=== PATIENT | male | born 1970 | race Caucasian/White ===

== ENCOUNTER → 2016-06-07 | Outpatient (CLI) | payer OTHER ==
[~2016-06-07] MED LIST: LCTX PO; LDXCR60 EXT; LISI-729 PO; METF-384 PO; MULTTAB58 PO; OMEG10007 PO; SITA50TA PO
[2016-06-07 09:28] LABS: BASO % 0.7 %; BASO ABS # 0.04 K/uL (0-0.2); COMPLETE YES; EOS % 11.2 %; IG% 0.5 %; LYMPH % 32.6 %; LYMPH ABS # 1.97 K/uL (1.2-3.4); MEAN CELL VOLUME 87.8 fL (80-100); MEAN CORPUSCULAR HEMOGLOBIN 30.4 pg (25-34); MEAN CORPUSCULAR HGB CONC 34.7 g/dl (32-36); MEAN PLATELET VOLUME 10.2 fL (7.4-10.4); MONO % 11.1 %; NEUT % 43.9 %; PLATELET COUNT 210 K/uL (130-400); WHITE BLOOD COUNT 6.05 K/uL (4.8-10.8)
[2016-06-07 09:37] LABS: ALT/SGPT 53 U/L (12-78); BLOOD UREA NITROGEN 18 mg/dl (7-18); BUN/CREATININE RATIO 18.2 (10-20); CALCIUM 9.2 mg/dl (8.5-10.1); CARBON DIOXIDE 25 mmol/L (21-32); CHLORIDE 102 mmol/L (98-107); CHOLESTEROL 189 mg/dl (0-200); CREATININE 0.96 mg/dl (0.60-1.40); GLUCOSE 117 mg/dl (70-99); POTASSIUM 4.2 mmol/L (3.5-5.1); SODIUM 136 mmol/L (136-145); TRIGLYCERIDES 270 mg/dl (0-150); VERY LOW DENSITY LIPOPROT CALC 54 mg/dl
[2016-06-07 09:40] LABS: ALKALINE PHOSPHATASE 50 U/L (45-117); AST/SGOT 13 U/L (15-37); CHOLESTEROL/HDL RATIO 5.4; HDL CHOLESTEROL 35 mg/dl; LDL CHOLESTEROL CALCULATED 100 mg/dl
[2016-06-07 09:51] LABS: ESTIMATED AVERAGE GLUCOSE 146 mg/dl; HA1C FLAG Normal (Normal)
[2016-06-07 10:09] LABS: RATIO 6.9 mcg/mg (0-30.0)
== END | disposition home or self-care (01) ==
LOC: C.LAB1850 07:07
PROVIDERS: ATTEND Nurse Practitioner Family
DX: E88.81 Metabolic syndrome and other insulin resistance (principal); E78.00 Pure hypercholesterolemia, unspecified; E11.9 Type 2 diabetes mellitus without complications; I10 Essential (primary) hypertension

== ENCOUNTER → 2016-09-25 | Outpatient (CLI) | payer OTHER ==
[2016-09-25 08:06] LABS: THYROID STIMULATING HORMONE 2.39 uIu/ml (0.300-4.500)
== END | disposition home or self-care (01) ==
LOC: C.LAB1850 07:06
PROVIDERS: ATTEND Nurse Practitioner Family
DX: F68.8 Other specified disorders of adult personality and behavior (principal); Z13.29 Encounter for screening for other suspected endocrine disorder

== ENCOUNTER → 2016-12-14 | Outpatient (CLI) | payer OTHER ==
[2016-12-14 10:09] LABS: BLOOD UREA NITROGEN 17 mg/dl (7-18); BUN/CREATININE RATIO 18.9 (10-20); CALCIUM 9.3 mg/dl (8.5-10.1); CARBON DIOXIDE 27 mmol/L (21-32); CHLORIDE 108 mmol/L (98-107); CHOLESTEROL 191 mg/dl (0-200); CREATININE 0.89 mg/dl (0.60-1.40); GLUCOSE 107 mg/dl (70-99); POTASSIUM 4.4 mmol/L (3.5-5.1); SODIUM 142 mmol/L (136-145); TRIGLYCERIDES 161 mg/dl (0-150); VERY LOW DENSITY LIPOPROT CALC 32 mg/dl
[2016-12-14 10:12] LABS: CHOLESTEROL/HDL RATIO 5.2; HDL CHOLESTEROL 37 mg/dl; LDL CHOLESTEROL CALCULATED 122 mg/dl
[2016-12-14 10:13] LABS: ESTIMATED AVERAGE GLUCOSE 154 mg/dl; HA1C FLAG Normal (Normal)
== END | disposition home or self-care (01) ==
LOC: C.LAB1850 06:54
PROVIDERS: ATTEND Nurse Practitioner Family
DX: E88.81 Metabolic syndrome and other insulin resistance (principal); E78.00 Pure hypercholesterolemia, unspecified; E11.9 Type 2 diabetes mellitus without complications; I10 Essential (primary) hypertension

== ENCOUNTER → 2017-04-10 | Outpatient (CLI) | payer OTHER ==
[2017-04-10 09:51] LABS: HEMOGLOBIN A1C 6.7 % (4.5-5.6)
[2017-04-10 09:55] LABS: BLOOD UREA NITROGEN 21 mg/dl (7-18); CALCIUM 9.6 mg/dl (8.5-10.1); CARBON DIOXIDE 29 mmol/L (21-32); CREATININE 1.02 mg/dl (0.60-1.40); GLUCOSE 122 mg/dl (70-99); POTASSIUM 4.5 mmol/L (3.5-5.1); SODIUM 135 mmol/L (136-145)
== END | disposition home or self-care (01) ==
LOC: C.LAB1850 07:06
PROVIDERS: ATTEND Nurse Practitioner Family
DX: E11.9 Type 2 diabetes mellitus without complications (principal)

== ENCOUNTER → 2017-07-24 | Outpatient (CLI) | payer OTHER ==
[2017-07-24 09:52] LABS: HEMOGLOBIN A1C 7.5 % (4.5-5.6)
[2017-07-24 09:58] LABS: ALBUMIN 4.3 gm/dl (3.4-5.0); ALT/SGPT 56 U/L (12-78); AST/SGOT 20 U/L (15-37); BLOOD UREA NITROGEN 21 mg/dl (7-18); CALCIUM 9.7 mg/dl (8.5-10.1); CARBON DIOXIDE 29 mmol/L (21-32); CREATININE 1.11 mg/dl (0.60-1.40); GLUCOSE 148 mg/dl (70-99); POTASSIUM 4.6 mmol/L (3.5-5.1); SODIUM 135 mmol/L (136-145)
[2017-07-24 10:01] LABS: ALKALINE PHOSPHATASE 54 U/L (45-117); CHOLESTEROL 209 mg/dl (0-200); LDL CHOLESTEROL CALCULATED 124 mg/dl; TOTAL PROTEIN 8.6 gm/dl (6.4-8.2)
== END | disposition home or self-care (01) ==
LOC: C.LAB1850 08:10
PROVIDERS: ATTEND Nurse Practitioner Family
DX: E88.81 Metabolic syndrome and other insulin resistance (principal); E78.00 Pure hypercholesterolemia, unspecified; E11.9 Type 2 diabetes mellitus without complications; I10 Essential (primary) hypertension

== ENCOUNTER → 2017-11-13 | Outpatient (CLI) | payer OTHER ==
[2017-11-13 09:48] LABS: HEMOGLOBIN A1C 8.3 % (4.5-5.6)
[2017-11-13 09:53] LABS: ALBUMIN 4.3 gm/dl (3.4-5.0); ALKALINE PHOSPHATASE 41 U/L (45-117); ALT/SGPT 54 U/L (12-78); AST/SGOT 19 U/L (15-37); BLOOD UREA NITROGEN 22 mg/dl (7-18); CARBON DIOXIDE 25 mmol/L (21-32); CREATININE 0.95 mg/dl (0.60-1.40); GLUCOSE 149 mg/dl (70-99); POTASSIUM 4.3 mmol/L (3.5-5.1); SODIUM 135 mmol/L (136-145); TOTAL PROTEIN 7.6 gm/dl (6.4-8.2)
== END | disposition home or self-care (01) ==
LOC: C.LAB1850 07:21
PROVIDERS: ATTEND Nurse Practitioner Family
DX: E11.9 Type 2 diabetes mellitus without complications (principal)

== ENCOUNTER 2019-05-02 04:14 | Inpatient (IN) ==
[2019-05-02] MEDS ORDERED: ONDANSETRON INJ 2 MG/ML 2 ML VIAL IV STA (04:46)
[2019-05-02] MEDS ORDERED: SODIUM CHLORIDE 0.9% 1000ML 1,000 ML IV ONE ×2 (04:46→05:31)
[2019-05-02] MEDS ORDERED: fentaNYL citrate 100 MCG/2 ML VIAL IV STA (04:46)
--- NOTE | 2019-05-02 04:51 | Emergency Department Note ---
ED Provider Note Name: MIRIAM PARKINSON Age: 48 Arrives Via: Family Vehicle Informant: Patient, CC: Abdominal pain HPI: 48M arrives for evaluation of abdominal pain. Patient with 12 hours severe abdominal pain. Associated with mild diarrhea initially which has stopped. Associated with vomiting throughout night. No cp, sob, headache, fevers, leg swelling, rashes nor other symptoms. No medications taken for this. Laying still makes better. Movement makes worse. No trauma/injury. history of umbilical hernia repair 20 yrs ago. ROS: See above HPI for pertinent positives & negatives. A total of 10 systems reviewed and were otherwise negative. Past Medical History:DMII, HTN, DLP Past Surgical History:Umbilical Hernia Repair, [place] Teeth, Hand surgery Family History:See Below Social History:See Below Home Medications:ATorvastatin, lisinopril, metformin, trulicity Allergies:none Vitals:Blood Pressure 152/82, Pulse 74, Resp 16, T 36.4C, O2 99% on RA Physical Exam: GENERAL: Patient is very uncomfortable appearing and in moderate distress. EYES: No scleral icterus, unremarkable pupils. ENT: Mucous membranes moist, no nasal congestion. NECK: No masses appreciated, nomeningismus, trachea is midline. RESPIRATORY: No dyspnea. Clear to auscultation and equal bilaterally. No wheeze, no rhonchi. CARDIOVASCULAR: Regular rate and rhythm.No murmurs, rubs, gallops appreciated. GASTROINTESTINAL: Mildly distended, hyperactive bowel sounds, diffuse nonspecific right abdominal TTP, umbilical hernia small non-tender. BACK: No midline tenderness, no CVA tenderness EXTREMITIES: Normal motion all extremities, no cyanosis, no edema. NEUROLOGIC: Alert and oriented, no acute motor or sensory deficits, no focal weakness, cranial nerves grossly intact. SKIN: No rash, no jaundice, no diaphoresis. ED Course: Prior Medical Record, Triage/Nursing Notes, Medications, Allergies reviewed by Me Vital Signs: reviewed and remarkable for HTN Labs:Reviewed and remarkable for mild bump in cr Interventions: Saline lock, fentanyl 100mcg IV, zofran 4mg IV, dilaudid 1mg IV x 3, nss bolus 1 L IV x 2, NSS infusion 125ml/hr IV Imaging:[facility] Radiologist interpretation reviewed by me: Proximal 6 mm right ureteral stone with moderate hydro Consults:Dr Antonette OLIVARES Hospitalist Reassessments/Times: Gradually improving pain though still requiring IV narcotics Blood pressure:Normal.No Referral necessary Disposition:Hospitalization Differentials: Bowel obstruction, Gastroenteritis, GB disase, Renal Colic, Pyelonephritis, AAA, Appendicitis, amongst others Medical Decision Makin yr old male with DMII, HTN, DLP with previous umbilical hernia repair arrives for evaluation severe worsening abdominal pain after day of nausea, vomiting diarrhea. Dehydrated on exam and very uncomfortable. Took multiple rounds IV narcotics to get comfortable. Labs looking ok. Given pain and findings felt CT indicated. CT with right prox ureteral stone with hydro. Given persistent pain, proximal stone and bump from baseline cr will need to come in. Hydrated here and will bring in to hospitalist. Impression: Calculus of proximal right ureter Hydronephrosis of right kidney Intractable Abdominal pain Kavon Jeronimo MD Impression & Plan Calculus of proximal right ureter, Hydronephrosis of right kidney, Intractable abdominal pain Past Med/Surg History Social History marital status: Current Living Situation: Spouse and Family current occupational status: employed Feels Safe at Home: Yes Smoking Status: Never smoker Second Hand Exposure: No ; Hx Alcohol Use: Yes Alcohol type: beer Alcohol Intake Frequency: Holi days/Special Occasions Hx Substance Use: No Dental Care, Regularly: Yes Physical Activity Frequency: 1-2 Times per Week Seatbelt Use: always Results & Data Vital Signs Vital Signs - 24 hr 05/02/19 04:22 05/02/19 04:56 05/02/19 06:02 Temperature 36.4 C L Temperature Source Oral Pulse Rate 74 Pulse Rate [Apical] 69 95 H Respiratory Rate 16 18 18 Respiratory Effort / Characteristics Non-Labored Spontaneous Respiratory Depth Normal Blood Pressure 152/82 H Blood Pressure [Left Arm] 141/77 H 142/87 H Blood Pressure Mean 105 Blood Pressure Mean [Left Arm] 98 105 Pulse Oximetry 99 99 95 Oxygen Delivery Method Room Air Room Air Nasal Cannula Oxygen Flow Rate 2 Sepsis Recent Fever Within 48 Hours No Sepsis New/Unexplained Change in Mental Status No Sepsis Action Taken by Nursing No Action Required 05/02/19 06:41 Temperature Temperature Source Pulse Rate Pulse Rate [Apical] 102 H Respiratory Rate 18 Respiratory Effort / Characteristics Respiratory Depth Blood Pressure Blood Pressure [Left Arm] 136/77 Blood Pressure Mean Blood Pressure Mean [Left Arm] 96 Pulse Oximetry 98 Oxygen Delivery Method Nasal Cannula Oxygen Flow Rate 2 Sepsis Recent Fever Within 48 Hours Sepsis New/Unexplained Change in Mental Status Sepsis Action Taken by Nursing Laboratory Data Result diagrams: 05/02/19 03:36 05/02/19 05:46 Lab Results 05/02/19 05/02/19 05/02/19 Range/Units 03:36 03:36 05:46 WBC 12.10 H (4.8-10.8) K/uL RBC 5.00 (4.7-6.1) M/uL Hgb 15.2 (14.0-18.0) g/dL Hct 43.6 (42-52) % MCV 87.2 (80-100) fL MCH 30.4 (25-34) pg MCHC 34.9 (32-36) g/dL RDW Std Deviation 38.6 (36.4-46.3) fL RDW Coeff of Sheldon 12.1 (11.5-14.5) % Plt Count 218 (130-400) K/uL MPV 10.0 (7.4-10.4) fL Immature Gran % (Auto) 0.6 % Neut % (Auto) 81.3 % Lymph % (Auto) 9.2 % [place] % (Auto) 7.7 % Eos % (Auto) 1.0 % Baso % (Auto) 0.2 % Immature Gran # (Auto) 0.07 H (0.00-0.02) K/uL Neut # (Auto) 9.85 H (1.4-6.5) K/uL Lymph # (Auto) 1.11 L (1.2-3.4) K/uL [place] # (Auto) 0.93 H (0.11-0.59) K/uL Eos # (Auto) 0.12 (0-0.5) K/uL Baso # (Auto) 0.02 (0-0.2) K/uL Sodium 133 L (136-145) mmol/L Potassium 4.6 (3.5-5.1) mmol/L Chloride 102 (98-107) mmol/L Carbon Dioxide 24 (21-32) mmol/L Anion Gap 7.0 (3-11) BUN 27 H (7-18) mg/dl Creatinine 1.50 H (0.6-1.4) mg/dl Est Cr Clr Drug Dosing 75.0 ml/min Est GFR ( Amer) 62.9 Est GFR (Non-Af Amer) 54.3 BUN/Creatinine Ratio 18.2 (10-20) Glucose 213 H (70-99) mg/dl Calcium 9.8 (8.5-10.1) mg/dl Total Bilirubin 0.7 (0.2-1) mg/dl Direct Bilirubin 0.1 (0-0.2) mg/dl AST 10 L (15-37) U/L ALT 36 (12-78) U/L Alkaline Phosphatase 59 (45-117) U/L Total Protein 8.3 H (6.4-8.2) gm/dl Albumin 4.2 (3.4-5.0) gm/dl Lipase 113 (73-393) U/L Administered Medications Sodium Chloride (Nss 1000ml) 1,000 mls @ 125 mls/hr IV .Q8H YAN Stop: 06/01/19 06:29 Last Admin: 05/02/19 06:28 Dose: 125 mls/hr Documented by: [id number] Ioversol (Optiray 320 100ml) 94 ml IV ONCE PRN PRN Reason: Interaction Checking Stop: 05/06/19 05:38 Last Admin: 05/02/19 05:39 Dose: 94 ml Documented by: [id number] Discontinued Medications Fentanyl Citrate (Fentanyl Citrate) 100 mcg IV NOW STA Stop: 05/02/19 04:47 Last Admin: 05/02/19 04:54 Dose: 100 mcg Documented by: [id number] Hydromorphone HCl (Dilaudid) 1 mg IV NOW STA Stop: 05/02/19 05:20 Last Admin: 05/02/19 05:22 Dose: 1 mg Documented by: [id number] Hydromorphone HCl (Dilaudid) 1 mg IV NOW STA Stop: 05/02/19 05:50 Last Admin: 05/02/19 05:53 Dose: 1 mg Documented by: [id number] Hydromorphone HCl (Dilaudid) 1 mg IV NOW STA Stop: 05/02/19 06:19 Last Admin: 05/02/19 06:29 Dose: 1 mg Documented by: [id number] Sodium Chloride (Nss 1000ml) 1,000 mls @ 999 mls/hr IV .Q1H1M ONE Stop: 05/02/19 05:46 Last Infusion: 05/02/19 05:56 Dose: 0 mls/hr Documented by: [id number] Admin: 05/02/19 04:52 Dose: 999 mls/hr Documented by: [id number] Sodium Chloride (Nss 1000ml) 1,000 mls @ 999 mls/hr IV .Q1H1M ONE Stop: 05/02/19 06:31 Last Infusion: 05/02/19 06:50 Dose: 0 mls/hr Documented by: [id number] Admin: 05/02/19 05:53 Dose: 999 mls/hr Documented by: [id number] Ondansetron HCl (Zofran) 4 mg IV NOW STA Stop: 05/02/19 04:47 Last Admin: 05/02/19 04:53 Dose: 4 mg Documented by: [id number] Discharge Plan Visit Data Chief Complaint: Vomiting Stated Complaint: ABD PAIN, VOMITING, DIZZY ED Provider: Kavon Jeronimo Discharge Problem: Calculus of proximal right ureter, Hydronephrosis of right kidney, Intractable abdominal pain Forms Stand Alone Forms: My [facility] Prescriptions Prescriptions: No Action metformin 1,000 mg tablet 1,000 mg PO BID Qty: 60 RF: 0 Trulicity 1.5 mg/0.5 mL pen injector See Rx Instructions SQ WEEKLY Qty: 2 RF: 5 amoxicillin 500 mg capsule 500 mg PO BID Qty: 60 RF: 3 atorvastatin 10 mg tablet 10 mg PO DAILY Qty: 90 RF: 0 lisinopril 10 mg tablet 10 mg PO DAILY Qty: 90 RF: 0 econazole 1 % cream 1 appln topical BID 28 Days Qty: 30 RF: 1
[2019-05-02 05:00] LABS: Basophils # (auto) 0.02 K/uL (0-0.2); Basophils % (auto) 0.2 %; Eosinophils # (auto) 0.12 K/uL (0-0.5); Hematocrit (blood only) 43.6 % (42-52); Hemoglobin 15.2 g/dL (14.0-18.0); Immature Granulocytes # (auto) 0.07 K/uL (0.00-0.02); Immature Granulocytes % (auto) 0.6 %; Lymphocytes # (auto) 1.11 K/uL (1.2-3.4); Lymphocytes % (auto) 9.2 %; Mean Corpuscular Hemoglobin 30.4 pg (25-34); Mean Corpuscular Hgb Conc 34.9 g/dL (32-36); Mean Corpuscular Volume 87.2 fL (80-100); Monocytes # (auto) 0.93 K/uL (0.11-0.59); Monocytes % (auto) 7.7 %; Neutrophils # (auto) 9.85 K/uL (1.4-6.5); Neutrophils % (auto) 81.3 %; Platelet Count 218 K/uL (130-400); RDW Coefficient of Variation 12.1 % (11.5-14.5); RDW Standard Deviation 38.6 fL (36.4-46.3)
[2019-05-02] MEDS ORDERED: HYDROmorphone INJ 1 MG/ML SYRINGE IV STA ×3 (05:19→06:18)
[2019-05-02 05:25] LABS: Albumin Level 4.2 gm/dl (3.4-5.0); BUN Creatinine Ratio 18.2 (10-20); Bilirubin,Total 0.7 mg/dl (0.2-1); Calcium 9.8 mg/dl (8.5-10.1); Est GFR (African American) 62.9; Est GFR (Non-African American) 54.3; Total Protein 8.3 gm/dl (6.4-8.2)
[2019-05-02] MEDS ORDERED: IOVERSOL 100ml IV PRN (05:39)
[2019-05-02 06:13] LABS: Potassium 4.6 mmol/L (3.5-5.1)
[2019-05-02 06:20] LABS: Bilirubin Direct 0.1 mg/dl (0-0.2)
[2019-05-02] MEDS ORDERED: SODIUM CHLORIDE 0.9% 1000ML 1,000 ML IV SCH (06:30)
[2019-05-02 07:48] LABS: Appearance Urine Clear (Clear); Bacteria Urine Automated Negative (Negative); Bilirubin Urine Negative (Negative); Blood Urine Trace (Negative); Cast Urine Automated 0 /lpf (0-5); Color Urine Yellow; Epithelial Cell Urine Auto 0-5 /lpf (0-5); Glucose Urine UA 2+ (Negative); Ketones Urine Trace (Negative); Leukocyte Esterase Urine Negative (Negative); Nitrite Urine Negative (Negative); Protein Urine Negative (Negative); RBC Urine Automated 0-4 /hpf (0-4); Specific Gravity Urine 1.033 (1.000-1.030); Urobilinogen Urine Negative (Negative); WBC Urine Automated 0 /hpf (0-5); pH Urine 5.5 (4.5-7.5)
--- NOTE | 2019-05-02 07:57 | History & Physical Report ---
Date of Service May 02, 2019 Assessment & Plan (1) Calculus of proximal right ureter: 6 mm obstructing stone at the UPJResulting in moderate hydronephrosis, ADRI. No evidence of urinary tract infection or sepsis at this time -Admit to medical floor -We will give aggressive IV fluids with normal saline at 125 mL's per hour Start Flomax 0.4 mg once daily Pain control with IV morphine as needed -Will keep n.p.o. for now -Consult urology for further stone management-May need stent placement for acute kidney injury if stone does not pass -Repeat basic metabolic panel in the morning Will not start antibiotics at this time unless develops Systemic signs of infection (2) Hydronephrosis of right kidney: Secondary to ureterolithiasis as above (3) ADRI (acute kidney injury): Creatinine up to 1.5 on admission which is elevated from baseline of 0.99 -Secondary to obstructing ureterolithiasis -Hydrating -Follow BMP in the morning -Stone management as per urology (4) Type 2 diabetes mellitus: Uncontrolled,, with hyperglycemia here in the 200s on admission -Hold home metformin and Trulicity -Check hemoglobin A1c in the morning -Sliding scale insulin and Accu-Cheks every 6 hours while n.p.o. and AC at bedtime after that once eating (5) Tinea pedis: Continue antifungal cream to feet -Recommend he see a full roll inspector as an outpatient for deep crevices in the foot in the setting of having diabetes as well as onychomycosis (6) Vitiligo: Chronic and stable He has been checked for thyroid disease and this is been normal so far (7) Recurrent cellulitis: Has a history of multiple episodes of left leg cellulitis requiring hosp italization in the past Follows with infectious disease and is on chronic amoxicillin for suppression -Holding amoxicillin while n.p.o. (8) Obese: BMI 33 -Needs weight loss counseling (9) Hypertension: Blood pressures here are stable -Holding home lisinopril for acute kidney injury (10) Hypercholesterolemia: Stable -Holding home atorvastatin while n.p.o. (11) Nausea & vomiting: Secondary to severe pain and ureterolithiasis -Now controlled with IV Zofran -Continue Zofran as needed -Continue pain control (12) DVT prophylaxis: SCDs Disposition-admit to medical floor Full code History of Present Illness Chief Complaint: Right-sided abdominal pain Primary Care Provider: Charlie Camarillo, III, [employer] This patient is a 48-year-old male with a history of DM 2, HTN, HL, recurrent left leg cellulitis, vitiligo, and childhood asthma, who presents to the ER with severe constant right lower quadrant and right flank pain since 930 last evening. The pain was 10/10 in severity, nonradiating, and associated with sweats and nausea and vomiting x2 of nonbloody emesis. He denies hematuria or urgency. He tried taking Imodium at home as he thought maybe he was getting diarrhea. His last bowel movement was yesterday. He denies fevers at home. No chest pain or shortness of breath, no lightheadedness. He has never had a kidney stone before. He was found to have a 6 mm right proximal ureteral kidney stone with moderate hydronephrosis. His urinalysis was without evidence of infection. He was mildly tachycardic likely secondary to dehydration, but afebrile in the ER. He was given IV Dilaudid and then did have some respiratory depression that was mild requiring 2 L nasal cannula for oxygenation. He will be admitted for ureterolithiasis with urinary obstruction with moderate hydronephrosis and acute kidney injury. Allergies Allergy/AdvReac Type Severity Reaction Status Date / Time No Known Allergies Allergy Unverified 05/02/19 04:39 Home Medications Home Medications Medication Instructions Recorded Confirmed Type metformin 1,000 mg tablet 1,000 mg PO BID #60 tab 09/15/18 05/02/19 Rx atorvastatin 10 mg tablet 10 mg PO DAILY #90 tab 11/17/18 05/02/19 History lisinopril 10 mg tablet 10 mg PO DAILY #90 tab 11/17/18 05/02/19 History Trulicity 1.5 mg/0.5 mL See Rx Instructions SQ WEEKLY #2 01/02/19 05/02/19 Rx subcutaneous pen injector ml NS amoxicillin 500 mg capsule 500 mg PO BID #60 cap 02/24/19 05/02/19 Rx econazole 1 % topical cream 1 appln TOPICAL BID 28 Days #30 gm 04/01/19 05/02/19 Rx fish oil-dha-epa 3 cap PO 05/02/19 History lactobacillus combination no.4 3,000 mmu cells PO DAILY 05/02/19 05/02/19 History [Probiotic] Past Med/Surg History Medical History Dysmetabolic syndrome X (Acute) Hypercholesterolemia (Acute) Hypertension (Acute) Obese (Acute) Recurrent cellulitis (Acute) Tinea pedis Type 2 diabetes mellitus Uncontrolled type 2 diabetes mellitus (Acute) Vitiligo (Acute) Surgical History History of hand surgery History of hernia repair (Resolved) History of hernia repair History of tonsillectomy and adenoidectomy History of wisdom tooth extraction Family History Mother Diabetes Valvular heart disease Grandfather Prostate cancer Father Thyroid disease Metabolic syndrome Heart disease Sister Thyroid disease Social History Preferred Language: Greenlandic marital status: Current Living Situation: Spouse and Family current occupational status: employed 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 [employer] Feels Safe at Home: Yes Smoking Status: Never smoker Second Hand Exposure: No ; Hx Alcohol Use: Yes Alcohol type: beer Alcohol Intake Frequency: Holidays/Special Occasions Hx Substance Use: No Dental Care, Regularly: Yes Physical Activity Frequency: 1-2 Times per Week Seatbelt Use: always Review of Systems Review of Systems: All systems reviewed & are unremarkable except as noted in HPI & below Physical Exam Constitutional: WD/WN, vitals as above + obese Eyes: PERRL, conjunctivae normal, anicteric sclerae ENMT: external ear and nose normal, oropharynx normal (With high palate) Neck: trachea midline, no thyromegaly Respiratory: normal respiratory effort, lungs clear to auscultation Cardiovascular: RRR, no murmur, no edema Chest (Breasts): Chest: normal inspection of chest Gastrointestinal (Abdomen): Inspection/Auscultation: normal bowel sounds; + abdomen abnormal to inspection (Scar in the periumbilical region from previous hernia repair) and abdomen not distended Percussion/Palpation: + abdomen tender (In right lower quadrant into right flank) and abdomen soft; no guarding, abdomen not rigid, no hepatosplenomegaly and no hernia No CVA tenderness Musculoskeletal: Extremities: extremities normal to inspection; no cyanosis and no clubbing Skin: + rash (Left foot especially plantar surface with large crevices with some scabs ) Neurologic: moves all extremities and awake; no focal motor deficits Psychiatric: A+Ox3, euthymic affect Lymphatic: no lymphedema Results & Data Vital Signs (Past 12 Hours) Vital Signs Temp Pulse Pulse Resp BP BP Pulse Ox 05/02/19 07:20 101 H 18 132/78 98 05/02/19 06:41 102 H 18 136/77 98 05/02/19 06:02 95 H 18 142/87 H 95 05/02/19 04:56 69 18 141/77 H 99 05/02/19 04:22 36.4 C L 74 16 152/82 H 99 Laboratory Results 05/02/19 05/02/19 05/02/19 Range/Units 07:20 05:46 03:36 WBC (4.8-10.8) K/uL RBC (4.7-6.1) M/uL Hgb (14.0-18.0) g/dL Hct (42-52) % MCV (80-100) fL MCH (25-34) pg MCHC (32-36) g/dL RDW Std Deviation (36.4-46.3) fL RDW Coeff of Sheldon (11.5-14.5) % Plt Count (130-400) K/uL MPV (7.4-10.4) fL Immature Gran % (Auto) % Neut % (Auto) % Lymph % (Auto) % [place] % (Auto) % Eos % (Auto) % Baso % (Auto) % Immature Gran # (Auto) (0.00-0.02) K/uL Neut # (Auto) (1.4-6.5) K/uL Lymph # (Auto) (1.2-3.4) K/uL [place] # (Auto) (0.11-0.59) K/uL Eos # (Auto) (0-0.5) K/uL Baso # (Auto) (0-0.2) K/uL Sodium 133 L (136-145) mmol/L Potassium 4.6 (3.5-5.1) mmol/L Chloride 102 (98-107) mmol/L Carbon Dioxide 24 (21-32) mmol/L Anion Gap 7.0 (3-11) BUN 27 H (7-18) mg/dl Creatinine 1.50 H (0.6-1.4) mg/dl Est Cr Clr Drug Dosing 75.0 ml/min Est GFR ( Amer) 62.9 Est GFR (Non-Af Amer) 54.3 BUN/Creatinine Ratio 18.2 (10-20) Glucose 213 H (70-99) mg/dl Calcium 9.8 (8.5-10.1) mg/dl Total Bilirubin 0.7 (0.2-1) mg/dl Direct Bilirubin 0.1 (0-0.2) mg/dl AST 10 L (15-37) U/L ALT 36 (12-78) U/L Alkaline Phosphatase 59 (45-117) U/L Total Protein 8.3 H (6.4-8.2) gm/dl Albumin 4.2 (3.4-5.0) gm/dl Lipase 113 (73-393) U/L Urine Color Yellow Urine Appearance Clear (Clear) Urine pH 5.5 (4.5-7.5) Ur Specific [place] 1.033 H (1.000-1.030) Urine Protein Negative (Negative) Urine Glucose (UA) 2+ H (Negative) Urine Ketones Trace H (Negative) Urine Blood Trace H (Negative) Urine Nitrite Negative (Negative) Urine Bilirubin Negative (Negative) Urine Urobilinogen Negative (Negative) Ur Leukocyte Esterase Negative (Negative) Urine WBC (Auto) 0 (0-5) /hpf Urine RBC (Auto) 0-4 (0-4) /hpf U Hyaline Cast (Auto) 0 (0-5) /lpf U Epithel Cells (Auto) 0-5 (0-5) /lpf Urine Bacteria (Auto) Negative (Negative) 05/02/19 Range/Units 03:36 WBC 12.10 H (4.8-10.8) K/uL RBC 5.00 (4.7-6.1) M/uL Hgb 15.2 (14.0-18.0) g/dL Hct 43.6 (42-52) % MCV 87.2 (80-100) fL MCH 30.4 (25-34) pg MCHC 34.9 (32-36) g/dL RDW Std Deviation 38.6 (36.4-46.3) fL RDW Coeff of Sheldon 12.1 (11.5-14.5) % Plt Count 218 (130-400) K/uL MPV 10.0 (7.4-10.4) fL Immature Gran % (Auto) 0.6 % Neut % (Auto) 81.3 % Lymph % (Auto) 9.2 % [place] % (Auto) 7.7 % Eos % (Auto) 1.0 % Baso % (Auto) 0.2 % Immature Gran # (Auto) 0.07 H (0.00-0.02) K/uL Neut # (Auto) 9.85 H (1.4-6.5) K/uL Lymph # (Auto) 1.11 L (1.2-3.4) K/uL [place] # (Auto) 0.93 H (0.11-0.59) K/uL Eos # (Auto) 0.12 (0-0.5) K/uL Baso # (Auto) 0.02 (0-0.2) K/uL Sodium (136-145) mmol/L Potassium (3.5-5.1) mmol/L Chloride (98-107) mmol/L Carbon Dioxide (21-32) mmol/L Anion Gap (3-11) BUN (7-18) mg/dl Creatinine (0.6-1.4) mg/dl Est Cr Clr Drug Dosing ml/min Est GFR ( Amer) Est GFR (Non-Af Amer) BUN/Creatinine Ratio (10-20) Glucose (70-99) mg/dl Calcium (8.5-10.1) mg/dl Total Bilirubin (0.2-1) mg/dl Direct Bilirubin (0-0.2) mg/dl AST (15-37) U/L ALT (12-78) U/L Alkaline Phosphatase (45-117) U/L Total Protein (6.4-8.2) gm/dl Albumin (3.4-5.0) gm/dl Lipase (73-393) U/L Urine Color Urine Appearance (Clear) Urine pH (4.5-7.5) Ur Specific [place] (1.000-1.030) Urine Protein (Negative) Urine Glucose (UA) (Negative) Urine Ketones (Negative) Urine Blood (Negative) Urine Nitrite (Negative) Urine Bilirubin (Negative) Urine Urobilinogen (Negative) Ur Leukocyte Esterase (Negative) Urine WBC (Auto) (0-5) /hpf Urine RBC (Auto) (0-4) /hpf U Hyaline Cast (Auto) (0-5) /lpf U Epithel Cells (Auto) (0-5) /lpf Urine Bacteria (Auto) (Negative) Diagnostic Findings CT of the abdomen/pelvis images personally reviewed by me, formal report not available yet. Stat read shows 6 mm proximal right ureteral stone at the UPJ with moderate hydronephrosis. No appendicitis or colitis or diverticulitis. With right renal cyst and left renal cysts. Also with hepatic steatosis and splenomegaly. Code Status & VTE Plan Code Status Full code VTE Prophylaxis Plan VTE Prophylaxis will be ordered: Yes PG Care Time/CCT Total # of Minutes Spent Total Time Spent with Patient: Total time spent is greater than 50% in coordination of care (as documented) at patient's floor/unit and/or counseling patient:
[2019-05-02] MEDS ORDERED: GLUCAGON FOR INJ 1 MG VIAL SQ PRN (08:40)
[2019-05-02] MEDS ORDERED: ONDANSETRON INJ 2 MG/ML 2 ML VIAL IV PRN (08:40)
[2019-05-02] MEDS ORDERED: CARBOHYDRATES FOR HYPOGLYCEMIA PO PRN (08:40)
[2019-05-02] MEDS ORDERED: DEXTROSE 50% 50 ML SYRINGE IV PRN (08:40)
[2019-05-02] MEDS ORDERED: GLUCOSE 40% GEL 15 GM TUBE PO PRN (08:40)
[2019-05-02] MEDS ORDERED: GLUCOSE 10 TABS/TUBE PO PRN (08:40)
--- NOTE | 2019-05-02 08:42 | CT Scan Report ---
ABDOMEN AND PELVIS CT WITH IV CONTRAST CT DOSE: 872.10 mGy.cm HISTORY: Acute generalized abdominal pain with vomiting diffuse abdo pain, vomiting. ? SBO TECHNIQUE: Multiaxial CT images of the abdomen and pelvis were performed following the IV administrat ion of 94 cc of Optiray 320, A dose lowering technique was utilized adhering to the principles of AL GÓMEZ. COMPARISON STUDY: CT abdomen and pelvis 06/01/2012 FINDINGS: Lung bases are generally clear with only minimal bibasilar atelectasis. 4 mm subpleural nodule of the lateral segment right middle lobe is unchanged from 2013 suggestive of benign etiology. There is no pneumatosis or pneumoperitoneum. Inferior cardiac chambers are mildly enlarged. Aortic annular calcif ications are noted. Splenomegaly, 14.7 cm. Adrenal glands, gallbladder and pancreas are unremarkable. There is suggestion of hepatic steatosis. The posterior right hepatic lobe is heterogeneous without mass or cirrhosis identified. Patency of the hepatic and portal veins. Diminutive IVC with multiple v enous collaterals and prominent azygos and hemiazygos veins redemonstrated. The aorta is unremarkable . No adenopathy. Multiple renal sinus cysts are present bilaterally. There are 2 nonobstructing calculi noted about th e left kidney measuring up to 3 mm. 9 mm hypodensity of the interpolar left kidney suggest probable c yst. 4.0 cm cyst of the interpolar right kidney. There is mild right-sided hydroureteronephrosis with urothelial thickening, moderate perirenal and periureteral stranding with delayed right-sided nephro gram secondary to an obstructing 4 x 4 x 6 mm calculus of the proximal right ureter just distal to th e ureteropelvic junction at the level of L2-L3. Partial distention of the bladder. Unremarkable prost ate. 1.5 cm fatty attenuating focus of the distal gastric body is suggestive of a submucosal lipoma has mi ldly increased in size from comparison. No bowel obstruction or bowel wall thickening. The majority o f the large bowel is decompressed. Normal appendix. Small fat filled periumbilical hernia, diastases 2.0 cm. Additionally, there is a small supraumbilical fat filled hernia as well with diastases recti. Bones appear intact. Degenerative changes of the lumbar spine, SI joints and hips. Posterior disc os teophyte complex at L5-S1 and L3-L4. There is at least mild central canal stenosis at L3-L4 with a le ast mild foraminal narrowing. Foraminal stenosis is also present at L5-S1. There is mild avascular ne crosis without articular collapse of the right femoral head. IMPRESSION: 1. Mild right-sided hydroureteronephrosis secondary to an obstructing calculus at the level of L2-L3. This results in a delayed nephrogram and there is also mild urothelial thickening and enhancement of the right renal pelvis and proximal right ureter which may be reactive. Correlate with urinalysis to exclude superimposed infectious etiology. 2. Nonobstructing left nephrolithiasis. 3. Bilateral renal sinus cysts. 4. No bowel obstruction or bowel wall thickening. Normal appendix. 5. Hepatic steatosis. 6. Avascular necrosis without articular collapse of the right femoral head. 7. Diastases recti with small fat filled ventral abdominal wall hernias. ACT 112: Negative or not required by law. The above report was generated using voice recognition software. It may contain grammatical, syntax o r spelling errors. Electronically signed by: Guilherme Clancy M.D. 05/02/2019 8:41 AM
[2019-05-02] MEDS ORDERED: INFLUENZA ADMINISTRATION CHARGE ONE (09:00)
[2019-05-02] MEDS ORDERED: INFLUENZA VIRUS QUAD VACCINE 0.5 ML SYR IM ONE (09:00)
[2019-05-02] MEDS: ECONAZOLE NITRATE 1% CRM 15 GM TUBE TOP SCH ×2 (10:15→21:28)
[2019-05-02] MEDS: TAMSULOSIN HCL 0.4 MG CAP PO SCH (10:16)
[2019-05-02] MEDS: SODIUM CHLORIDE 0.9% 1000ML 1,000 ML IV SCH ×2 (10:16→18:12)
[2019-05-02] MEDS: INSULIN ASPART 100 UNITS/ML 3 ML PEN SC SCH ×4 (10:17→21:22)
[2019-05-02] MEDS: MoRPHine SULFATE 4 MG/ML 1 ML CARP\\VIAL IV PRN ×2 (10:25→13:43)
--- NOTE | 2019-05-02 14:23 | Urology Consultation ---
Date of Consultation May 02, 2019 Assessment & Plan (1) Calculus of proximal right ureter: Patient admitted and not being hydrated. Is currently n.p.o. but will give a diet here shortly. Patient has significant pain that is controlled with medication but does have waves of severe episodes. Patient's nausea is now better controlled. Is tolerating hydration considerably better. Discussed different options. Patient's partner does have a history of stones as well. Patient herself has never had stones. No other family history. Discussed different options. Discussed conservative measures. Discussed option such as intervention with stent. Discussed treatments. Discussed ureteroscopy and lithotripsy. Discussed different options including hydration, maximum expulsion therapy, and supportive care. We will continue with hydration. Will allow patient have a diet for now. Plan to make n.p.o. at midnight in case patient has yet to pass stone or if pain becomes severe or uncontrollable. We will continue to follow closely. Otherwise we will plan for follow-up. History of Present Illness Attending Physician: Payton Tanner MD History of Present Illness Patient with sudden onset of severe flank pain rating to groin on right side and mid abdomen. Patient has a history of hernias and thought might be having a severe bowel issue. Patient had severe pain which was radiating down the side into the back and flank. Patient has never had such severe pain. He was unable to find position of comfort. Had some severe nausea with occasional vomiting. Was seen in the ER and was found to have an obstructing 4 to 6 mm stone in the ureter on the right side. Patient has also stones on the left side but does not appear obstructing. Patient had some significant ADRI. Has been being hydrated. His pain is better controlled with medication. Allergies Allergy/AdvReac Type Severity Reaction Status Date / Time No Known Allergies Allergy Unverified 05/02/19 04:39 Home Medications Home Medications Medication Instructions Recorded Confirmed Type metformin 1,000 mg tablet 1,000 mg PO BID #60 tab 09/15/18 05/02/19 Rx atorvastatin 10 mg tablet 10 mg PO DAILY #90 tab 11/17/18 05/02/19 History lisinopril 10 mg tablet 10 mg PO DAILY #90 tab 11/17/18 05/02/19 History Trulicity 1.5 mg/0.5 mL See Rx Instructions SQ WEEKLY #2 01/02/19 05/02/19 Rx subcutaneous pen injector ml NS amoxicillin 500 mg capsule 500 mg PO BID #60 cap 02/24/19 05/02/19 Rx econazole 1 % topical cream 1 appln TOPICAL BID 28 Days #30 gm 04/01/19 05/02/19 Rx fish oil-dha-epa 3 cap PO 05/02/19 History lactobacillus combination no.4 3,000 mmu cells PO DAILY 05/02/19 05/02/19 History [Probiotic] Patient History Medical History Dysmetabolic syndrome X (Acute) Hypercholesterolemia (Acute) Hypertension (Acute) Obese (Acute) Recurrent cellulitis (Acute) Tinea pedis Type 2 diabetes mellitus Uncontrolled type 2 diabetes mellitus (Acute) Vitiligo (Acute) Surgical History History of hand surgery History of hernia repair (Resolved) History of hernia repair History of tonsillectomy and adenoidectomy History of wisdom tooth extraction Family History Mother Diabetes Valvular heart disease Grandfather Prostate cancer Father Thyroid disease Metabolic syndrome Heart disease Sister Thyroid disease Social History Preferred Language: [place] 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 Ability: Effective 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 Dancing Required: No Beliefs That Will Affect Care: None marital status: Current Living Situation: Spouse current occupational status: employed 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 HEENT: Normocephalic Atraumatic. Inspection normal. Cranial Nerves 2-12 Grossly intact. Normal inspection of face. Normal inspection of neck. Psychologic: Normal affect. Respiratory: Nonlabored. No use of accessory muscles. No tachypnea or dyspnea. Cardiovascular: No tachycardia Skin: [place] and Dry. No rashes or visible lesions. Extremities/Lymphatics: No edema Abdomen: Soft Non-distended. No rebound or guarding. Obese Results & Data Vital Signs (Past 12 Hours) Vital Signs Temp Pulse Pulse Pulse Resp BP BP 05/02/19 08:41 36.6 C 74 16 147/76 H 05/02/19 08:35 36.6 C 74 16 147/76 H 05/02/19 08:21 97 H 18 127/75 05/02/19 07:20 101 H 18 132/78 05/02/19 06:41 102 H 18 136/77 05/02/19 06:02 95 H 18 142/87 H 05/02/19 04:56 69 18 141/77 H 05/02/19 04:22 36.4 C L 74 16 152/82 H Pulse Ox 05/02/19 08:41 97 05/02/19 08:35 97 05/02/19 08:21 98 05/02/19 07:20 98 05/02/19 06:41 98 05/02/19 06:02 95 05/02/19 04:56 99 05/02/19 04:22 99 PG Care Time/CCT Total # of Minutes Spent Total Time Spent with Patient: Total time spent is greater than 50% in coordination of care (as documented) at patient's floor/unit and/or counseling patient:
[2019-05-02] MEDS: KETOROLAC 30 MG/ML VIAL IV PRN (15:43)
[2019-05-02] MEDS ORDERED: Nursing to Pharmacy Communication ONE (17:26)
[2019-05-03] MEDS: SODIUM CHLORIDE 0.9% 1000ML 1,000 ML IV SCH ×3 (00:23→21:58)
[2019-05-03] MEDS: INSULIN ASPART 100 UNITS/ML 3 ML PEN SC SCH ×5 (00:30→21:37)
[2019-05-03 06:24] LABS: Basophils # (auto) 0.02 K/uL (0-0.2); Basophils % (auto) 0.3 %; Eosinophils # (auto) 0.29 K/uL (0-0.5); Eosinophils % (auto) 3.7 %; Hemoglobin 12.2 g/dL (14.0-18.0); Immature Granulocytes # (auto) 0.02 K/uL (0.00-0.02); Immature Granulocytes % (auto) 0.3 %; Lymphocytes # (auto) 1.69 K/uL (1.2-3.4); Lymphocytes % (auto) 21.4 %; Mean Corpuscular Hemoglobin 29.3 pg (25-34); Mean Corpuscular Volume 88.7 fL (80-100); Mean Platelet Volume 9.7 fL (7.4-10.4); Monocytes % (auto) 11.4 %; Neutrophils # (auto) 4.97 K/uL (1.4-6.5); Neutrophils % (auto) 62.9 %; Platelet Count 162 K/uL (130-400); RDW Coefficient of Variation 12.4 % (11.5-14.5); RDW Standard Deviation 39.7 fL (36.4-46.3); Red Blood Count 4.17 M/uL (4.7-6.1); White Blood Count 7.89 K/uL (4.8-10.8)
[2019-05-03 06:49] LABS: BUN Creatinine Ratio 14.9 (10-20); Calcium 8.6 mg/dl (8.5-10.1); Est GFR (African American) 74.1; Est GFR (Non-African American) 63.9; Potassium 4.5 mmol/L (3.5-5.1)
[2019-05-03] MEDS: MoRPHine SULFATE 4 MG/ML 1 ML CARP\\VIAL IV PRN (07:42)
[2019-05-03] MEDS: ECONAZOLE NITRATE 1% CRM 15 GM TUBE TOP SCH ×2 (09:13→21:58)
[2019-05-03] MEDS: KETOROLAC 30 MG/ML VIAL IV PRN ×2 (10:13→17:40)
--- NOTE | 2019-05-03 13:13 | Urology Progress Note ---
Date of Service May 03, 2019 Assessment & Plan (1) Calculus of proximal right ureter: Patient n.p.o. Discussed options. Discussed risks and benefits. Discussed intervention. We will plan for cystoscopy with right laser lithotripsy and ureteroscopy. Risks and benefits discussed at length for procedure. These include bleeding, infection, injury to surrounding tissues or organs, and risks associated with anesthesia. Patient states understanding and agrees to proceed. Will sign consent and schedule. Subjective Patient continues to have pain radiating to flank and back. Coming in waves. Has been improved with medication but still having episodes. Is requiring as needed medication almost [id number]. No further nausea. No vomiting. Has been hydrating. No other major changes or issues. Review of Systems Review of Systems: All systems reviewed & are unremarkable except as noted in HPI & below Physical Exam Physical Exam: General: Alert in no acute distress. HEENT: Normocephalic Atraumatic. Inspection normal. Cranial Nerves 2-12 Grossly intact. Normal inspection of face. Normal inspection of neck. Psychologic: Normal affect. Respiratory: Nonlabored. No use of accessory muscles. No tachypnea or dyspnea. Cardiovascular: No tachycardia Skin: [place] and Dry. No rashes or visible lesions. Extremities/Lymphatics: No edema Abdomen: Soft Non-distended. No rebound or guarding. Obese Results & Data Vital Signs (Past 12 Hours) Vital Signs Temp Pulse Resp BP Pulse Ox 05/03/19 07:30 36.6 C 85 17 108/64 94 PG Care Time/CCT Total # of Minutes Spent Total Time Spent with Patient: Total time spent is greater than 50% in coordination of care (as documented) at patient's floor/unit and/or counseling patient:
[2019-05-03] MEDS ORDERED: LIDOCAINE HCL 2% 2 ML VIAL/AMP(20MG/ML) INFIL ONE (13:17)
[2019-05-03] MEDS ORDERED: ONDANSETRON INJ 2 MG/ML 2 ML VIAL ONE (13:17)
[2019-05-03] MEDS ORDERED: PROPOFOL IV EMULSION 10 MG/ML 20 ML VIAL IV ONE (13:17)
[2019-05-03] MEDS ORDERED: MIDAZOLAM HCL 1 MG/ML 2ML VIAL ONE (13:18)
[2019-05-03] MEDS ORDERED: fentaNYL citrate 100 MCG/2 ML VIAL ONE (13:18)
[2019-05-03] MEDS ORDERED: IOTHALAMATE MEGLUMINE II 17.2% 250 ML VIAL ONE (13:24)
--- NOTE | 2019-05-03 13:55 | Anesthesiology Consultation ---
Date of Service May 03, 2019 Assessment & Plan (1) Encounter for pre-operative examination: Chart Review Chart Review: Acceptable Risk for Surgery and Patient NOT seen in Pre Admission Testing Consults Requested none ASA ASA2 Proposed Anesthesia Anesthesia Type: General Risk / Benefits Reviewed With: PT / POA / Parent / Guardian, Accepts Plan and Informed Consent Obtained History Surgery Operation Date: 05/03/19 14:00 Proposed Procedures p Cystoscopy, Ureteroscopy, Stent Insertion - Alejandro Rodriguez DO s Laser Lithotripsy Holmium - Alejandro Rodriguez DO Height/Weight Height: 5 ft 11 in Weight: 102.3 kg Allergies Allergy/AdvReac Type Severity Reaction Status Date / Time No Known Allergies Allergy Unverified 05/02/19 04:39 Medications Home Medications Medication Instructions Recorded Confirmed Last Taken metformin 1,000 mg tablet 1,000 mg PO BID #60 tab 09/15/18 05/02/19 Unknown atorvastatin 10 mg tablet 10 mg PO DAILY #90 tab 11/17/18 05/02/19 Unknown lisinopril 10 mg tablet 10 mg PO DAILY #90 tab 11/17/18 05/02/19 Unknown Trulicity 1.5 mg/0.5 mL See Rx Instructions SQ WEEKLY #2 01/02/19 05/02/19 Unknown subcutaneous pen injector ml NS amoxicillin 500 mg capsule 500 mg PO BID #60 cap 02/24/19 05/02/19 Unknown econazole 1 % topical cream 1 appln TOPICAL BID 28 Days #30 gm 04/01/19 05/02/19 Unknown fish oil-dha-epa 3 cap PO 05/02/19 Unknown lactobacillus combination no.4 3,000 mmu cells PO DAILY 05/02/19 05/02/19 Unknown [Probiotic] Active Medications Generic Name Dose Route Start Last Admin Trade Name Freq PRN Reason Stop Dose Admin Econazole Nitrate 1 appln 05/02/19 09:00 05/03/19 09:13 Spectazole 1% TOP 06/01/19 08:59 1 appln BID YAN Administration Sodium Chloride 1,000 mls @ 125 mls/hr 05/02/19 08:40 05/03/19 13:31 Nss 1000ml IV 06/01/19 08:39 0 mls/hr .Q8H YAN Infusion Insulin Aspart 0 units 05/02/19 09:00 05/03/19 12:29 Novolog Flexpen SC 02/17/20 08:59 Not Given Q6 YAN Ioversol 94 ml 05/02/19 05:39 05/02/19 05:39 Optiray 320 100ml IV 05/06/19 05:38 94 ml ONCE PRN Administration Interaction Checking Ketorolac Tromethamine 30 mg 05/02/19 14:24 05/03/19 10:13 Toradol IV 05/07/19 14:23 30 mg Q6H PRN Administration Pain Morphine Sulfate 4 mg 05/02/19 08:40 05/03/19 07:42 Morphine Sulfate IV 05/16/19 08:39 4 mg Q3H PRN Administration Pain Tamsulosin HCl 0.4 mg 05/02/19 09:00 05/02/19 10:16 Flomax PO 06/01/19 08:59 0.4 mg QAM YAN Administration NPO Date Last Intake of Fluids: 05/02/19 Time Last Intake of Fluids: 18:00 Date Last Intake of Solids: 05/02/19 Time Last Intake of Solids: 22:00 Past Medical History Medical History Dysmetabolic syndrome X (Acute) Hypercholesterolemia (Acute) Hypertension (Acute) Obese (Acute) Recurrent cellulitis (Acute) Tinea pedis Type 2 diabetes mellitus Uncontrolled type 2 diabetes mellitus (Acute) Vitiligo (Acute) Exercise / Class Metabolic Activity II 4-5 Yardwork/Stairs/Walk up hill Past Family History Family History Mother Diabetes Valvular heart disease Grandfather Prostate cancer Father Thyroid disease Metabolic syndrome Heart disease Sister Thyroid disease Past Surgical History Surgical History History of hand surgery History of hernia repair (Resolved) History of hernia repair History of tonsillectomy and adenoidectomy History of wisdom tooth extraction Past Anesthesia History No Hx of Anesthesia Complications and No Family Hx of Anesthesia Complications History of PONV No Hx of PONV and No Hx of Motion Sickness Social History Smoking Status: Never smoker Do You Dip or Chew Tobacco: No Hx Alcohol Use: No Alcohol type: beer alcohol intake frequency: holidays/special occasions only Hx Substance Use: No substance use type: does not use Physical Exam Vital Signs Last Vital Signs Temp 36.6 C 05/03/19 07:30 Pulse 85 05/03/19 07:30 Resp 17 05/03/19 07:30 BP 108/64 05/03/19 07:30 Pulse Ox 94 05/03/19 07:30 ENMT Mouth: no dentition abnormality Thyromental Distance: > or= 3.5 Finger Breadths Mallampati Class: II Neck normal visual inspection Respiratory normal respiratory effort Auscultation: lungs clear to auscultation bilaterally Cardiovascular Rate/Rhythm: regular rate and regular rhythm Psychiatric Orientation: alert Testing Laboratory Results 05/03/19 05:42 05/03/19 05:42 Urine Color Yellow 05/02/19 07:20 Urine Appearance Clear (Clear) 05/02/19 07:20 Urine pH 5.5 (4.5-7.5) 05/02/19 07:20 Ur Specific [place] 1.033 (1.000-1.030) H 05/02/19 07:20 Urine Protein Negative (Negative) 05/02/19 07:20 Urine Glucose (UA) 2+ (Negative) H 05/02/19 07:20 Urine Ketones Trace (Negative) H 05/02/19 07:20 Urine Nitrite Negative (Negative) 05/02/19 07:20 Ur Leukocyte Esterase Negative (Negative) 05/02/19 07:20 Urine WBC (Auto) 0 /hpf (0-5) 05/02/19 07:20 Urine RBC (Auto) 0-4 /hpf (0-4) 05/02/19 07:20 U Hyaline Cast (Auto) 0 /lpf (0-5) 05/02/19 07:20 U Epithel Cells (Auto) 0-5 /lpf (0-5) 05/02/19 07:20 Urine Bacteria (Auto) Negative (Negative) 05/02/19 07:20 05/03/19 05/03/19 12:06 06:08 POC Glucose 102 H 102 H
[2019-05-03] MEDS ORDERED: CEFAZOLIN 250 MG/ML 1 GM VIAL ONE (14:11)
[2019-05-03] MEDS ORDERED: ACETAMINOPHEN 1000 MG/100 ML IV IV ONE (14:22)
[2019-05-03] MEDS ORDERED: CEFAZOLIN 2000MG 2,000 MG/15 ML SYR IV ONE (14:24)
[2019-05-03] MEDS ORDERED: GLYCOPYRROLATE 0.2 MG/ML VIAL ONE (14:31)
--- NOTE | 2019-05-03 14:42 | Operative Report ---
[facility] Post Operative Report Pre & Post Diagnosis Operation Date: 05/03/19 14:00 Pre-Op Diagnosis: URETEROLITHIASIS, HYDRONEPHROSIS Post-Op Diagnosis: URETEROLITHIASIS, HYDRONEPHROSIS I identified the patient and participated in the time-out.: Yes Procedure Operation Date: 05/03/19 14:00 Actual Procedures p Cystoscopy, Right Ureteroscopy, Ureteral Dilation Laser Lithotripsy, Retrograde Pyelogram, Stent Insertion(Right) - Alejandro Rodriguez DO Surgeon Alejandro Rodriguez, II, DO Motor Coach Driver None Estimated Blood Loss 1 Findings Consistent with Post-Op Diagnosis Stone destroyed to dust and small fragments. Specimens None Drains 6 Fr Multilength Anesthesia Type General Complications none Disposition Disposition: Recovery Room Indications Patient with bothersome stones. Risks and benefits discussed at length. Description of Procedure Patient was consented and brought back to the operating room. Patient was placed under anesthesia in the supine position and moved to the dorsal lithotomy position. Patient was prepped and draped in the regular sterile fashion. A time out was completed. A 30degree Cystoscope was placed into the bladder and the entire bladder was examined. The UO's were identified. The UO was cannulized with a catheter and a retrograde pyelogram was completed. A wire was then placed. The ureter had to be dilated to allow passage of the scope. This was completed. The Rigid ureteroscope was taken into the ureter. The scope was taken to the proximal ureter but was not able to get to the stone. The rigid scope was removed while a second wire was placed. A ureteral access sheath was placed. The rigid scope was taken into the right ureter. The stone was identified. A laser fiber was selected and the stones were pulverized to dust and small fragments. The scope advanced to the renal pelvis. The entire area was inspected. No stones were discovered in the pelvis. The entire area was once again examined. No residual large fragments or areas of concern were noted. The scope was slowly removed with the wire left in place. Contrast was placed through the scope for a pyelogram to assist in stent placement. The entire ureter was examined as the scope was slowly removed. No obstructions or other areas of concern were noted. With the wire in place, a 6 Fr Double J stent was placed. It was confirmed with fluoroscopy. With the stent in place, the bladder was emptied. The scope was removed. The patient was cleaned, aroused from anesthesia, and transferred to the pacu in stable condition having tolerated the procedure well with no complications. I was present and participated in all aspects of the procedure. The patient will be monitored in the PACU until transferred. I attest to the content of the Intraoperative Record and any orders documented therein. Any exceptions are noted below.
--- NOTE | 2019-05-03 14:54 | Fluoroscopy Report ---
FL retrograde includes kub CLINICAL HISTORY: 48 years-old Male presenting with STENT PLACEMENT, LASER LITHOTRIPSY. TECHNIQUE: 2 fluoroscopic image(s) recorded as part of an intraoperative procedure. COMPARISON: CT from 05/02/2019. FINDINGS/IMPRESSION: Right ureteral stent now in place. Please see surgical report for further details. Fluoroscopy dosage (mGy): 56.58. Fluoroscopy time: 157.5 seconds. Number or time of high level fluoroscopy (HLF), digital spot, or digital subtraction images: 0. ACT 112: Negative or not required by law. Electronically signed by: Lars Dewey M.D. 05/03/2019 2:53 PM
[2019-05-03] MEDS ORDERED: ePHEDrine sulfate 50 MG/ML AMP IV PRN (14:58)
[2019-05-03] MEDS ORDERED: ONDANSETRON INJ 2 MG/ML 2 ML VIAL IV PRN (14:58)
[2019-05-03] MEDS ORDERED: fentaNYL citrate 100 MCG/2 ML VIAL IV PRN (14:58)
[2019-05-03] MEDS ORDERED: ATROPINE SULFATE 0.1 MG/ML 10ML SYR IV PRN (14:58)
--- NOTE | 2019-05-03 15:34 | Anesthesiology Progress Note ---
Date of Service May 03, 2019 Anesthesia Post Procedure Vital Signs Vital Signs: Temp Pulse Pulse Resp BP Pulse Ox 05/03/19 15:30 36.6 C 79 15 137/87 97 05/03/19 15:20 36.6 C 87 15 132/88 96 05/03/19 15:10 69 19 141/93 H 100 05/03/19 15:00 86 14 144/53 H 100 05/03/19 14:51 36.8 C 99 H 14 154/90 H 95 05/03/19 07:30 36.6 C 85 17 108/64 94 05/03/19 00:01 36.7 C 90 14 116/71 94 05/02/19 16:03 36.6 C 87 16 122/70 94 Pain Intensity Right Abdomen: Pain Intensity: 3 Transfer of Care Handoff Completed per policy Notes Mental Status: alert / awake / arousable Patient Amnestic to Procedure: Yes Nausea / Vomiting: adequately controlled Pain: adequately controlled Airway Patency, RR, SpO2: stable & adequate BP & HR: stable & adequate Hydration State: stable & adequate Anesthetic Complications: no major complications apparent
[2019-05-03] MEDS: TAMSULOSIN HCL 0.4 MG CAP PO SCH (16:13)
--- NOTE | 2019-05-03 21:10 | Hospitalist Progress Note ---
Date of Service May 03, 2019 Assessment & Plan (1) Calculus of proximal right ureter: 6 mm obstructing stone at the UPJ Resulting in moderate hydronephrosis, ADRI. No evidence of urinary tract infection or sepsis. Had leukocytosis of 12 K on admission likely due to stress and vomiting and is now improved to 7 without any antibiotics Acute kidney injury is now resolving with creatinine down to 1.31 on the morning after admission -Now status post laser lithotripsy to blast the stone and stent placed in the right ureter on the afternoon of 05/03 -Continue hydration with IV fluids with normal saline at 125 mL's per hour -Continue Flomax 0.4 mg once daily -Continue pain control with IV morphine and IV Toradol as needed-still requiring IV pain medicine status post procedure-we will keep overnight for pain control -Appreciate urology management -Repeat basic metabolic panel in the morning (2) Hydronephrosis of right kidney: Secondary to ureterolithiasis as above-should resolve now with stent placement (3) ADRI (acute kidney injury): Creatinine up to 1.5 on admission which is elevated from baseline of 0.99 Creatinine down to 1.31 today as above with IV fluid hydration -Secondary to obstructing ureterolithiasis -Continue hydrating -Follow BMP in the morning -Continue to hold home lisinopril and metformin -Stone management as per urology as above (4) Type 2 diabetes mellitus: Uncontrolled,, with hyperglycemia here in the 200s on admission, now improved down to the low 100s while n.p.o. -Continue to hold home metformin and Trulicity -Check hemoglobin [id number] pending -Continue sliding scale insulin and Accu-Cheks (5) Tinea pedis: Continue antifungal cream to feet -Recommend he see a manager outreach as an outpatient for deep crevices in the foot in the setting of having diabetes as well as onychomycosis (6) Vitiligo: Chronic and stable He has been checked for thyroid disease and this is been normal so far (7) Recurrent cellulitis: Has a history of multiple episodes of left leg cellulitis requiring hospi talization in the past Follows with infectious disease and is on chronic amoxicillin for suppression -Holding amoxicillin while n.p.o.-can restart tomorrow morning (8) Obese: BMI 33 -Needs weight loss counseling (9) Hypertension: Blood pressures here are stable -Holding home lisinopril for acute kidney injury as above (10) Hypercholesterolemia: Stable -Holding home atorvastatin while n.p.o.-can restart in the morning if tolerating diet (11) Nausea & vomiting: Secondary to severe pain and ureterolithiasis -Now controlled with IV Zofran and relief of pain and obstruction with stone -Continue Zofran as needed -Continue pain control (12) Lipoma of stomach: Incidentally noted on CT scan of the abdomen/pelvis-noted to be slightly larger than previous -Follow-up with PCP (13) Renal cyst: Noted bilateral cysts on kidneys on CT abdomen/pelvis -Urology evaluation appreciated -Follow with urology as an outpatient (14) Splenomegaly: Spleen noted to be mildly enlarged at 14.[address] abdomen/pelvis Unclear how long this has been going on, perhaps is related to fatty liver? -Follow-up with PCP as an outpatient (15) Fatty liver: Noted incidentally on CT of the abdomen/pelvis -Advised weight loss and low carbohydrate diet -Should follow-up with PCP and/or gastroenterology as an outpatient Discussed with patient and his risk of progression to cirrhosis and liver failure if left untreated or worsens (16) DVT prophylaxis: SCDs Disposition-continued stay on medical floor, likely discharge to home on Saturday if has adequate pain control, will need follow-up with urology Full code Subjective Patient was seen in the early afternoon prior to any urological intervention yet. He continued to be having severe right lower quadrant pain and was requiring multiple doses of both Toradol and morphine. He had not passed a stone yet. He is urinating. He has been n.p.o. all morning. I discussed the case with urology who plans to take him to the OR later this afternoon. Denies chest pain or shortness of breath, no lightheadedness, no nausea or vomiting. Review of Systems Review of Systems: All systems reviewed & are unremarkable except as noted in HPI & below Physical Exam Constitutional: WD/WN, vitals as above + obese Eyes: + anicteric sclerae Neck: trachea midline, no thyromegaly Respiratory: normal respiratory effort, lungs clear to auscultation Cardiovascular: RRR, no murmur, no edema Chest (Breasts): Chest: normal inspection of chest Gastrointestinal (Abdomen): Inspection/Auscultation: normal bowel sounds; + abdomen abnormal to inspection (Scar in the periumbilical region from previous hernia repair) and abdomen not distended Percussion/Palpation: + abdomen tender (In right lower quadrant into right flank), abdomen soft and + hernia (Supraumbilical small hernia reducible); no guarding, abdomen not rigid and no hepatosplenomegaly Musculoskeletal: Extremities: extremities normal to inspection; no cyanosis and no clubbing Skin: + rash (Left foot especially plantar surface with large crevices with some scabs ) Neurologic: moves all extremities and awake; no focal motor deficits Psychiatric: A+Ox3, euthymic affect Lymphatic: no lymphedema Results & Data Vital Signs (Past 12 Hours) Vital Signs Temp Pulse Pulse Resp BP Pulse Ox 05/03/19 17:40 36.4 C L 82 16 136/78 95 05/03/19 16:40 36.3 C L 81 16 132/77 96 05/03/19 16:10 36.4 C L 83 20 146/80 H 95 05/03/19 15:40 36.5 C 16 147/85 H 97 05/03/19 15:30 36.6 C 79 15 137/87 97 05/03/19 15:20 36.6 C 87 15 132/88 96 05/03/19 15:10 69 19 141/93 H 100 05/03/19 15:00 86 14 144/53 H 100 05/03/19 14:51 36.8 C 99 H 14 154/90 H 95 Laboratory Results 05/03/19 05/03/19 05/03/19 Range/Units 18:08 15:15 12:06 WBC (4.8-10.8) K/uL RBC (4.7-6.1) M/uL Hgb (14.0-18.0) g/dL Hct (42-52) % MCV (80-100) fL MCH (25-34) pg MCHC (32-36) g/dL RDW Std Deviation (36.4-46.3) fL RDW Coeff of Sheldon (11.5-14.5) % Plt Count (130-400) K/uL MPV (7.4-10.4) fL Immature Gran % (Auto) % Neut % (Auto) % Lymph % (Auto) % [place] % (Auto) % Eos % (Auto) % Baso % (Auto) % Immature Gran # (Auto) (0.00-0.02) K/uL Neut # (Auto) (1.4-6.5) K/uL Lymph # (Auto) (1.2-3.4) K/uL [place] # (Auto) (0.11-0.59) K/uL Eos # (Auto) (0-0.5) K/uL Baso # (Auto) (0-0.2) K/uL Sodium (136-145) mmol/L Potassium (3.5-5.1) mmol/L Chloride (98-107) mmol/L Carbon Dioxide (21-32) mmol/L Anion Gap (3-11) BUN (7-18) mg/dl Creatinine (0.6-1.4) mg/dl Est Cr Clr Drug Dosing ml/min Est GFR ( Amer) Est GFR (Non-Af Amer) BUN/Creatinine Ratio (10-20) Glucose (70-99) mg/dl POC Glucose 112 H 114 H 102 H (70-99) mg/dl Estimat Average Glucose Hemoglobin A1c Calcium (8.5-10.1) mg/dl 05/03/19 05/03/19 05/03/19 Range/Units 06:08 05:42 05:42 WBC (4.8-10.8) K/uL RBC (4.7-6.1) M/uL Hgb (14.0-18.0) g/dL Hct (42-52) % MCV (80-100) fL MCH (25-34) pg MCHC (32-36) g/dL RDW Std Deviation (36.4-46.3) fL RDW Coeff of Sheldon (11.5-14.5) % Plt Count (130-400) K/uL MPV (7.4-10.4) fL Immature Gran % (Auto) % Neut % (Auto) % Lymph % (Auto) % [place] % (Auto) % Eos % (Auto) % Baso % (Auto) % Immature Gran # (Auto) (0.00-0.02) K/uL Neut # (Auto) (1.4-6.5) K/uL Lymph # (Auto) (1.2-3.4) K/uL [place] # (Auto) (0.11-0.59) K/uL Eos # (Auto) (0-0.5) K/uL Baso # (Auto) (0-0.2) K/uL Sodium 140 D (136-145) mmol/L Potassium 4.5 (3.5-5.1) mmol/L Chloride 108 H (98-107) mmol/L Carbon Dioxide 28 (21-32) mmol/L Anion Gap 3.0 (3-11) BUN 20 H (7-18) mg/dl Creatinine 1.31 (0.6-1.4) mg/dl Est Cr Clr Drug Dosing 84.0 ml/min Est GFR ( Amer) 74.1 Est GFR (Non-Af Amer) 63.9 BUN/Creatinine Ratio 14.9 (10-20) Glucose 117 H (70-99) mg/dl POC Glucose 102 H (70-99) mg/dl Estimat Average Glucose Pending Hemoglobin A1c Pending Calcium 8.6 (8.5-10.1) mg/dl 05/03/19 05/03/19 Range/Units 05:42 00:00 WBC 7.89 (4.8-10.8) K/uL RBC 4.17 L (4.7-6.1) M/uL Hgb 12.2 L D (14.0-18.0) g/dL Hct 37.0 L (42-52) % MCV 88.7 (80-100) fL MCH 29.3 (25-34) pg MCHC 33.0 (32-36) g/dL RDW Std Deviation 39.7 (36.4-46.3) fL RDW Coeff of Sheldon 12.4 (11.5-14.5) % Plt Count 162 (130-400) K/uL MPV 9.7 (7.4-10.4) fL Immature Gran % (Auto) 0.3 % Neut % (Auto) 62.9 % Lymph % (Auto) 21.4 % [place] % (Auto) 11.4 % Eos % (Auto) 3.7 % Baso % (Auto) 0.3 % Immature Gran # (Auto) 0.02 (0.00-0.02) K/uL Neut # (Auto) 4.97 (1.4-6.5) K/uL Lymph # (Auto) 1.69 (1.2-3.4) K/uL [place] # (Auto) 0.90 H (0.11-0.59) K/uL Eos # (Auto) 0.29 (0-0.5) K/uL Baso # (Auto) 0.02 (0-0.2) K/uL Sodium (136-145) mmol/L Potassium (3.5-5.1) mmol/L Chloride (98-107) mmol/L Carbon Dioxide (21-32) mmol/L Anion Gap (3-11) BUN (7-18) mg/dl Creatinine (0.6-1.4) mg/dl Est Cr Clr Drug Dosing ml/min Est GFR ( Amer) Est GFR (Non-Af Amer) BUN/Creatinine Ratio (10-20) Glucose (70-99) mg/dl POC Glucose 114 H (70-99) mg/dl Estimat Average Glucose Hemoglobin A1c Calcium (8.5-10.1) mg/dl PG Care Time/CCT Total # of Minutes Spent Total Time Spent with Patient: Total time spent is greater than 50% in coordination of care (as documented) at patient's floor/unit and/or counseling patient:
[2019-05-04] MEDS: KETOROLAC 30 MG/ML VIAL IV PRN (00:49)
[2019-05-04 05:38] LABS: Basophils # (auto) 0.02 K/uL (0-0.2); Basophils % (auto) 0.2 %; Eosinophils % (auto) 2.3 %; Hematocrit (blood only) 36.2 % (42-52); Hemoglobin 12.3 g/dL (14.0-18.0); Immature Granulocytes # (auto) 0.02 K/uL (0.00-0.02); Immature Granulocytes % (auto) 0.2 %; Lymphocytes # (auto) 0.91 K/uL (1.2-3.4); Lymphocytes % (auto) 10.4 %; Mean Corpuscular Volume 88.3 fL (80-100); Mean Platelet Volume 9.9 fL (7.4-10.4); Monocytes # (auto) 1.02 K/uL (0.11-0.59); Monocytes % (auto) 11.6 %; Neutrophils # (auto) 6.62 K/uL (1.4-6.5); Neutrophils % (auto) 75.3 %; Platelet Count 160 K/uL (130-400); RDW Coefficient of Variation 12.1 % (11.5-14.5); RDW Standard Deviation 38.7 fL (36.4-46.3); White Blood Count 8.79 K/uL (4.8-10.8)
[2019-05-04] MEDS: SODIUM CHLORIDE 0.9% 1000ML 1,000 ML IV SCH ×4 (05:54→22:59)
[2019-05-04 06:09] LABS: BUN Creatinine Ratio 13.6 (10-20); Calcium 8.6 mg/dl (8.5-10.1); Creatinine Clr Calc Pharmacy 82.1 ml/min; Est GFR (African American) 72.1; Est GFR (Non-African American) 62.2; Potassium 4.2 mmol/L (3.5-5.1)
[2019-05-04 07:02] LABS: Estimated Average Glucose 163 mg/dl; Hemoglobin A1C 7.3 % (4.5-5.6)
[2019-05-04] MEDS ORDERED: ACETAMINOPHEN 325 MG TAB PO PRN (07:55)
--- NOTE | 2019-05-04 08:01 | Anesthesiology Progress Note ---
Date of Service May 04, 2019 Anesthesia Post Procedure Vital Signs Vital Signs: Temp Pulse Pulse Resp BP BP Pulse Ox 05/04/19 07:37 38.2 C H 104 H 16 129/80 94 05/04/19 02:47 37.2 C 101 H 16 135/69 95 05/04/19 00:52 36.7 C 05/03/19 23:15 37.2 C 83 16 136/84 96 05/03/19 17:40 36.4 C L 82 16 136/78 95 05/03/19 16:40 36.3 C L 81 16 132/77 96 05/03/19 16:10 36.4 C L 83 20 146/80 H 95 05/03/19 15:40 36.5 C 16 147/85 H 97 05/03/19 15:30 36.6 C 79 15 137/87 97 05/03/19 15:20 36.6 C 87 15 132/88 96 05/03/19 15:10 69 19 141/93 H 100 05/03/19 15:00 86 14 144/53 H 100 05/03/19 14:51 36.8 C 99 H 14 154/90 H 95 Pain Intensity Right Abdomen: Pain Intensity: 3 Notes Mental Status: alert / awake / arousable and participated in evaluation Nausea / Vomiting: adequately controlled Pain: adequately controlled Airway Patency, RR, SpO2: stable & adequate BP & HR: stable & adequate Hydration State: stable & adequate
[2019-05-04] MEDS: ATORVASTATIN 10 MG TAB PO SCH (08:22)
[2019-05-04] MEDS: TAMSULOSIN HCL 0.4 MG CAP PO SCH (08:22)
[2019-05-04] MEDS: ECONAZOLE NITRATE 1% CRM 15 GM TUBE TOP SCH ×2 (08:22→20:45)
[2019-05-04 08:51] LABS: Appearance Urine Cloudy (Clear); Bilirubin Urine Negative (Negative); Blood Urine 3+ (Negative); Color Urine Yellow; Glucose Urine UA Trace (Negative); Ketones Urine 1+ (Negative); Leukocyte Esterase Urine 2+ (Negative); Nitrite Urine Negative (Negative); Protein Urine 1+ (Negative); RBC Urine Automated >30 /hpf (0-4); Specific Gravity Urine 1.015 (1.000-1.030); Urobilinogen Urine Negative (Negative)
[2019-05-04] MEDS ORDERED: AMOXICILLIN 500 MG CAP PO SCH (09:00)
[2019-05-04 09:26] LABS: Bacteria Urine Automated 1+ (Negative)
[2019-05-04] MEDS: INSULIN ASPART 100 UNITS/ML 3 ML PEN SC SCH ×4 (09:29→20:49)
--- NOTE | 2019-05-04 09:46 | Urology Progress Note ---
Date of Service May 04, 2019 Assessment & Plan (1) Calculus of proximal right ureter: 48yo M PPOD #1 s/p cysto, Right URS, LL, stent placement. Stent irritation as anticipated. Continue IVFs. Fevers overnight, trending down. Slightly tachycardic. UC&S pending. Discussed with Dr. Ernandez, plan to repeat UC&S and BCx. Plan to observe today and await cultures. Plan to treat based upon culture results for 10-14 days for complicated UTI. RTO in 2 weeks for cysto, stent removal. Thank you for allowing us to participate in the acute care of Mr. Hall. Please reconsult us with additional questions, concerns or changes in patient status. Subjective 48yo M POD #1 s/p cysto, URS, Right laser litho, ureteral stent placement. Pt is doing well. Acknowledges hematuria, urgency/frequency as anticipated. Stent pain is tolerable, noted mostly in right groin. Denies n/v. Reported episode of rigors, and fever last evening which broke spontaneously. Tmax 38.2C this AM, trending down to 37.7F. UA with some epis, +1 bacteria, +WBC. UC&S pending. Tolerating PO well. Review of Systems Review of Systems: All systems reviewed & are unremarkable except as noted in HPI & below Physical Exam Physical Exam: A&Ox3 Resp rate reg abd soft, nontender Mild blood spots on gown no LE edema Results & Data Vital Signs (Past 12 Hours) Vital Signs Temp Pulse Resp BP Pulse Ox 05/04/19 09:04 37.7 C H 05/04/19 07:37 38.2 C H 104 H 16 129/80 94 05/04/19 02:47 37.2 C 101 H 16 135/69 95 05/04/19 00:52 36.7 C 05/03/19 23:15 37.2 C 83 16 136/84 96 PG Care Time/CCT Total # of Minutes Spent Total Time Spent with Patient: Total time spent is greater than 50% in coordination of care (as documented) at patient's floor/unit and/or counseling patient:
[2019-05-04] MEDS: cefTRIAXone SODIUM 2,000 MG in DEXTROSE 5% 50 ML IV SCH (16:42)
--- NOTE | 2019-05-04 22:57 | Hospitalist Progress Note ---
Date of Service May 04, 2019 Assessment & Plan (1) Fever: Given ongoing chills. Suspect this represents complicated UTI in setting of recent lithotripsy. Blood and urine cultures taken. Patient will be started on ceftriaxone as discussed with urology. (2) Calculus of proximal right ureter: 6 mm obstructing stone at the UPJ Resulting in moderate hydronephrosis, ADRI. POD #1 s/p lithotripsy and stent placement Continue tamsulosin Appreciate urology ongoing management. (3) Hydronephrosis of right kidney: Secondary to ureterolithiasis as above-should resolve now with stent placement (4) ADRI (acute kidney injury): Post obstructive ADRI. Will continue on IVF as Cr not yet back to baseline. Continue to hold home lisinopril and metformin Strain urine (5) Type 2 diabetes mellitus: Continue to hold home metformin and Trulicity HBA1C 7.3 -BSG well controlled on correction and carb coverage insulin. However better to have basal dosing, therefore will d/c carb coverage and give lantus 10 units daily. (6) Tinea pedis: Continue antifungal cream to feet -Recommend he see a night monitor as an outpatient for deep crevices in the foot in the setting of having diabetes as well as onychomycosis (7) Vitiligo: Chronic and stable He has been checked for thyroid disease and this is been normal so far (8) Recurrent cellulitis: Has a history of multiple episodes of left leg cellulitis requiring hospitalization in the past Follows with infectious disease and is on chronic amoxicillin for suppression -Holding amoxicillin while on UTI antibiotics. (9) Obese: BMI 33 -Needs weight loss counseling (10) Hypertension: Blood pressures here are stable -Holding home lisinopril for acute kidney injury as above (11) Hypercholesterolemia: Stable -Holding home atorvastatin while n.p.o.-can restart in the morning if tolerating diet (12) Nausea & vomiting: Secondary to severe pain and ureterolithiasis -Now controlled with IV Zofran and relief of pain and obstruction with stone -Continue Zofran as needed -Continue pain control (13) Lipoma of stomach: Incidentally noted on CT scan of the abdomen/pelvis-noted to be slightly larger than previous -Follow-up with PCP (14) Renal cyst: Noted bilateral cysts on kidneys on CT abdomen/pelvis -Urology evaluation appreciated -Follow with urology as an outpatient (15) Splenomegaly: Spleen noted to be mildly enlarged at 14.[address] abdomen/pelvis Unclear how long this has been going on, perhaps is related to fatty liver? -Follow-up with PCP as an outpatient (16) Fatty liver: Noted incidentally on CT of the abdomen/pelvis -Advised weight loss and low carbohydrate diet -Should follow-up with PCP and/or gastroenterology as an outpatient Discussed with patient and his risk of progression to cirrhosis and liver failure if left untreated or worsens (17) DVT prophylaxis: SCDs Disposition-continued stay on medical floor, likely discharge to home on Saturday if has adequate pain control, will need follow-up with urology Full code Subjective Chills overnight and measured fever this morning. Patient continues to have chills throughout the day. Otherwise pain much improved but having some hematuria and dusuria as expected. No real issues keeping up with oral intake at this time. Discussed chronic use of amoxicillin for x2 episodes of cellulitis. Review of Systems Review of Systems: All systems reviewed & are unremarkable except as noted in HPI & below Physical Exam Constitutional: WD/WN, vitals as above + obese Eyes: + anicteric sclerae; normal pupil size ENMT: external ear and nose normal, oropharynx normal Neck: trachea midline, no thyromegaly Respiratory: normal respiratory effort, lungs clear to auscultation Cardiovascular: RRR, no murmur, no edema Gastrointestinal (Abdomen): normal bowel sounds, soft, nontender, no hepatosplenomegaly Musculoskeletal: no cyanosis or clubbing, extremities motor strength 5/5 Skin: no rashes, warm and dry Neurologic: moves all extremities and awake; no focal motor deficits and not confused Speech / Cognition: normal speech Motor/Sensory: no tremor Psychiatric: A+Ox3, euthymic affect Genitourinary: + CVA tenderness (right) Results & Data Vital Signs (Past 12 Hours) Vital Signs Temp Pulse Resp BP Pulse Ox 05/04/19 15:42 36.6 C 88 16 149/80 H 98 05/04/19 11:37 37.1 C 94 H 16 126/81 96 PG Care Time/CCT Total # of Minutes Spent Total Time Spent with Patient: Total time spent is greater than 50% in coordination of care (as documented) at patient's floor/unit and/or counseling patient: (1) Type 2 diabetes mellitus Diabetes mellitus nursing home insulin use: without intermission coordinator use Diabetes mellitus complication status: with hyperglycemia Qualified Code(s): E11.65 - Type 2 diabetes mellitus with hyperglycemia (2) Fever Fever type: unspecified Qualified Code(s): R50.9 - Fever, unspecified
[2019-05-05 05:15] LABS: Hematocrit (blood only) 35.7 % (42-52); Hemoglobin 12.4 g/dL (14.0-18.0); Mean Corpuscular Hemoglobin 30.9 pg (25-34); Mean Corpuscular Hgb Conc 34.7 g/dL (32-36); Mean Platelet Volume 9.9 fL (7.4-10.4); Platelet Count 157 K/uL (130-400); RDW Coefficient of Variation 12.2 % (11.5-14.5); RDW Standard Deviation 39.4 fL (36.4-46.3); Red Blood Count 4.01 M/uL (4.7-6.1); White Blood Count 8.17 K/uL (4.8-10.8)
[2019-05-05 05:34] LABS: BUN Creatinine Ratio 11.3 (10-20); Calcium 8.7 mg/dl (8.5-10.1); Creatinine Clr Calc Pharmacy 97.4 ml/min; Est GFR (African American) 88.6; Est GFR (Non-African American) 76.4; Potassium 4.2 mmol/L (3.5-5.1)
[2019-05-05] MEDS: SODIUM CHLORIDE 0.9% 1000ML 1,000 ML IV SCH (07:05)
[2019-05-05] MEDS: INSULIN ASPART 100 UNITS/ML 3 ML PEN SC SCH ×4 (08:13→20:49)
[2019-05-05] MEDS: TAMSULOSIN HCL 0.4 MG CAP PO SCH (08:18)
[2019-05-05] MEDS: ATORVASTATIN 10 MG TAB PO SCH (08:18)
[2019-05-05] MEDS: INSULIN GLARGINE SOLOSTAR 100 UNITS/ML 3 ML PEN SC SCH (08:57)
[2019-05-05] MEDS: ECONAZOLE NITRATE 1% CRM 15 GM TUBE TOP SCH ×2 (14:52→21:09)
[2019-05-05] MEDS: cefTRIAXone SODIUM 2,000 MG in DEXTROSE 5% 50 ML IV SCH (15:48)
--- NOTE | 2019-05-05 22:01 | Hospitalist Progress Note ---
Date of Service May 05, 2019 Assessment & Plan (1) Fever: Suspected complicated UTI however urine culture currently negative to date. Possible explanation for negative culture would be partically treated with antibiotics given during lithotripsy. Given ongoing chills will keep overnight to await 48 hour culture results. Given chronic amoxicillin use he may have a resistant organism. Continue on ceftriaxone awaiting culture results. (2) Calculus of proximal right ureter: 6 mm obstructing stone at the UPJ Resulting in moderate hydronephrosis, ADRI. POD #1 s/p lithotripsy and stent placement Continue tamsulosin Appreciate urology ongoing management. (3) Hydronephrosis of right kidney: Secondary to ureterolithiasis as above-should resolve now with stent placement (4) ADRI (acute kidney injury): Post obstructive ADRI. Will continue on IVF as Cr not yet back to baseline. Continue to hold home lisinopril and metformin Strain urine (5) Type 2 diabetes mellitus: Continue to hold home metformin and Trulicity HBA1C 7.3 -BSG well controlled on correction and carb coverage insulin. However better to have basal dosing, therefore will d/c carb coverage and give lantus 10 units daily. (6) Tinea pedis: Continue antifungal cream to feet -Recommend he see a tool crib clerk as an outpatient for deep crevices in the foot in the setting of having diabetes as well as onychomycosis (7) Vitiligo: Chronic and stable He has been checked for thyroid disease and this is been normal so far (8) Recurrent cellulitis: Has a history of multiple episodes of left leg cellulitis requiring hospi talization in the past Follows with infectious disease and is on chronic amoxicillin for suppression -Holding amoxicillin while on UTI antibiotics. (9) Obese: BMI 33 -Needs weight loss counseling (10) Hypertension: Blood pressures here are stable -Holding home lisinopril for acute kidney injury as above (11) Hypercholesterolemia: Stable -Holding home atorvastatin while n.p.o.-can restart in the morning if tolerating diet (12) Nausea & vomiting: Secondary to severe pain and ureterolithiasis -Now controlled with IV Zofran and relief of pain and obstruction with stone -Continue Zofran as needed -Continue pain control (13) Lipoma of stomach: Incidentally noted on CT scan of the abdomen/pelvis-noted to be slightly larger than previous -Follow-up with PCP (14) Renal cyst: Noted bilateral cysts on kidneys on CT abdomen/pelvis -Urology evaluation appreciated -Follow with urology as an outpatient (15) Splenomegaly: Spleen noted to be mildly enlarged at 14.[address] abdomen/pelvis Unclear how long this has been going on, perhaps is related to fatty liver? -Follow-up with PCP as an outpatient (16) Fatty liver: Noted incidentally on CT of the abdomen/pelvis -Advised weight loss and low carbohydrate diet -Should follow-up with PCP and/or gastroenterology as an outpatient Discussed with patient and his risk of progression to cirrhosis and liver failure if left untreated or worsens (17) DVT prophylaxis: SCDs Disposition-continued stay on medical floor, likely discharge to home on Saturday if has adequate pain control, will need follow-up with urology Full code Subjective No objective fevers but ongoing chills overnight. Dysuria improving. Results & Data Vital Signs (Past 12 Hours) Vital Signs Temp Pulse Resp BP Pulse Ox 05/05/19 15:05 36.9 C 76 18 133/80 97 PG Care Time/CCT Total # of Minutes Spent Total Time Spent with Patient: Total time spent is greater than 50% in coordination of care (as documented) at patient's floor/unit and/or counseling patient: (1) Fever Fever type: unspecified Qualified Code(s): R50.9 - Fever, unspecified (2) Type 2 diabetes mellitus Diabetes mellitus meterman insulin use: without meterman use Diabetes mellitus complication status: with hyperglycemia Qualified Code(s): E11.65 - T ype 2 diabetes mellitus with hyperglycemia
[2019-05-06] MEDS: INSULIN GLARGINE SOLOSTAR 100 UNITS/ML 3 ML PEN SC SCH (09:02)
[2019-05-06] MEDS: TAMSULOSIN HCL 0.4 MG CAP PO SCH (09:02)
[2019-05-06] MEDS: ATORVASTATIN 10 MG TAB PO SCH (09:02)
[2019-05-06] MEDS: INSULIN ASPART 100 UNITS/ML 3 ML PEN SC SCH ×2 (09:04→13:25)
[2019-05-06] MEDS: ECONAZOLE NITRATE 1% CRM 15 GM TUBE TOP SCH (09:04)
--- NOTE | 2019-05-06 13:29 | Discharge Summary ---
Date of Service May 06, 2019 Admission HPI Per Admitting Provider This patient is a 48-year-old male with a history of DM 2, HTN, HL, recurrent left leg cellulitis, vitiligo, and childhood asthma, who presents to the ER with severe constant right lower quadrant and right flank pain since 930 last evening. The pain was 10/10 in severity, nonradiating, and associated with sweats and nausea and vomiting x2 of nonbloody emesis. He denies hematuria or urgency. He tried taking Imodium at home as he thought maybe he was getting diarrhea. His last bowel movement was yesterday. He denies fevers at home. No chest pain or shortness of breath, no lightheadedness. He has never had a kidney stone before. He was found to have a 6 mm right proximal ureteral kidney stone with moderate hydronephrosis. His urinalysis was without evidence of infection. He was mildly tachycardic likely secondary to dehydration, but afebrile in the ER. He was given IV Dilaudid and then did have some respiratory depression that was mild requiring 2 L nasal cannula for oxygenation. He will be admitted for ureterolithiasis with urinary obstruction with moderate hydronephrosis and acute kidney injury. Admission Exam Per Admitting Provider Constitutional: WD/WN, vitals as above + obese Eyes: PERRL, conjunctivae normal, anicteric sclerae ENMT: external ear and nose normal, oropharynx normal (With high palate) Neck: trachea midline, no thyromegaly Respiratory: normal respiratory effort, lungs clear to auscultation Cardiovascular: RRR, no murmur, no edema Chest (Breasts): Chest: normal inspection of chest Gastrointestinal (Abdomen): Inspection/Auscultation: normal bowel sounds; + abdomen abnormal to inspection (Scar in the periumbilical region from previous hernia repair) and abdomen not distended Percussion/Palpation: + abdomen tender (In right lower quadrant into right flank) and abdomen soft; no guarding, abdomen not rigid, no hepatosplenomegaly and no hernia No CVA tenderness Musculoskeletal: Extremities: extremities normal to inspection; no cyanosis and no clubbing Skin: + rash (Left foot especially plantar surface with large crevices with some scabs ) Neurologic: moves all extremities and awake; no focal motor deficits Psychiatric: A+Ox3, euthymic affect Lymphatic: no lymphedema Principal Diagnosis Right Obstructing Ureterolithiasis (kidney stone obstructing right proximal ureter) Right Hydronephrosis (urine back up to your right kidney due to obstructing stone) Acute kidney injury Tinea pedis Discharge Exam Constitutional WD/WN, vitals as above Eyes + anicteric sclerae; normal pupil size ENMT external ear and nose normal, oropharynx normal Respiratory normal respiratory effort, lungs clear to auscultation Cardiovascular RRR, no murmur, no edema Gastrointestinal (Abdomen) normal bowel sounds, soft, nontender, no hepatosplenomegaly Musculoskeletal no cyanosis or clubbing, extremities motor strength 5/5 Skin no rashes, warm and dry Neurologic moves all extremities and awake; no focal motor deficits and not confused Psychiatric A+Ox3, euthymic affect Genitourinary + CVA tenderness (right, improving) Discharge Data Allergies Allergy/AdvReac Type Severity Reaction Status Date / Time No Known Allergies Allergy Unverified 05/02/19 04:39 Consultations 05/02/19 06:24 ED Decision to Admit Stat 05/02/19 08:40 Consult Urology Routine Procedures Performed Operation Date: 05/03/19 14:00 Actual Procedures s Stent Insertion(Right) - Alejandro Rodriguez DO p Cystoscopy, Right Ureteroscopy, Ureteral Dilation, Laser Lithotripsy, Retrograde Pyelogram,(Right) - Alejandro Rodriguez DO Ordered Studies 05/02/19 04:46 CT abd pelvis IV con only Urgent 05/03/19 [place] retrograde includes kub Routine Hospital Course (1) Fever: You were admitted to [facility] from May 02 to 2019 due to right flank pain, associated nausea, vomiting and sweating. You were diagnosed with an obstructing right kidney stone stuck in the proximal ureter. For this you were treated with intravenous fluids, pain medication and underwent surgery by Dr Rodriguez on May 03. This surgery was a cystoscopy, Right Ureteroscopy, Ureteral Dilation Laser Lithotripsy and ureteral stent inse rtion. You discharge was delayed due to post operative fever and chills. However subsequent urine and blood cultures were negative therefore antibiotics have been discontinued. If you have a fever > 100.4 degrees Fahrenheit please call your urologist on the number above. In an emergency return to the ER. Stone analysis is pending at this time and you will follow up with urology for the results of this (please call number above if you do not get a call about an appointment after 2 working days). You have been started on tamsulosin to aid continued passage of stones. Please continue this until advised to stop by your urologist. (2) Calculus of proximal right ureter: (3) Hydronephrosis of right kidney: (4) ADRI (acute kidney injury): (5) Tinea pedis: (6) Type 2 diabetes mellitus: (7) Vitiligo: (8) Recurrent cellulitis: (9) Obese: (10) Hypertension: (11) Hypercholesterolemia: (12) Lipoma of stomach: (13) Renal cyst: (14) Splenomegaly: (15) Fatty liver: Discharge Plan Discharge Items Patient Disposition: Home - Self-Care Reason For Visit: URETEROLITHIASIS,HYDRONEPHROSIS Discharge Diagnosis: Right Obstructing Ureterolithiasis (kidney stone obstructing right proximal ureter) Right Hydronephrosis (urine back up to your right kidney due to obstructing stone) Acute kidney injury Tinea pedis Incidental findings of splenomegaly, fatty liver disease, stomach lipoma and renal cysts Condition on Discharge: Good Activity: Resume your previous activity Non-emergency contact: Urologist Call non-emergency contact if: you have a fever and your temperature is above 101.5 Follow-up/Referrals: Charlie Camarillo III, CRNP [Primary Care Provider] - 05/11/19 9:15 am (Please, follow up with Charlie CYR on SaturdayMay 11 at 9:15 am. *If you need to change this appointment, call the office at [phone].) Alejandro Rodriguez, [Physician] - (Please, follow up at [facility] Urology Office with Dr. Rodriguez. *A nurse from this office will contact you with the appointment information. The office is located at [address] [place] [address] in [place]. If you have any questions, call the office at [phone].) Diet: Carb Consistent or DM2 Addtl Attending Provider Instructions: You were admitted to [facility] from May 02 to 2019 due to right flank pain, associated nausea, vomiting and sweating. You were donya gnosed with an obstructing right kidney stone stuck in the proximal ureter. For this you were treated with intravenous fluids, pain medication and underwent surgery by Dr Rodriguez on May 03. This surgery was a cystoscopy, Right Ureteroscopy, Ureteral Dilation Laser Lithotripsy and ureteral stent insertion. You discharge was delayed due to post operative fever and chills. However subsequent urine and blood cultures were negative therefore antibiotics have been discontinued. If you have a fever > 100.4 degrees Fahrenheit please call your urologist on the number above. In an emergency return to the ER. Stone analysis is pending at this time and you will follow up with urology for the results of this (please call number above if you do not get a call about an appointment after 2 working days). You have been started on tamsulosin to aid continued passage of stones. Please continue this until advised to stop by your urologist. Please follow up with you PCP regarding tinea pedis (foot fungal infection; consider podiatry referral) and incidental findings on CT including splenomegaly, fatty liver disease, stomach lipoma and renal cysts. Pending Studies at Discharge: Yes (stone analysis) Stand-Alone Forms: My [facility] surespot, Smoking Cessation Medications and DC Order Prescriptions: New tamsulosin 0.4 mg Capsule 0.4 mg PO QAM 30 Days Qty: 30 RF: 0 Continued metformin 1,000 mg tablet 1,000 mg PO BID Qty: 60 RF: 0 Trulicity 1.5 mg/0.5 mL pen injector See Rx Instructions SQ WEEKLY Qty: 2 RF: 5 amoxicillin 500 mg capsule 500 mg PO BID Qty: 60 RF: 3 atorvastatin 10 mg tablet 10 mg PO DAILY Qty: 90 RF: 0 lisinopril 10 mg tablet 10 mg PO DAILY Qty: 90 RF: 0 econazole 1 % cream 1 appln topical BID 28 Days Qty: 30 RF: 1 fish oil-dha-epa 1,200-144-216 mg Capsule 3 cap PO RF: 0 Probiotic 3 billion cell Capsule 3,000 mmu cells PO DAILY RF: 0 Admission Data Admit Date/Time: 05/02/19 07:55 Attending Provider: Taqueria Ernandez Admit Provider: Payton Tanner Primary Care Provider: Charlie Camarillo III Other Providers: Konrad Whitman ; Alejandro Rodriguez
== END 2019-05-06 14:38 | disposition home or self-care (01) | DRG 660 ==
LOC: ED 04:14 → 3W 07:55 → SUATTDRO 07:55 → 3W 08:21

== ENCOUNTER 2022-01-25 08:18 | Observation (INO) ==
--- NOTE | 2022-01-25 08:54 | Emergency Department Note ---
History of Present Illness General Chief complaint: Flank Pain Stated complaint: POSSSIBLE KIDNEY STONE, FLANK PAIN Time Seen by Provider: 01/25/22 08:48 History of Present Illness Maximum Pain Intensity: 8 This is a 51-year-old male that presents to the emergency department via private vehicle with complaints of "possible kidney stone, left flank pain". The patient notes that he is abruptly awoken this morning around 3 AM with left- sided flank pain. No known trauma or injury. He notes a history of kidney stones but on the right. This feels more intense than previous. No fevers but he does feel warm. No chills. No chest pain. No shortness of breath. He notes a history of type 2 diabetes, no insulin. No known drug allergies. No dysuria. Pain is constant without any alleviating or aggravating factors. Current pain 11/22. Home Medications Medication Instructions Recorded Confirmed Type econazole 1 % topical cream 1 applic topical BID PRN ATHLETES 11/10/20 01/25/22 History FOOT amoxicillin 500 mg capsule 500 mg PO BID #180 caps 11/15/20 01/25/22 Rx lisinopril 10 mg tablet 10 mg PO QAM #90 tabs 08/09/21 01/25/22 Rx atorvastatin 10 mg tablet 10 mg PO DAILY #90 tabs 11/16/21 01/25/22 Rx metformin 1,000 mg tablet 1,000 mg PO BID #180 tabs 01/24/22 01/25/22 Rx dulaglutide 3 mg/0.5 mL 3 mg subcut WK 01/25/22 01/25/22 History subcutaneous pen injector Allergies Allergy/AdvReac Type Severity Reaction Status Date / Time No Known Allergies Allergy Verified 01/25/22 10:54 Past Med/Surg History Medical History Dysmetabolic syndrome X Fatty liver History of anesthesia reaction "ANESTHESIA NOT WORKING FOR HAND SURGERY, COULD FEEL EVERYTHING" History of COVID-19 11/2020>STILL HAS SOME LOSS OF SMELL. 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) History of tonsillectomy and adenoidectomy History of wisdom tooth extraction Family History Mother Diabetes Valvular heart disease Family history of diabetes mellitus Grandfather Prostate cancer Father Heart disease Metabolic syndrome Thyroid disease Family history of diabetes mellitus Sister Thyroid disease Denies family history of Ovarian cancer Myocardial infarction Breast cancer Colorectal cancer Social History Smoking Status: Never smoker Second Hand Exposure: No; Do You Dip or Chew Tobacco: No; Hx Alcohol Use: Yes Alcohol type: beer Hx Substance Use: No Preferred Language: Bengali 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 Ability: Effective Visual Impairment: No Limitations Hearing Ability: Normal Field Service Analyst Required: No Beliefs That Will Affect Care: None marital status: Current Living Situation: Family Current Living Situation Comment: Home with spouse, 10 yr old son, cat, and dog current occupational status: employed 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 [employer] Other Information That Helps Us Care for You: No Feels Safe at Home: Yes Safety Concerns: Feels Safe At This Time Dental Care, Regularly: Yes Physical Activity Frequency: 1-2 Times per Week Seatbelt Use: always Assistive Devices: None Review of Systems A total of 10 systems reviewed and were otherwise negative Physical Exam Vital Signs Vital Signs - 24 hr 01/25/22 10:55 01/25/22 10:30 01/25/22 11:00 Pulse Rate 92 H 92 H Pulse Rate from SpO2 Sensor 92 H 90 Respiratory Rate 16 17 Pulse Oximetry 90 94 Oxygen Delivery Method Room Air 01/25/22 11:30 Pulse Rate 88 Pulse Rate from SpO2 Sensor 86 Respiratory Rate 15 Pulse Oximetry 96 Oxygen Delivery Method VITAL SIGNS - Vital signs and nursing notes were reviewed. Stable and afebrile. GENERAL -51-year-old male appearing his stated age who is in no acute distress. Communicates well with provider and answers questions appropriately. SKIN - Without rashes. No meningeal or petechial rash. HEAD - NC/AT. EYES - PERRL with EOMI bilaterally. Sclera anicteric. EARS - No deformities of external structures noted on gross examination bilaterally. NOSE - Midline and without cyanosis. No epistaxis or purulent drainage noted. S MOUTH/OROPHARYNX - Without perioral cyanosis. NECK - Neck with FROM. No nuchal rigidity. LUNGS - Chest wall symmetric without accessory muscle use, intercostals retractions, or central cyanosis. Normal vesicular breath sounds CTA B/L. No wheezes, rales, or rhonchi appreciated. CARDIAC - RRR with S1/S2. No murmur, rubs, or gallops appreciated. ABDOMEN - Abdominal contour normal without pulsations or visible masses. BS normoactive all four quadrants. Left-sided abdominal tenderness palpation. No guarding or rigidity. No palpable masses, hepatosplenomegaly, or ascites noted. EXTREMITIES - No clubbing or peripheral cyanosis. +5/5 strength noted in UE/LE bilaterally. NEUROLOGIC - Cranial nerves II through XII grossly intact. PSYCH - A&O, and cooperates fully with examiner. Pt is very pleasant and interacts well with examiner. Course Administered Medications Acetaminophen (Acetaminophen 325 Mg Tab) 650 mg PO Q4H PRN PRN Reason: pain/fever Stop: 02/24/22 13:29 Last Admin: 01/26/22 06:12 Dose: 650 mg Documented By: Admin: 01/25/22 21:27 Dose: 650 mg Documented By: ORVILLE Atorvastatin Calcium (Atorvastatin 10 Mg Tab) 10 mg PO DAILY [facility] Stop: 02/25/22 08:59 Last Admin: 01/26/22 08:50 Dose: 10 mg Documented By: ASIF Heparin Sodium (Porcine) (Heparin Sod 5,000 Unit/0.5 Ml Vial) 5,000 units SQ Q8H YAN Stop: 02/25/22 08:59 Last Admin: 01/26/22 08:45 Dose: 5,000 units Documented By: ASIF Insulin Aspart (Insulin Aspart Per Unit) 0 units SC ACHS YNA Stop: 02/24/22 13:29 Last Admin: 01/26/22 08:49 Dose: 5 units Documented By: ASIF Co-signed By: SREEDHAR Admin: 01/25/22 21:06 Dose: Not Given Documented By: Admin: 01/25/22 18:18 Dose: 1 units Documented By: ASIF Co-signed By: BETHANIE Admin: 01/25/22 15:40 Dose: Not Given Documented By: ASIF Insulin Glargine (Lantus Per Unit Charge) 9 units SQ BID YAN Stop: 02/24/22 20:59 Last Admin: 01/26/22 08:51 Dose: 9 units Documented By: ASIF Co-signed By: SREEDHAR Admin: 01/25/22 21:22 Dose: 9 units Documented By: ORVILLE Co-signed By: CML Discontinued Medications Diatrizoate Meglumine (Diatrizoate Meglumine 30% 100ml Vial) 100 ml INSTIL UD ONE Stop: 01/25/22 15:08 Last Admin: 01/25/22 15:41 Dose: 15 ml Documented By: [id number] Hydromorphone HCl (Hydromorphone Inj 1 Mg/Ml Syringe) 1 mg IV NOW STA Stop: 01/25/22 08:56 Last Admin: 01/25/22 09:35 Dose: 1 mg Documented By: ERNESTO Hydromorphone HCl (Hydromorphone Inj 0.5 Mg/0.5 Ml Syr) 0.5 mg IV NOW STA Stop: 01/25/22 10:55 Last Admin: 01/25/22 12:34 Dose: Not Given Documented By: ERNESTO Hydromorphone HCl (Hydromorphone Inj 0.5 Mg/0.5 Ml Syr) 0.5 mg IV ONE ONE Stop: 01/25/22 11:37 Last Admin: 01/25/22 12:19 Dose: 0.5 mg Documented By: LIMA Sodium Chloride (Nss 1000ml) 1,000 mls @ 999 mls/hr IV .Q1H1M YAN Stop: 01/25/22 10:00 Last Infusion: 01/25/22 10:35 Dose: 0 mls/hr Documented By: Admin: 01/25/22 09:30 Dose: 999 mls/hr Documented By: ERNESTO Acetaminophen (Ofirmev) 1,000 mg in 100 mls @ 400 mls/hr IV NOW STA Stop: 01/25/22 13:44 Last Infusion: 01/25/22 14:30 Dose: 0 mls/hr Documented By: Admin: 01/25/22 14:16 Dose: 400 mls/hr Documented By: ASIF Cefazolin Sodium (Ancef 2000mg) 2,000 mg in 15 mls @ 3.75 mls/min IV PREOP ONE Stop: 01/25/22 14:30 Last Admin: 01/25/22 15:18 Dose: 3.75 mls/min Documented By: [id number] Ondansetron HCl (Ondansetron Inj 2 Mg/Ml 2 Ml Vial) 4 mg IV NOW STA Stop: 01/25/22 08:56 Last Admin: 01/25/22 09:36 Dose: 4 mg Documented By: ERNESTO Medical Decision Making Laboratory Data Result diagrams: 01/26/22 05:42 01/26/22 05:46 Lab Results 01/25/22 01/25/22 01/25/22 Range/Units 09:24 09:24 10:37 WBC Cancelled 9.59 RBC Cancelled 4.69 Hgb Cancelled 14.1 POC Hgb (14.0-18.0) g/dl Hct Cancelled 40.9 POC Hct (42-52) % MCV Cancelled 87.2 MCH Cancelled 30.1 MCHC Cancelled 34.5 RDW Std Deviation Cancelled 38.3 RDW Coeff of Sheldon Cancelled 12.1 Plt Count Cancelled 158 MPV Cancelled 9.9 Immature Gran % (Auto) Cancelled 0.5 Neut % (Auto) Cancelled 78.9 Lymph % (Auto) Cancelled 10.5 Reeves % (Auto) Cancelled 8.3 Eos % (Auto) Cancelled 1.4 Baso % (Auto) Cancelled 0.4 Neut # (Auto) Cancelled 7.56 H Lymph # (Auto) Cancelled 1.01 L Reeves # (Auto) Cancelled 0.80 Eos # (Auto) Cancelled 0.13 Baso # (Auto) Cancelled 0.04 Immature Gran # (Auto) Cancelled 0.05 H Absolute Nucleated RBC Cancelled Nucleated RBC % (auto) Cancelled Neutrophils % (Manual) Cancelled Band Neutrophils % Cancelled Lymphocytes % (Manual) Cancelled Prolymphocyte % Cancelled Reactive Lymphs % (Man) Cancelled Monocytes % (Manual) Cancelled Eosinophils % (Manual) Cancelled Basophils % (Manual) Cancelled Metamyelocytes % (Man) Cancelled Myelocytes % (Man) Cancelled Promyelocytes % (Man) Cancelled Blast Cells % (Manual) Cancelled Plasma Cell % (Manual) Cancelled Other Cells % Cancelled Nucleated RBC % Cancelled Neutrophils # (Manual) Cancelled Band Neutrophils # Cancelled Total Absolute Neuts Cancelled Lymphocytes # (Manual) Cancelled Prolymphocyte # Cancelled Reactive Lymphs # Cancelled Total Abs Lymphocytes Cancelled Monocytes # (Manual) Cancelled Eosinophils # (Manual) Cancelled Basophils # (Manual) Cancelled Metamyelocytes # (Man) Cancelled Myelocytes # (Manual) Cancelled Promyelocytes # (Man) Cancelled Blast Cells # (Man) Cancelled Plasma Cell # (Manual) Cancelled Other Cells # Cancelled Nucleated RBCs # (Man) Cancelled Hypersegmented Neuts Cancelled Hyposegmented Neuts Cancelled Hypogranular Neuts Cancelled Large Granular Lymphs Cancelled # Lrg Granular Lymphs Cancelled Hairy Cells Cancelled Smudge Cells Cancelled Toxic Granulation Cancelled Toxic Vacuolation Cancelled Dohle Bodies Cancelled Qing Rods Cancelled Platelet Estimate Cancelled Hypogranular Platelets Cancelled Clumped Platelets Cancelled Giant Platelets Cancelled Platelet Satelliting Cancelled RBC Morphology Cancelled Polychromasia Cancelled Hypochromasia Cancelled Poikilocytosis Cancelled Basophilic Stippling Cancelled Anisocytosis Cancelled Microcytosis Cancelled Macrocytosis Cancelled Spherocytes Cancelled Pappenheimer Bodies Cancelled Sickle Cells Cancelled Target Cells Cancelled Tear Drop Cells Cancelled Ovalocytes Cancelled Stomatocytes Cancelled [place] Bodies Cancelled Echinocytes Cancelled Acanthocytes (Spur) Cancelled Rouleaux Cancelled RBC Agglutinates Cancelled Schistocytes Cancelled Sezary Cell Cancelled POC Sodium (135-144) mmol/L Sodium 136 (136-145) mmol/L POC Potassium (3.3-5.0) mmol/L Potassium 6.1 H* (3.5-5.1) mmol/L POC Chloride (101-112) mmol/L Chloride 103 (98-107) mmol/L Carbon Dioxide 24 (21-32) mmol/L POC Total CO2 (24-31) mmol/L Anion Gap 9 (3-11) POC Anion Gap (16-25) mmol/L POC BUN (7-18) mg/dl BUN 32 H (6-23) mg/dl Creatinine 1.81 H (0.6-1.4) mg/dl POC Creatinine (0.6-1.3) mg/dl Est Cr Clr Drug Dosing 59.9 ml/min Est GFR ( Amer) 49.1 ml/min Est GFR (Non-Af Amer) 42.3 ml/min BUN/Creatinine Ratio 17.7 (10-20) Glucose 140 H (70-99(Fasting)) mg/dl POC Glucose (other) (70-99) mg/dl Calcium 10.0 (8.5-10.1) mg/dl POC Ioniz Calcium Kaylyn (1.12-1.32) mmol/l Total Bilirubin 0.9 (0.2-1.0) mg/dl AST 15 (13-39) U/L ALT 24 (7-52) U/L Alkaline Phosphatase 50 (34-104) U/L Total Protein 7.7 (6.0-8.3) gm/dl Albumin 4.5 (3.4-5.0) gm/dl Globulin 3.2 (2.5-4.0) gm/dl Albumin/Globulin Ratio 1.4 (0.9-2) SARS-CoV-2, RNA, NAAT (NEGATIVE) Blood Parasites ID Cancelled 01/25/22 01/25/22 Range/Units 11:09 11:16 WBC RBC Hgb POC Hgb 14.3 (14.0-18.0) g/dl Hct POC Hct 42 (42-52) % MCV MCH MCHC RDW Std Deviation RDW Coeff of Sheldon Plt Count MPV Immature Gran % (Auto) Neut % (Auto) Lymph % (Auto) Reeves % (Auto) Eos % (Auto) Baso % (Auto) Neut # (Auto) Lymph # (Auto) Reeves # (Auto) Eos # (Auto) Baso # (Auto) Immature Gran # (Auto) Absolute Nucleated RBC Nucleated RBC % (auto) Neutrophils % (Manual) Band Neutrophils % Lymphocytes % (Manual) Prolymphocyte % Reactive Lymphs % (Man) Monocytes % (Manual) Eosinophils % (Manual) Basophils % (Manual) Metamyelocytes % (Man) Myelocytes % (Man) Promyelocytes % (Man) Blast Cells % (Manual) Plasma Cell % (Manual) Other Cells % Nucleated RBC % Neutrophils # (Manual) Band Neutrophils # Total Absolute Neuts Lymphocytes # (Manual) Prolymphocyte # Reactive Lymphs # Total Abs Lymphocytes Monocytes # (Manual) Eosinophils # (Manual) Basophils # (Manual) Metamyelocytes # (Man) Myelocytes # (Manual) Promyelocytes # (Man) Blast Cells # (Man) Plasma Cell # (Manual) Other Cells # Nucleated RBCs # (Man) Hypersegmented Neuts Hyposegmented Neuts Hypogranular Neuts Large Granular Lymphs # Lrg Granular Lymphs Hairy Cells Smudge Cells Toxic Granulation Toxic Vacuolation Dohle Bodies Qing Rods Platelet Estimate Hypogranular Platelets Clumped Platelets Giant Platelets Platelet Satelliting RBC Morphology Polychromasia Hypochromasia Poikilocytosis Basophilic Stippling Anisocytosis Microcytosis Macrocytosis Spherocytes Pappenheimer Bodies Sickle Cells Target Cells Tear Drop Cells Ovalocytes Stomatocytes [place] Bodies Echinocytes Acanthocytes (Spur) Rouleaux RBC Agglutinates Schistocytes Sezary Cell POC Sodium 138 (135-144) mmol/L Sodium (136-145) mmol/L POC Potassium 5.1 H (3.3-5.0) mmol/L Potassium (3.5-5.1) mmol/L POC Chloride 105 (101-112) mmol/L Chloride (98-107) mmol/L Carbon Dioxide (21-32) mmol/L POC Total CO2 22 L (24-31) mmol/L Anion Gap (3-11) POC Anion Gap 17.0 (16-25) mmol/L POC BUN 30 H (7-18) mg/dl BUN (6-23) mg/dl Creatinine (0.6-1.4) mg/dl POC Creatinine 1.8 H (0.6-1.3) mg/dl Est Cr Clr Drug Dosing ml/min Est GFR ( Amer) ml/min Est GFR (Non-Af Amer) ml/min BUN/Creatinine Ratio (10-20) Glucose (70-99(Fasting)) mg/dl POC Glucose (other) 137 H (70-99) mg/dl Calcium (8.5-10.1) mg/dl POC Ioniz Calcium Kaylyn 1.22 (1.12-1.32) mmol/l Total Bilirubin (0.2-1.0) mg/dl AST (13-39) U/L ALT (7-52) U/L Alkaline Phosphatase (34-104) U/L Total Protein (6.0-8.3) gm/dl Albumin (3.4-5.0) gm/dl Globulin (2.5-4.0) gm/dl Albumin/Globulin Ratio (0.9-2) SARS-CoV-2, RNA, NAAT NEGATIVE (NEGATIVE) Blood Parasites ID MDM Narrative Patient was seen and evaluated as above in room B10. Review was performed of nursing notes and vital signs. I did review pertinent previous visits and patient history. After obtaining a thorough history and physical examination the above work up was performed. Patient presents to us today with left flank pain. He has a history of kidney stones and this feels similar. Clinically he is well-appearing. Vital signs stable. Options of care were discussed with the patient. IV access was established. Labs were drawn. There is no leukocytosis or concerning anemia. Patient does have ADRI with elevated creatinine and BUN. Patient's potassium is slightly elevated however recheck POC does reveal high normal value. EKG was obtained and reveals normal sinus rhythm at a rate of [address] elevation. QTc 406. QRS 90. Patient was unable to provide a urinalysis initially however after IV hydration was able to provide. Urinalysis results do not reveal infection at this time. COVID testing negative. With the patient having an obstructing stone requiring IV analgesics and narcotics in the setting of ADRI I do believe that it would be reasonable to consider inpatient management. I discussed this with the urology service and at this time patient will be n.p.o. Patient will admitted to the medicine service for further evaluation and management. I discussed the case with the [facility] hospitalist. Please refer to further documentation regarding his stay. Patient amenable to plan of care. GCS: 15 In the evaluation and treatment of this patient the following differential diagnoses were entertained: Dissection, obstruction, UTI, pyelonephritis, kidney stone, among others. Impression & Plan Acute left flank pain, Hydronephrosis with ureteral calculus, ADRI (acute kidney injury) Discharge Plan Visit Data Chief Complaint: Flank Pain Stated Complaint: POSSSIBLE KIDNEY STONE, FLANK PAIN ED Provider: Dyan Christopher ED Midlevel Provider: Sid Robles Discharge Problem: Acute left flank pain, Hydronephrosis with ureteral calculus, ADRI (acute kidney injury) Patient Disposition: Admitted As Inpatient Condition: Good Discharge Instructions Interventions: ED Discharge Assessment Last Done: 01/25/22 13:13
[2022-01-25] MEDS ORDERED: ONDANSETRON INJ 2 MG/ML 2 ML VIAL IV STA (08:55)
[2022-01-25] MEDS ORDERED: HYDROmorphone INJ 1 MG/ML SYRINGE IV STA (08:55)
[2022-01-25] MEDS ORDERED: SODIUM CHLORIDE 0.9% 1000ML 1,000 ML IV SCH (09:00)
--- NOTE | 2022-01-25 10:21 | CT Scan Report ---
ABDOMEN AND PELVIS CT WITHOUT CONTRAST CT DOSE: 889.43 mGy.cm HISTORY: Acute left-sided flank pain in a patient with history of kidney stones L flank pain. hx of stones TECHNIQUE: Multiaxial CT images of the abdomen and pelvis were performed without contrast. A dose lo wering technique was utilized adhering to the principles of ALARA. COMPARISON STUDY: CT abdomen and pelvis 05/02/2019 FINDINGS: Coronary artery calcifications. 4 mm fissural nodule within the right middle lobe on image 10 and 4 mm subpleural nodule of the right middle lobe on image 21 unchanged and favored to be benign . No pneumatosis or pneumoperitoneum. The unenhanced spleen is enlarged measuring 15.3 cm. Unremarkab le pancreas, gallbladder, adrenal glands and liver with mild hepatic steatosis. 4.4 cm parenchymal cyst of the lateral interpolar right kidney. Bilateral renal sinus cysts are again noted. There is mild left-sided hydroureteronephrosis secondary to an obstructing 5 x 4 x 5 mm calcu rishi of the proximal left ureter at the level of L2-L3. Mild left greater than right bilateral perinep hric stranding. 1.2 cm nonobstructing calculus within the interpolar aspect of the right kidney. Part ial distention of the urinary bladder. The prostate measures within the upper limits of normal in siz e. Unremarkable abdominal aorta. Diminutive IVC with multiple venous collaterals and prominent azygos and hemiazygos veins redemonstrated. There is no bowel obstruction or bowel wall thickening. No ascites or mesenteric inflammation. Stool- filled terminal ileum. Normal appendix. There are a few small fat filled ventral abdominal wall herni as present. Degenerative changes of the spine, pelvis and hips. Mild avascular necrosis of the right femoral head again noted without articular collapse. IMPRESSION: 1. Mild left-sided hydroureteronephrosis secondary to an obstructing 5 mm calculus of the proximal le ft ureter. 2. Nonobstructing right nephrolithiasis. 3. No bowel obstruction or bowel wall thickening. 4. Avascular necrosis of the right femoral head. 5. Additional findings as above. ACT 112: Negative or not required by law. The above report was generated using voice recognition software. It may contain grammatical, syntax o r spelling errors. Electronically signed by: Kevin Clancy M.D. 01/25/2022 10:19 AM
[2022-01-25 10:33] LABS: Albumin Globulin Ratio 1.4 (0.9-2); Albumin Level 4.5 gm/dl (3.4-5.0); BUN Creatinine Ratio 17.7 (10-20); Bilirubin,Total 0.9 mg/dl (0.2-1.0); Creatinine Clr Calc Pharmacy 59.9 ml/min; Est GFR (African American) 49.1 ml/min; Est GFR (Non-African American) 42.3 ml/min; Globulin 3.2 gm/dl (2.5-4.0); Potassium 6.1 mmol/L (3.5-5.1); Total Protein 7.7 gm/dl (6.0-8.3)
[2022-01-25 10:54] LABS: Basophils # (auto) 0.04 K/uL (0-0.2); Basophils % (auto) 0.4 %; Eosinophils # (auto) 0.13 K/uL (0-0.50); Eosinophils % (auto) 1.4 %; Hematocrit (blood only) 40.9 % (40.1-51.0); Hemoglobin 14.1 g/dl (14.0-18.0); Immature Granulocytes # (auto) 0.05 K/uL (0.00-0.02); Immature Granulocytes % (auto) 0.5 %; Lymphocytes # (auto) 1.01 K/uL (1.2-3.4); Lymphocytes % (auto) 10.5 %; Mean Corpuscular Hemoglobin 30.1 pg (25.0-34.0); Mean Corpuscular Hgb Conc 34.5 g/dL (32.0-36.0); Mean Corpuscular Volume 87.2 fL (80.0-100.0); Mean Platelet Volume 9.9 fL (9.4-12.4); Monocytes % (auto) 8.3 %; Neutrophils # (auto) 7.56 K/uL (1.4-6.5); Neutrophils % (auto) 78.9 %; Platelet Count 158 K/uL (130-400); RDW Coefficient of Variation 12.1 % (11.5-14.5); RDW Standard Deviation 38.3 fL (36.4-46.3); Red Blood Count 4.69 M/uL (4.63-6.08); White Blood Count 9.59 K/ul (4.8-10.8)
[2022-01-25] MEDS ORDERED: HYDROmorphone INJ 0.5 MG/0.5 ML SYR IV STA (10:54)
--- NOTE | 2022-01-25 11:01 | History & Physical Report ---
Date of Service January 25, 2022 Assessment & Plan (1) Nephrolithiasis: Plan: Left-sided obstructing nephrolithiasis with hydronephrosis Urology consulted, pending recommendations - CTA/P: 1. Mild left-sided hydroureteronephrosis secondary to an obstructing 5 mm calculus of the proximal left ureter.2. Nonobstructing right nephrolithiasis.3. No bowel obstruction or bowel wall thickening.4. Avascular necrosis of the right femoral head.5. Additional findings as above. With associated ADRI CBC pending, UA pending. no dysuria sx, if UA infected appearing +rocephin. Otherwise periprocedure abx per Uro. Continue fluids, scaled hydromorphone for pain control, Zofran as needed Hyerkalemia, -Initial potassium 6.1, Normalized after 1 L fluid No chest pain, chest pressure, palpitations Concerns for hemolyzed sample/difficult stick at initial collection [id number] repeat after 1 L NSS with potassium 5.1, sodium 138, T CO2 22, glucose 137, creatinine 1.8. ? Due to mild hemolysis versus ADRI EKG normal sinus rhythm, without peaked T waves, QTC 406, rate 83 -Lisinopril held. No metabolic acidosis is present. Calcium/SZC deferred given normalization after fluids Type II DM Hold home metformin, dulaglutide Convert to basal/bolus SSI weight-based. Lantus 9 twice daily, CF 45, carb ratio 14 Glucose checks AC/at bedtime Goal BSG [id number] Hypertension Hold home lisinopril in the setting of ADRI Hyperlipidemia Continue atorvastatin R Atraumatic avascular necrosis Mild avascular necrosis without collapse, similar to noted on prior imaging Recommend routine outpatient follow-up with orthopedics - Asymptomatic, denies R hip pain DVT prophylaxis: Heparin in the setting of ADRI, SCDs Disposition: CODE STATUS: Full code Diet: N.p.o. pending surgical evaluation for stent (2) ADRI (acute kidney injury): (3) Hypercholesterolemia: (4) Hypertension: (5) Type 2 diabetes mellitus: History of Present Illness Primary Care Provider: Charlie Camarillo, III, KLARISSA Chris Hall is a 51-year-old male with a past medical history of fatty liver disease, disc metabolic syndrome X, hypercholesterolemia, hypertension, obesity, type 2 diabetes mellitus who presents with left flank pain which began around 3 AM this morning. Has history of right-sided kidney stones. 8/10 pain on initial ER provider evaluation. He is with acute hyperkalemia to 6.1 on admission, ADRI with an elevation of creatinine from 1.14 in July 15 and admitting creatinine of 1.81 [place] warm, no sweats. Not sure if fever at home. Has a hx of R sided kidney stones which were flushed and had a cystoscopy & stent 2019 for similar. Last time he peed was this morning. Last few days been going about a normal amount. No burning, no blood with urination. No lightheadedness/dizziness. No vomiting, +nausea today No chest pain, no chest pressure, no palpitations BM daily, no blood/melena Has not taken medications today Has been on lisinopril for a few years, no issues previously No history of kidney problems/CKD. Is on lisinopril to help protect his kidney 2/2 history of DM, sees Charlie Camarillo/Alejandro Reveles. Colonoscopy screening this year, 3 noncancerous polyps otherwise normal. Medical History: Reviewed Medications: Reviewed Surgical History: Reviewed Allergies: Reviewed. NKDA. Social History: No tobacco product use, rare social alcohol use, no MM or rec drug use. Code Status: Connie Hall [phone] would be surrogate DM. Full Code. Allergies Allergy/AdvReac Type Severity Reaction Status Date / Time No Known Allergies Allergy Verified 01/25/22 10:54 Home Medications Medication Instructions Recorded Confirmed Type econazole 1 % topical cream 1 applic topical BID PRN . 11/10/20 08/14/21 History amoxicillin 500 mg capsule 500 mg PO BID #180 caps 11/15/20 08/14/21 Rx lisinopril 10 mg tablet 10 mg PO QAM #90 tabs 08/09/21 08/14/21 Rx atorvastatin 10 mg tablet 10 mg PO DAILY #90 tabs 11/16/21 Rx metformin 1,000 mg tablet 1,000 mg PO BID #180 tabs 01/24/22 Rx dulaglutide 3 mg/0.5 mL 3 mg subcut WK 01/25/22 01/25/22 History subcutaneous pen injector Past Med/Surg History Medical History Dysmetabolic syndrome X Fatty liver History of anesthesia reaction "ANESTHESIA NOT WORKING FOR HAND SURGERY, COULD FEEL EVERYTHING" History of COVID-19 11/2020>STILL HAS SOME LOSS OF SMELL. 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) History of tonsillectomy and adenoidectomy History of wisdom tooth extraction Family History Mother Diabetes Valvular heart disease Family history of diabetes mellitus Grandfather Prostate cancer Father Heart disease Metabolic syndrome Thyroid disease Family history of diabetes mellitus Sister Thyroid disease Denies family history of Ovarian cancer Myocardial infarction Breast cancer Colorectal cancer Social History Smoking Status: Never smoker Second Hand Exposure: No; Hx Alcohol Use: Yes Alcohol type: beer Hx Substance Use: No Preferred Language: Danish 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 Ability: Effective Visual Impairment: No Limitations Hearing Ability: Normal Probation Agent Required: No Beliefs That Will Affect Care: None marital status: Current Living Situation: Spouse current occupational status: employed 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 NAD. Cooperative. HEENT: Atraumatic, normocephalic. PERLAA. Vision/hearing intact. Pulm: CTAB A&P. -wheezes, -rales, -rhonchi. Symmetrical chest rise. No increased work of breathing. No respiratory distress. Cardiac: RRR, +sys murmur. Radial pulses intact and symmetrical. Abdominal: Nontender, nondistended, soft. BS present. No CVA tenderness on exam./ Ext: warm, dry, no edema. 5/5 service cleaner strenght, ankle dorsi/plantarflexion. Sensation to soft touch intact in hands and feet bilat Results & Data Results & Data ([place]) Vital Signs (Past 12 Hours) Vital Signs Temp Pulse Resp BP Pulse Ox O2 Del Method 01/25/22 08:34 36.2 C L 82 20 156/87 H 98 Room Air PG Care Time/CCT Total # of Minutes Spent Total Time Spent with Patient: Total time spent is greater than 50% in coordination of care (as documented) at patient's floor/unit and/or counseling patient: Coding Level of Care Code 51591 Initial Inpt Care Lvl 2 Diagnoses Nephrolithiasis N20.0 ADRI (acute kidney injury) N17.9 Hypercholesterolemia E78.00 Hypertension I10 Type 2 diabetes mellitus E11.65 Diabetes mellitus intermediate school teacher insulin use: without intermediate school teacher use Diabetes mellitus complication status: with hyperglycemia (1) Type 2 diabetes mellitus Diabetes mellitus intermediate insulin use: without intermediate school teacher use Diabetes mellitus complication status: with hyperglycemia Qualified Code(s): E11.65 - Type 2 diabetes mellitus with hyperglycemia
[2022-01-25 11:28] LABS: iSTAT Creatinine 1.8 mg/dl (0.6-1.3); iSTAT Hemoglobin 14.3 g/dl (14.0-18.0); iSTAT Ionized Calcium 1.22 mmol/l (1.12-1.32); iSTAT Potassium 5.1 mmol/L (3.3-5.0)
[2022-01-25] MEDS ORDERED: HYDROmorphone INJ 0.5 MG/0.5 ML SYR IV ONE (11:36)
[2022-01-25 12:11] LABS: Appearance Urine Clear (Clear); Bacteria Urine Automated Negative (Negative); Bilirubin Urine Negative (Negative); Blood Urine 2+ (Negative); Cast Urine Automated 0 /lpf (0-5); Color Urine Yellow; Epithelial Cell Urine Auto 0-5 /lpf (0-5); Glucose Urine UA Trace (Negative); Ketones Urine Trace (Negative); Leukocyte Esterase Urine Negative (Negative); Nitrite Urine Negative (Negative); Protein Urine Negative (Negative); Specific Gravity Urine 1.015 (1.000-1.030); Urobilinogen Urine Negative (Negative); pH Urine 5.5 (4.5-7.5)
[2022-01-25] MEDS ORDERED: GLUCOSE 10 TAB/TUBE PO PRN (13:30)
[2022-01-25] MEDS ORDERED: CARBOHYDRATES FOR HYPOGLYCEMIA PO PRN (13:30)
[2022-01-25] MEDS ORDERED: ACETAMINOPHEN 1,000 MG/100 ML VIAL IV STA (13:30)
[2022-01-25] MEDS ORDERED: ONDANSETRON INJ 2 MG/ML 2 ML VIAL IV PRN ×2 (13:30→15:20)
[2022-01-25] MEDS ORDERED: DEXTROSE 50% 50 ML SYRINGE IV PRN (13:30)
[2022-01-25] MEDS ORDERED: GLUCOSE 40% GEL 15 GM TUBE PO PRN (13:30)
[2022-01-25] MEDS ORDERED: GLUCAGON FOR INJ 1 MG VIAL SQ PRN (13:30)
[2022-01-25] MEDS ORDERED: HYDROmorphone INJ 1 MG/ML SYRINGE IV PRN (13:30)
[2022-01-25] MEDS ORDERED: HYDROmorphone INJ 0.5 MG/0.5 ML SYR IV PRN (13:30)
--- NOTE | 2022-01-25 13:36 | Urology Consultation ---
Date of Consultation January 25, 2022 Assessment & Plan (1) ADRI (acute kidney injury): (2) Calculus of proximal left ureter: 51 year old male admitted for acute left flank pain secondary to left proximal ureteral stone, ADRI, and hyperkalemia. - Patient afebrile, nontoxic, and hemodynamically stable. - Lab work reviewed - creatinine 1.81, WBC 9.59, repeat point of care potassium 5.1. - Urinalysis noted 5-10 RBCs but otherwise was not suggestive of infection. - He continues to have moderate/severe pain. - Discussed options for stone management including trial of passage vs surgical intervention. - Discussed left ureteral stent placement inpatient vs outpatient surgical options. - Ureteral stents were discussed as well as post-operative pain management. - Patient would like to proceed with surgery today. - Findings reviewed with Dr. Ann. Given his ADRI and flank pain in the context of an obstructing 5 mm left ureteral stone, will proceed to OR for cystoscopy, left retrograde pyelogram and left ureteral stent placement. - Keep NPO for procedure. - Risks and benefits to be reviewed with patient by Dr. Ann. OR notified. - Will cover with IV Ancef preoperatively. Supervising Physician Co-Signing Physician Notes I have discussed Mr. Hall's case with KLARISSA Stout and agree with the above documentation. He has an obstructing left ureteral stone with intractable pain. We will plan for stent placement. If the stone is resolutely visible, we may remove the stent as well. Reviewed risks and benefits of cystoscopy, retrograde pyelogram and left ureteral stent placement, specifically risks of bleeding, infection, injury to urinary tract, inability to place a stent, need for additional procedures. He expressed understanding and willingness to proceed with surgery. History of Present Illness Reason for Consultation: Left ureteral stone Requesting Physician: Dr. Betts Attending Physician: Dr. Betts History of Present Illness This is a 51 year old male with a past medical history of fatty liver disease, dysmetabolic syndrome X, hypercholesterolemia, hypertension, obesity, type 2 diabetes mellitus who presented to the emergency department with acute onset of left flank pain. On arrival, he was afebrile and hemodynamically stable. His chemistry was notable for a creatinine of 1.81 and potassium of 6.1. CBC showed no leukocytosis. Urinalysis notable for 2+blood, 5-10 RBCs, and was negative for bacteria and nitrates. CT A/P without contrast showed a 5 mm proximal left ureteral stone with mild left hydroureteronephrosis. He was treated with IV fluids, Hydromorphone, and Ondansetron. He was admitted to the hospital medicine for left ureteral stone, ADRI, and hyperkalemia. [id number] repeat lab work after 1 L NSS showed a potassium of 5.1. EKG normal sinus rhythm. Urology consulted for evaluation of left ureteral stone. Patient seen and examined at bedside this afternoon. present. He is awake, alert and resting in bed currently getting an echo. Reports 8/10 pain located in left lower abdomen. Voiding spontaneously. No dysuria or hematuria. No vomiting. Nausea improved after Zofran. No fever or chills. Last ate/drank yesterday evening at 8 pm. No chest pain or shortness of breath. He follows with our service for history of right-sided kidney stones. Last surgical intervention was right ureteroscopy and laser lithotripsy in Apr 2019. Has never spontaneously passed a stone. Allergies Allergy/AdvReac Type Severity Reaction Status Date / Time No Known Allergies Allergy Verified 01/25/22 10:54 Home Medications Medication Instructions Recorded Confirmed Type econazole 1 % topical cream 1 applic topical BID PRN ATHLETES 11/10/20 01/25/22 History FOOT amoxicillin 500 mg capsule 500 mg PO BID #180 caps 11/15/20 01/25/22 Rx lisinopril 10 mg tablet 10 mg PO QAM #90 tabs 08/09/21 01/25/22 Rx atorvastatin 10 mg tablet 10 mg PO DAILY #90 tabs 11/16/21 01/25/22 Rx metformin 1,000 mg tablet 1,000 mg PO BID #180 tabs 01/24/22 01/25/22 Rx dulaglutide 3 mg/0.5 mL 3 mg subcut WK 01/25/22 01/25/22 History subcutaneous pen injector Patient History Medical History Dysmetabolic syndrome X Fatty liver History of anesthesia reaction "ANESTHESIA NOT WORKING FOR HAND SURGERY, COULD FEEL EVERYTHING" History of COVID-19 11/2020>STILL HAS SOME LOSS OF SMELL. 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) History of tonsillectomy and adenoidectomy History of wisdom tooth extraction Family History Mother Diabetes Valvular heart disease Family history of diabetes mellitus Grandfather Prostate cancer Father Heart disease Metabolic syndrome Thyroid disease Family history of diabetes mellitus Sister Thyroid disease Denies family history of Ovarian cancer Myocardial infarction Breast cancer Colorectal cancer Social History Smoking Status: Never smoker Second Hand Exposure: No; Hx Alcohol Use: Yes Alcohol type: beer Hx Substance Use: No Preferred Language: Czech 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 Ability: Effective Visual Impairment: No Limitations Hearing Ability: Normal Roller Shop Supervisor Required: No Beliefs That Will Affect Care: None marital status: Current Living Situation: Spouse current occupational status: employed 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 [employer] Feels Safe at Home: Yes Dental Care, Regularly: Yes Physical Activity Frequency: 1-2 Times per Week Seatbelt Use: always Assistive Devices: Glasses Review of Systems Review of Systems: All systems reviewed & are unremarkable except as noted in HPI & below Physical Exam Constitutional: well developed and well nourished; no acute distress and not ill appearing Eyes: no scleral abnormality Neck: trachea midline Respiratory: normal respiratory effort and able to speak in complete sentences; no respiratory distress and no labored breathing Cardiovascular: Extremities: no pedal edema Gastrointestinal (Abdomen): Inspection/Auscultation: abdomen normal to inspection; abdomen not distended Percussion/Palpation: + abdomen tender (tender at left lower quadrant) and abdomen soft; no guarding Musculoskeletal: Head/Neck/Chest: normocephalic and head atraumatic Skin: no visible skin rashes Neurologic: moves all extremities and awake Psychiatric: Orientation: alert and oriented x 3 Genitourinary: no CVA tenderness Results & Data ([facility]) Vital Signs (Past 12 Hours) Vital Signs Temp Pulse Resp BP BP Pulse Ox O2 Del Method 01/25/22 12:00 87 16 01/25/22 11:30 88 15 96 01/25/22 11:00 92 H 17 94 01/25/22 10:30 92 H 16 90 01/25/22 10:06 88 14 96 01/25/22 10:55 Room Air 01/25/22 12:19 149/86 H 01/25/22 08:34 36.2 C L 82 20 156/87 H 98 Room Air PG Care Time/CCT Total # of Minutes Spent Total Time Spent with Patient: Total time spent is greater than 50% in coordination of care (as documented) at patient's floor/unit and/or counseling patient: Coding Level of Care Code 29869 Inpt Consult Level 3 Diagnoses ADRI (acute kidney injury) N17.9 Calculus of proximal left ureter N20.1
[2022-01-25] MEDS ORDERED: FLUARIX QUADRIVALENT 0.5 ML SYR IM ONE (14:00)
[2022-01-25] MEDS ORDERED: ceFAZolin 2000MG 2,000 MG/15 ML SYR IV ONE (14:27)
[2022-01-25] MEDS ORDERED: PROPOFOL IV EMULSION 10 MG/ML 20 ML VIAL IV ONE ×3 (14:38→14:46)
[2022-01-25] MEDS ORDERED: MIDAZOLAM HCL 1 MG/ML 2ML VIAL ONE (14:38)
[2022-01-25] MEDS ORDERED: LIDOCAINE 2% MPF LOCAL 5 ML VIAL INFIL ONE (14:38)
[2022-01-25] MEDS ORDERED: fentaNYL citrate 100 MCG/2 ML VIAL ONE (14:38)
[2022-01-25] MEDS ORDERED: DIATRIZOATE MEGLUMINE 30% 100ML VIAL INSTIL ONE (15:07)
--- NOTE | 2022-01-25 15:18 | Anesthesiology Consultation ---
Date of Service January 25, 2022 Assessment & Plan Chart Review Chart Review: Acceptable Risk for Surgery Consults Requested none History Surgery Operation Date: 01/25/22 10:20 Proposed Procedures p Cystoscopy, Left Retrograde Pyelogram, Left Ureteral Stent Insertion - Kavon Ann MD Height/Weight Height: 6 ft Weight: 102.8 kg Allergies Allergy/AdvReac Type Severity Reaction Status Date / Time No Known Allergies Allergy Verified 01/25/22 10:54 Medications Home Medications Medication Instructions Recorded Confirmed Last Taken econazole 1 % topical cream 1 applic topical BID PRN ATHLETES 11/10/20 01/25/22 Unknown FOOT amoxicillin 500 mg capsule 500 mg PO BID #180 caps 11/15/20 01/25/22 01/24/22 lisinopril 10 mg tablet 10 mg PO QAM #90 tabs 08/09/21 01/25/22 01/24/22 atorvastatin 10 mg tablet 10 mg PO DAILY #90 tabs 11/16/21 01/25/22 01/24/22 metformin 1,000 mg tablet 1,000 mg PO BID #180 tabs 01/24/22 01/25/22 01/24/22 dulaglutide 3 mg/0.5 mL 3 mg subcut WK 01/25/22 01/25/22 01/20/22 subcutaneous pen injector NPO Date Last Intake of Fluids: 01/24/22 Time Last Intake of Fluids: 20:00 Date Last Intake of Solids: 01/24/22 Time Last Intake of Solids: 20:00 Past Medical History Medical History Dysmetabolic syndrome X Fatty liver History of anesthesia reaction "ANESTHESIA NOT WORKING FOR HAND SURGERY, COULD FEEL EVERYTHING" History of COVID-19 11/2020>STILL HAS SOME LOSS OF SMELL. History of kidney stones Hypercholesterolemia Hypertension Lipoma of stomach Obese Recurrent cellulitis REASON FOR DAILY AMOXICILLIN Renal cyst Splenomegaly Tinea pedis Type 2 diabetes mellitus Uncontrolled type 2 diabetes mellitus Vitiligo Past Family History Family History Mother Diabetes Valvular heart disease Family history of diabetes mellitus Grandfather Prostate cancer Father Heart disease Metabolic syndrome Thyroid disease Family history of diabetes mellitus Sister Thyroid disease Denies family history of Ovarian cancer Myocardial infarction Breast cancer Colorectal cancer Past Surgical History Surgical History H/O umbilical hernia repair History of cystoscopy WITH STONE REMOVAL 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) History of tonsillectomy and adenoidectomy History of wisdom tooth extraction Social History Smoking Status: Never smoker Hx Alcohol Use: Yes Alcohol type: beer alcohol intake frequency: a few times a month Hx Substance Use: No substance use type: does not use Physical Exam Vital Signs Last Vital Signs Temp 36.8 C 01/25/22 15:00 Pulse 93 H 01/25/22 15:00 Resp 18 01/25/22 15:00 BP 126/84 01/25/22 15:00 Pulse Ox 94 01/25/22 15:00 O2 Del Method 01/25/22 15:00 Testing Laboratory Results 01/25/22 10:37 01/25/22 09:24 Urine Color Yellow 01/25/22 11:44 Urine Appearance Clear (Clear) 01/25/22 11:44 Urine pH 5.5 (4.5-7.5) 01/25/22 11:44 Ur Specific [place] 1.015 (1.000-1.030) 01/25/22 11:44 Urine Protein Negative (Negative) 01/25/22 11:44 Urine Glucose (UA) Trace (Negative) H 01/25/22 11:44 Urine Ketones Trace (Negative) H 01/25/22 11:44 Urine Nitrite Negative (Negative) 01/25/22 11:44 Ur Leukocyte Esterase Negative (Negative) 01/25/22 11:44 Urine WBC (Auto) 1-5 /hpf (0-5) 01/25/22 11:44 Urine RBC (Auto) 5-10 /hpf (0-4) H 01/25/22 11:44 U Hyaline Cast (Auto) 0 /lpf (0-5) 01/25/22 11:44 U Epithel Cells (Auto) 0-5 /lpf (0-5) 01/25/22 11:44 Urine Bacteria (Auto) Negative (Negative) 01/25/22 11:44 01/25/22 11:16 POC Glucose (other) 137 H
[2022-01-25] MEDS ORDERED: fentaNYL citrate 100 MCG/2 ML VIAL IV PRN (15:20)
[2022-01-25] MEDS ORDERED: HYDROmorphone INJ 2 MG/ML SYR/VIAL IV PRN (15:20)
[2022-01-25] MEDS ORDERED: ATROPINE SULFATE 0.1 MG/ML 10ML SYR IV PRN (15:20)
[2022-01-25] MEDS ORDERED: PROMETHAZINE HCL 12.5 MG in SODIUM CHLORIDE 0.9% 50 ML IV PRN (15:20)
[2022-01-25] MEDS ORDERED: ePHEDrine sulfate 50 MG/ML AMP IV PRN (15:20)
[2022-01-25] MEDS: INSULIN ASPART PER UNIT SC SCH ×3 (15:40→21:06)
--- NOTE | 2022-01-25 15:44 | Operative Report ---
PG Post Operative Report Pre & Post Diagnosis Operation Date: 01/25/22 10:20 Pre-Op Diagnosis: NEPHROLITHIASIS WITH ADRI, HYPERKALEMIA, left side Post-Op Diagnosis: NEPHROLITHIASIS WITH ADRI, HYPERKALEMIA, left side I identified the patient and participated in the time-out.: Yes Procedure Operation Date: 01/25/22 10:20 Actual Procedures p Cystoscopy, Left Retrograde Pyelogram, Left Ureteral Stent Insertion(Left) - Kavon Ann MD Surgeon Kavon Ann MD Clerk Cashier None Estimated Blood Loss 0 Findings Consistent with Post-Op Diagnosis Specimens none Drains 6 [place] by 26 cm double-J ureteral stent in the left ureter Anesthesia Type MAC Complications none Disposition Disposition: Recovery Room Indications This is a 51-year-old male who presented to the emergency department on 01/25/2022 with hyperkalemia and flank pain. On CT scan he was found to have an obstructing ureteral stone. Due to uncontrollable pain he is being brought to the OR for decompression of the left kidney and possible stone removal. Description of Procedure The patient was identified in the holding area and informed consent was confirm ed. He was marked on the left side, then was taken to the operating room where anesthesia was initiated. He was placed in the dorsal lithotomy position with all pressure points appropriately padded. He was prepped and draped in the usual sterile fashion and a preoperative timeout was performed. A well-lubricated cystoscope was inserted per urethra and panendoscopy was performed. The pendulous and bulbar urethra were both erythematous with some early formation of circumferential rings suggesting possible scar tissue. The cystoscope bypassed these without any trouble. The prostate was of normal size but had a somewhat high bladder neck. His bladder appeared grossly normal with no tumors or stones appreciated. Ureteral orifices were in orthotopic position bilaterally. A 5 [place] open-ended catheter was inserted and used to intubate the left ureteral orifice. A retrograde pyelogram was performed using Cystografin. The left ureter was somewhat narrow in caliber distally but was normal in course. No obvious filling defect was seen to indicate the stone. A 0.038 inch zip wire was advanced up to the kidney under fluoroscopic guidance. Over the wire, a 6 [place] x 26 cm double-J ureteral stent was advanced. When the wire was removed, there was a good curl in the kidney under fluoroscopic guidance. A curl was visualized in the bladder with the cystoscope. At this point the bladder was drained and all instrumentation was removed. The patient was then awakened from anesthesia and was brought to the PACU in stable condition. I attest to the content of the Intraoperative Record and any orders documented therein. Any exceptions are noted below.
--- NOTE | 2022-01-25 16:05 | Fluoroscopy Report ---
FL retrograde includes kub CLINICAL HISTORY: LT CYSTO/STENT COMPARISON STUDY: None. FLUOROSCOPY TIME: 8 seconds. FINDINGS: 5 fluoroscopic spot images of the abdomen demonstrate placement of a left ureteral stent. O nly the proximal portion of the stent is identified and appears in good position. IMPRESSION: Fluoroscopic assistance provided for left ureteral stent placement. ACT 112: Negative or not required by law. Electronically signed by: Angelito Barnett M.D. 01/25/2022 4:04 PM
--- NOTE | 2022-01-25 16:16 | Anesthesiology Progress Note ---
Date of Service January 25, 2022 Anesthesia Post Procedure Vital Signs Vital Signs: Temp Pulse Pulse Resp BP BP Pulse Ox 01/25/22 16:10 36.4 C L 92 H 15 115/67 96 01/25/22 16:00 90 12 119/72 99 01/25/22 15:51 36.4 C L 98 H 19 115/74 99 01/25/22 15:00 36.8 C 93 H 18 126/84 94 01/25/22 13:26 37.2 C 18 141/83 H 95 01/25/22 12:00 87 16 01/25/22 11:30 88 15 96 01/25/22 11:00 92 H 17 94 01/25/22 10:30 92 H 16 90 01/25/22 10:06 88 14 96 01/25/22 10:55 01/25/22 12:19 149/86 H 01/25/22 08:34 36.2 C L 82 20 156/87 H 98 O2 Del Method O2 Flow Rate 01/25/22 16:10 Nasal Cannula 2 01/25/22 16:00 Nasal Cannula 4 01/25/22 15:51 Nasal Cannula 4 01/25/22 15:00 Room Air 01/25/22 13:26 Room Air 01/25/22 12:00 01/25/22 11:30 01/25/22 11:00 01/25/22 10:30 01/25/22 10:06 01/25/22 10:55 Room Air 01/25/22 12:19 01/25/22 08:34 Room Air Pain Intensity Left Flank: Pain Intensity: 0 Transfer of Care Handoff Completed per policy Notes Mental Status: alert / awake / arousable and participated in evaluation Patient Amnestic to Procedure: Yes Nausea / Vomiting: adequately controlled Pain: adequately controlled Airway Patency, RR, SpO2: stable & adequate BP & HR: stable & adequate Hydration State: stable & adequate Anesthetic Complications: no major complications apparent
[2022-01-25 18:54] LABS: Potassium 4.4 mmol/L (3.5-5.1)
[2022-01-25 18:55] LABS: BUN Creatinine Ratio 18.4 (10-20); Calcium 9.2 mg/dl (8.5-10.1); Creatinine Clr Calc Pharmacy 71.3 ml/min; Est GFR (African American) 60.6 ml/min; Est GFR (Non-African American) 52.3 ml/min
--- NOTE | 2022-01-25 19:04 | XCELERA ---
[id number]
[2022-01-25] MEDS: LANTUS PER UNIT CHARGE SQ SCH (21:22)
[2022-01-25] MEDS: ACETAMINOPHEN 325 MG TAB PO PRN (21:27)
--- NOTE | 2022-01-26 05:58 | Electrocardiogram Report ---
Test Reason : Blood Pressure : / mmHG Vent. Rate : 083 BPM Atrial Rate : 083 BPM P-R Int : 160 ms QRS Dur : 090 ms QT Int : 346 ms P-R-T Axes : 054 026 036 degrees QTc Int : 406 ms Normal sinus rhythm Normal ECG No previous ECGs available Confirmed by Rogers Zhao ([id number]) on 01/26/2022 5:58:15 AM Referred By: REFERRED SELF Confirmed By:Rogers Zhao
[2022-01-26] MEDS: ACETAMINOPHEN 325 MG TAB PO PRN (06:12)
[2022-01-26 06:13] LABS: Basophils # (auto) 0.04 K/uL (0-0.2); Basophils % (auto) 0.5 %; Eosinophils # (auto) 0.35 K/uL (0-0.50); Eosinophils % (auto) 4.8 %; Hematocrit (blood only) 41.1 % (40.1-51.0); Hemoglobin 13.8 g/dl (14.0-18.0); Immature Granulocytes # (auto) 0.04 K/uL (0.00-0.02); Immature Granulocytes % (auto) 0.5 %; Lymphocytes # (auto) 1.57 K/uL (1.2-3.4); Lymphocytes % (auto) 21.3 %; Mean Corpuscular Hgb Conc 33.6 g/dL (32.0-36.0); Mean Corpuscular Volume 89.3 fL (80.0-100.0); Mean Platelet Volume 9.9 fL (9.4-12.4); Monocytes # (auto) 0.92 K/uL (0.24-0.82); Monocytes % (auto) 12.5 %; Neutrophils # (auto) 4.44 K/uL (1.4-6.5); Neutrophils % (auto) 60.4 %; Platelet Count 174 K/uL (130-400); RDW Coefficient of Variation 12.2 % (11.5-14.5); RDW Standard Deviation 39.7 fL (36.4-46.3); White Blood Count 7.36 K/ul (4.8-10.8)
--- NOTE | 2022-01-26 08:18 | Urology Progress Note ---
Date of Service January 26, 2022 Assessment & Plan (1) Calculus of proximal left ureter: (2) ADRI (acute kidney injury): Plan: - Pt POD#1 s/p cystoscopy and left ureteral stent placement. - Doing well, progressing as expected. - Afebrile, lab work reviewed - creatinine improved to 1.52, WBC 7.36. - Tolerating left ureteral stent with minimal bother. - Okay to d/c from perspective when medically stable. - Recommend d/c with course of Tamsulosin, prn Pyridium, prn Oxybutynin, and prn analgesia for stent management. - Expected clinical course reviewed, all questions answered. - Will arrange outpatient follow-up with our service to discuss definitive stone management. Admission and Anticipated Discharge Date Admission Date: January 25, 2022 Subjective POD #1 s/p cystoscopy and left ureteral stent placement. Subjectively doing well. Left flank and abdominal pain are improved today. Tolerating stent, managing well with PO Tylenol. Voiding spontaneously. He notes urinary urgency and hematuria. No dysuria. No nausea or vomiting. No fever or chills. Review of Systems Constitutional: as per Subjective / HPI Gastrointestinal: as per Subjective / HPI Genitourinary: + as per Subjective / HPI Physical Exam Constitutional: well developed and well nourished; no acute distress and not ill appearing Respiratory: normal respiratory effort and able to speak in complete sentences; no respiratory distress and no labored breathing Cardiovascular: Extremities: no pedal edema Gastrointestinal (Abdomen): Inspection/Auscultation: abdomen normal to inspection; abdomen not distended Musculoskeletal: Head/Neck/Chest: normocephalic and head atraumatic Skin: no visible skin rashes Neurologic: moves all extremities and awake Psychiatric: Orientation: alert and oriented x 3 Results & Data ([facility]) Vital Signs (Past 12 Hours) Vital Signs Temp Pulse Resp BP Pulse Ox O2 Del Method 01/26/22 07:35 36.7 C 75 16 124/82 96 Room Air 01/26/22 02:45 36.8 C 85 16 118/72 94 Room Air 01/25/22 22:31 37.2 C 86 16 102/61 95 Room Air PG Care Time/CCT Total # of Minutes Spent Total Time Spent with Patient: Total time spent is greater than 50% in coordination of care (as documented) at patient's floor/unit and/or counseling patient: Coding Level of Care Code 02761 Subseq Hosp Care Lvl 2 Diagnoses Calculus of proximal left ureter N20.1 ADRI (acute kidney injury) N17.9
[2022-01-26 08:38] LABS: Estimated Average Glucose 143 mg/dl; Hemoglobin A1C 6.6 % (4.5-5.6)
[2022-01-26] MEDS: INSULIN ASPART PER UNIT SC SCH ×2 (08:49→12:56)
[2022-01-26] MEDS: LANTUS PER UNIT CHARGE SQ SCH (08:51)
[2022-01-26] MEDS ORDERED: ATORVASTATIN 10 MG TAB PO SCH (09:00)
[2022-01-26] MEDS ORDERED: HEPARIN SOD 5,000 UNIT/0.5 ML VIAL SQ SCH (09:00)
[2022-01-26 09:57] LABS: Calcium 9.5 mg/dl (8.5-10.1); Creatinine Clr Calc Pharmacy 76.3 ml/min; Est GFR (African American) 65.8 ml/min; Est GFR (Non-African American) 56.8 ml/min; Potassium 4.2 mmol/L (3.5-5.1)
--- NOTE | 2022-01-26 12:12 | Discharge Summary ---
Date of Service January 26, 2022 Admission HPI Per Admitting Provider Chris Hall is a 51-year-old male with a past medical history of fatty liver disease, disc metabolic syndrome X, hypercholesterolemia, hypertension, obesity, type 2 diabetes mellitus who presents with left flank pain which began around 3 AM this morning. Has history of right-sided kidney stones. 8/10 pain on initial ER provider evaluation. He is with acute hyperkalemia to 6.1 on admission, ADRI with an elevation of creatinine from 1.14 in July 15 and admitting creatinine of 1.81 Palmer warm, no sweats. Not sure if fever at home. Has a hx of R sided kidney stones which were flushed and had a cystoscopy & st ent 2019 for similar. Last time he peed was this morning. Last few days been going about a normal amount. No burning, no blood with urination. No lightheadedness/dizziness. No vomiting, +nausea today No chest pain, no chest pressure, no palpitations BM daily, no blood/melena Has not taken medications today Has been on lisinopril for a few years, no issues previously No history of kidney problems/CKD. Is on lisinopril to help protect his kidney 2/2 history of DM, sees Charlie Camarillo/Alejandro Reveles. Colonoscopy screening this year, 3 noncancerous polyps otherwise normal. Principal Diagnosis 1. Left ureteral calculus s/p cystoscopy and ureteral stent placement 2. ADRI 2/2 #1 - improved Discharge Exam GENERAL: 51 yo Well-developed, well-nourished WM. NAD. LUNGS: Clear to auscultation bilaterally. No W/R/R. CARDIOVASCULAR: Regular rate and rhythm. ABDOMEN: Soft, non-tender and non-distended. BS normoactive x 4 quad. EXTREMITIES: No edema. Non-tender. Peripheral pulses +2/4. NEUROLOGIC: A&O x3. Nonfocal PSYCHIATRIC: Cooperative. Appropriate mood and affect. SKIN: Warm, dry, intact. No rashes or lesions. Discharge Data Allergies Allergy/AdvReac Type Severity Reaction Status Date / Time No Known Allergies Allergy Verified 01/25/22 10:54 Consultations 01/25/22 10:56 ED Decision to Admit Stat 01/25/22 13:30 Consult Urology Routine Procedures Performed Operation Date: 01/25/22 10:20 Actual Procedures p Cystoscopy, Left Retrograde Pyelogram, Left Ureteral Stent Insertion(Left) - Kavon Ann MD Ordered Studies Abdomen/Pelvis CT 01/25/22 08:[address] WITHOUT CONTRAST CT DOSE: 889.43 mGy.cm HISTORY: Acute left-sided flank pain in a patient with history of kidney stones L flank pain. hx of stones TECHNIQUE: Multiaxial CT images of the abdomen and pelvis were performed without contrast. A dose lowering technique was utilized adhering to the principles of ALARA. COMPARISON STUDY: CT abdomen and pelvis 05/02/2019 FINDINGS: Coronary artery calcifications. 4 mm fissural nodule within the right middle lobe on image 10 and 4 mm subpleural nodule of the right middle lobe on image 21 unchanged and favored to be benign. No pneumatosis or pneumoperitoneum. The unenhanced spleen is enlarged measuring 15.3 cm. Unremarkable pancreas, gallbladder, adrenal glands and liver with mild hepatic steatosis. 4.4 cm parenchymal cyst of the lateral interpolar right kidney. Bilateral renal sinus cysts are again noted. There is mild left-sided hydroureteronephrosis secondary to an obstructing 5 x 4 x 5 mm calculus of the proximal left ureter at the level of L2-L3. Mild left greater than right bilateral perinephric stranding. 1.2 cm nonobstructing calculus within the interpolar aspect of the right kidney. Partial distention of the urinary bladder. The prostate measures within the upper limits of normal in size. Unremarkable abdominal aorta. Diminutive IVC with multiple venous collaterals and prominent azygos and hemiazygos veins redemonstrated. There is no bowel obstruction or bowel wall thickening. No ascites or mesenteric inflammation. Stool-filled terminal ileum. Normal appendix. There are a few small fat filled ventral abdominal wall hernias present. Degenerative changes of the spine, pelvis and hips. Mild avascular necrosis of the right femoral head again noted without articular collapse. IMPRESSION: 1. Mild left-sided hydroureteronephrosis secondary to an obstructing 5 mm calculus of the proximal left ureter. 2. Nonobstructing right nephrolithiasis. 3. No bowel obstruction or bowel wall thickening. 4. Avascular necrosis of the right femoral head. 5. Additional findings as above. ACT 112: Negative or not required by law. The above report was generated using voice recognition software. It may contain grammatical, syntax or spelling errors. Electronically signed by: Kevin Clancy M.D. 01/25/2022 10:19 AM Retrograde Pyelogram 01/25/22 15:15 FL retrograde includes kub CLINICAL HISTORY: LT CYSTO/STENT COMPARISON STUDY: None. FLUOROSCOPY TIME: 8 seconds. FINDINGS: 5 fluoroscopic spot images of the abdomen demonstrate placement of a left ureteral stent. Only the proximal portion of the stent is identified and appears in good position. IMPRESSION: Fluoroscopic assistance provided for left ureteral stent placement. ACT 112: Negative or not required by law. Electronically signed by: Angelito Barnett M.D. 01/25/2022 4:04 PM Hospital Course (1) Nephrolithiasis: Left-sided obstructing nephrolithiasis with hydronephrosis Urology consulted, pending recommendations - CTA/P: 1. Mild left-sided hydroureteronephrosis secondary to an obstructing 5 mm calculus of the proximal left ureter. 2. Nonobstructing right nephrolithiasis UA obtained, non-infectious appearing, no abx or urine cx collected Urology consulted, underwent stent placement on 01/[address] Ann Fluids stopped, tolerating stent placement with only APAP Will plan for dc home today, rx for flomax, oxybutynin prn, and pyridium, can continue apap as outpatient Urology will contact pt to schedule f/u (2) ADRI (acute kidney injury): ADRI secondary to hydronephrosis in setting of L ureteral stone Improving s/p stent placement (3) Hyperkalemia: Initial potassium 6.1, Normalized after 1 L fluid No chest pain, chest pressure, palpitations Concerns for hemolyzed sample/difficult stick at initial collection [id number] repeat after 1 L NSS with potassium 5.1, sodium 138, T CO2 22, glucose 137, creatinine 1.8. ? Suspect d/t hemolysis +/- Lisinopril versus ADRI as his ADRI is so mild EKG normal sinus rhythm, without peaked T waves, QTC 406, rate 83 BP normal in absence of Lisinopril, encourage pcp follow up and could consider alternative med if BP should require reinstitution of antihypertensives (4) Hypercholesterolemia: Continue statin (5) Hypertension: Hold home lisinopril in the setting of ADRI See above (6) Type 2 diabetes mellitus: Hold home metformin, dulaglutide Convert to basal/bolus SSI weight-based. Lantus 9 twice daily, CF 45, carb ratio 14 Glucose checks AC/at bedtime Goal BSG [id number] Plan Patient is medically and hemodynamically stable for discharge home today. Recommend follow up with pcp ideally within 1 week of discharge due to stopping Lisinopril for BP recheck. Above plan of care has been d/w Dr. Guillermo Johnson who agrees with aforementioned. Total Time Total Time Spent Total Time Spent (In Minutes): >30 minutes Discharge Plan Discharge Items Patient Disposition: Home - Self-Care Reason For Visit: NEPHROLITHIASIS WITH ADRI, HYPERKALEMIA Discharge Diagnosis: left sided kidney stone Condition on Discharge: Good Activity: Resume your previous activity Non-emergency contact: Primary Care Provider and Urologist Call non-emergency contact if: you have any medication questions Follow-up/Referrals: Charlie Camarillo III, CRNP [Primary Care Provider] - 02/01/22 9:20 am Kavon Ann MD [Physician] - (2 weeks - office will call you schedule appointment) Diet: Carb Consistent or DM2 Addtl Attending Provider Instructions: You were hospitalized due to a kidney stone in your left ureter which as a result was impacting your kidney function. You were taken for stent placement by Dr. Ann on 01/25. You will need to follow up with him in the office. His office will contact you to schedule your follow up. You will be discharged home on the following medications: Pyridium 100mg which you can take up to three times per day as needed for burning discomfort when you void, Flomax 0.4mg once a day (usually taken at bedtime), and lastly Oxybutynin which you can take as needed for stent discomfort. Since you have been receiving relief with Tylenol, you can continue to use over the counter Tylenol as needed for pain/discomfort. Do not exceed more than 3000mg of Tylenol in a 24 hour period. We would also advise follow up with your family doctor within 1 week of discharge. Pending Studies at Discharge: No Stand-Alone Forms: My [employer], Smoking Cessation Medications and DC Order Prescriptions: New oxybutynin chloride 5 mg tablet 5 mg PO Q8H PRN (Reason: bladder spasms) Qty: 10 0RF tamsulosin [Flomax] 0.4 mg capsule 0.4 mg PO HS Qty: 30 0RF phenazopyridine [Pyridium] 100 mg tablet 100 mg PO Q8H PRN (Reason: pain) Qty: 6 0RF Continued amoxicillin 500 mg capsule 500 mg PO BID Qty: 180 3RF Label Comments: TAKES CHRONIC FOR CELLULITUS IN LEGS atorvastatin 10 mg tablet 10 mg PO DAILY Qty: 90 1RF metformin 1,000 mg tablet 1,000 mg PO BID Qty: 180 3RF econazole 1 % cream 1 applic topical BID PRN (Reason: ATHLETES FOOT) Rx Instructions: Apply sparingly to both feet dulaglutide 3 mg/0.5 mL pen injector 3 mg SQ WK Rx Instructions: TAKES ON SATURDAYS Discontinued lisinopril 10 mg tablet 10 mg PO QAM Qty: 90 3RF Discharge Orders: Discharge Order (Routine); Ordered 01/26/22 Ordered By: Charla Adamson/Other Patient Handouts: Managing Type 2 Diabetes, How to Check Your Blood Sugar, Diabetes and Kidney Disease Admission Data Admit Date/Time: 01/25/22 11:35 Attending Provider: Guillermo Johnson Admit Provider: Lars Betts Primary Care Provider: Charlie Camarillo III Other Providers: Lars Betts ; Kavon Ann Other Interventions: Discharge Summary Assessment (RN) Last Done: 01/26/22 13:13 Supervising Physician Co-Signing Physician Notes I supervised Charla Polanco PA-C on the care of this patient. I did not see this patient in person as they were admitted <24 hours. The plan is as written in her note except for any following changes/exceptions: None Here for nephrolithiasis treatment. Urology has cleared him for discharge. No acute medical issues at this time. Coding Level of Care Code D/C DAY MANAGEMENT >30 MINS Diagnoses Nephrolithiasis N20.0 ADRI (acute kidney injury) N17.9 Hyperkalemia E87.5 Hypercholesterolemia E78.00 Hypertension I10 Type 2 diabetes mellitus E11.65 Diabetes mellitus complication status: with hyperglycemia Diabetes mellitus buttermaker insulin use: without buttermaker use
== END 2022-01-26 14:23 | disposition home or self-care (01) | DRG 661 ==
LOC: ED 08:18 → INTOOBSV 11:35 → SUATTDRO 11:35 → 3N 11:35

== ENCOUNTER 2022-03-26 22:35 | Observation (INO) ==
[2022-03-26] MEDS ORDERED: SODIUM CHLORIDE 0.9% 500 ML IV STA (22:41)
[2022-03-26 22:52] LABS: Basophils # (auto) 0.06 K/uL (0-0.2); Basophils % (auto) 0.5 %; Eosinophils # (auto) 0.49 K/uL (0-0.50); Eosinophils % (auto) 4.1 %; Hematocrit (blood only) 43.7 % (40.1-51.0); Immature Granulocytes # (auto) 0.06 K/uL (0.00-0.02); Immature Granulocytes % (auto) 0.5 %; Lymphocytes # (auto) 2.09 K/uL (1.2-3.4); Lymphocytes % (auto) 17.7 %; Mean Corpuscular Hemoglobin 30.1 pg (25.0-34.0); Mean Corpuscular Hgb Conc 34.3 g/dL (32.0-36.0); Mean Corpuscular Volume 87.8 fL (80.0-100.0); Mean Platelet Volume 9.7 fL (9.4-12.4); Monocytes # (auto) 1.01 K/uL (0.24-0.82); Monocytes % (auto) 8.5 %; Neutrophils # (auto) 8.13 K/uL (1.4-6.5); Neutrophils % (auto) 68.7 %; Platelet Count 212 K/uL (130-400); RDW Coefficient of Variation 11.9 % (11.5-14.5); RDW Standard Deviation 38.4 fL (36.4-46.3); Red Blood Count 4.98 M/uL (4.63-6.08); White Blood Count 11.84 K/ul (4.8-10.8)
[2022-03-26 23:12] LABS: Alanine Aminotransferase 26 U/L (7-52); Albumin Globulin Ratio 1.5 (0.9-2); Albumin Level 4.6 gm/dl (3.4-5.0); Alkaline Phosphatase 55 U/L (34-104); Anion Gap 8 (3-11); Aspartate Aminotransferase 15 U/L (13-39); Bilirubin,Total 0.5 mg/dl (0.2-1.0); Blood Urea Nitrogen 26 mg/dl (6-23); Calcium 9.5 mg/dl (8.5-10.1); Carbon Dioxide 26 mmol/L (21-32); Chloride 102 mmol/L (98-107); Est GFR (African American) 56.1 ml/min; Est GFR (Non-African American) 48.4 ml/min; Glucose 167 mg/dl (70-99(Fasting)); Sodium 136 mmol/L (136-145); Total Protein 7.6 gm/dl (6.0-8.3)
[2022-03-26] MEDS ORDERED: KETOROLAC 30 MG/ML VIAL IV ONE (23:52)
[2022-03-26] MEDS ORDERED: ONDANSETRON INJ 2 MG/ML 2 ML VIAL IV STA (23:59)
[2022-03-26] MEDS ORDERED: MoRPHine SULFATE 4 MG/ML 1 ML CARP\\VIAL IV PRN (23:59)
[2022-03-27] MEDS ORDERED: SODIUM CHLORIDE 0.9% 1000ML 1,000 ML IV SCH (00:15)
--- NOTE | 2022-03-27 00:19 | Emergency Department Note ---
History of Present Illness General Chief complaint: Kidney Stone Stated complaint: KIDNEY STONE, LEFT SIDE ABDOMINAL PAIN Time Seen by Provider: 03/26/22 23:59 History of Present Illness Maximum Pain Intensity: 8 This is a 51-year-old male presenting to the emergency department for evaluation of left flank pain that began around 5 PM this evening. The patient does have a history of kidney stones in the past and this feels similar to those episodes. He rates his pain an 8/10, episodic, and radiating into his groin. He has not had fever or chills. He is nauseated without vomiting. He has required stenting for his previous stones. Home Medications Medication Instructions Recorded Confirmed Type econazole 1 % topical cream 1 applic topical BID PRN ATHLETES 11/10/20 03/13/22 History FOOT metformin 1,000 mg tablet 1,000 mg PO BID #180 tabs 01/24/22 03/13/22 Rx dulaglutide 3 mg/0.5 mL 3 mg subcut Q7D 01/25/22 03/27/22 History subcutaneous pen injector amoxicillin 500 mg capsule 500 mg PO BID #180 caps 01/29/22 03/13/22 Rx atorvastatin 10 mg tablet 10 mg PO HS 02/01/22 03/27/22 History lisinopril 10 mg tablet 10 mg PO DAILY 02/15/22 03/13/22 History amoxicillin 500 mg capsule 500 mg PO BID 03/27/22 03/27/22 History hydrocodone 5 mg-acetaminophen 325 1 - 22 tab PO .EVERY 4-6 HOURS PRN 03/27/22 03/27/22 History mg tablet Pain phenazopyridine 200 mg tablet 200 mg PO Q8 PRN Pain 03/27/22 03/27/22 History Allergies Allergy/AdvReac Type Severity Reaction Status Date / Time No Known Allergies Allergy Verified 03/13/22 07:38 Past Med/Surg History Medical History Dysmetabolic syndrome X Fatty liver History of anesthesia reaction "ANESTHESIA NOT WORKING FOR HAND SURGERY, COULD FEEL EVERYTHING" History of asthma as a child History of COVID-19 11/2020, pcr>STILL HAS SOME LOSS OF SMELL. 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) History of tonsillectomy and adenoidectomy History of wisdom tooth extraction Hx of colonoscopy Hx of removal of cyst top of head x2-many years ago Family History Mother Diabetes Valvular heart disease Family history of diabetes mellitus Grandfather Prostate cancer Father Heart disease Metabolic syndrome Thyroid disease Family history of diabetes mellitus Sister Thyroid disease Denies family history of Ovarian cancer Myocardial infarction Breast cancer Colorectal cancer Social History Smoking Status: Never smoker Second Hand Exposure: No; Hx Alcohol Use: Yes Alcohol type: beer Hx Substance Use: No Preferred Language: Yakut 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 Ability: Effective Visual Impairment: No Limitations Hearing Ability: Normal Heel Painter Required: No Beliefs That Will Affect Care: None marital status: Current Living Situation: Spouse Current Living Situation Comment: , son-10yrs old, pets current occupational status: employed 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 [employer] Feels Safe at Home: Yes Dental Care, Regularly: Yes Physical Activity Frequency: 1-2 Times per Week Seatbelt Use: always Assistive Devices: Glasses Review of Systems A total of 10 systems reviewed and were otherwise negative Physical Exam Vital Signs Vital Signs - 24 hr 03/26/22 22:38 03/27/22 00:09 Temperature 36.1 C L Temperature Source Temporal Artery Scan Pulse Rate 101 H Pulse Rate [Apical] 98 H Respiratory Rate 20 16 Respiratory Effort / Characteristics Non-Labored Spontaneous Respiratory Depth Normal Blood Pressure 149/89 H Blood Pressure [Right Arm] 133/78 Blood Pressure Mean 109 Blood Pressure Mean [Right Arm] 96 Blood Pressure Position Sitting Pulse Oximetry 96 96 Sepsis Recent Fever Within 48 Hours No Sepsis New/Unexplained Change in Mental Status N/A Sepsis Action Taken by Nursing No Action Required VITALS: Vitals are noted on the nurse's note and reviewed by myself. Vital signs stable. GENERAL: Well-developed, well-nourished, white male, who is in no acute distress and resting comfortably. Patient is cooperative with the examination. HEAD: Normocephalic atraumatic. HEART: Regular rate and rhythm without murmurs gallops or rubs. LUNGS: Clear to auscultation bilaterally without wheezes, rales or rhonchi. No retractions or accessory muscle use. ABDOMEN: Positive normal bowel sounds x 4. Soft, nontender, without masses or organomegaly. No guarding or rebound tenderness. MUSCULOSKELETAL: No muscle atrophy, erythema, or edema noted. Full range of motion in all extremities. Course Administered Medications Lactated Ringer's (Lr) 1,000 mls @ 125 mls/hr IV .Q8H YAN Stop: 03/27/22 20:10 Last Admin: 03/27/22 04:50 Dose: 125 mls/hr Documented By: AMBER Insulin Aspart (Insulin Aspart Per Unit) 0 units SC Q6 YAN Stop: 04/26/22 05:59 Last Admin: 03/27/22 04:48 Dose: Not Given Documented By: AMBER Discontinued Medications Sodium Chloride (Nss) 500 mls @ 999 mls/hr IV .Q31M STA Stop: 03/26/22 23:11 Last Infusion: 03/27/22 01:34 Dose: 0 mls/hr Documented By: Admin: 03/26/22 23:58 Dose: 999 mls/hr Documented By: JR Sodium Chloride (Nss 1000ml) 1,000 mls @ 999 mls/hr IV .Q1H1M YAN Stop: 03/27/22 01:15 Last Infusion: 03/27/22 03:00 Dose: 0 mls/hr Documented By: Admin: 03/27/22 00:58 Dose: 999 mls/hr Documented By: JR Ketorolac Tromethamine (Ketorolac 30 Mg/Ml Vial) 30 mg IV NOW ONE Stop: 03/26/22 23:53 Last Admin: 03/26/22 23:58 Dose: 30 mg Documented By: JR Morphine Sulfate (Morphine Sulfate 4 Mg/Ml 1 Ml Carp\\Vial) 4 mg IV Q30M PRN PRN Reason: Pain Stop: 04/09/22 23:58 Last Admin: 03/27/22 03:32 Dose: 4 mg Documented By: EMB Ondansetron HCl (Ondansetron Inj 2 Mg/Ml 2 Ml Vial) 4 mg IV NOW STA Stop: 03/27/22 00:00 Last Admin: 03/27/22 03:32 Dose: 4 mg Documented By: JR Medical Decision Making Differential Diagnosis Differential diagnosis: Etiologies such as shingles, pyelonephritis/UTI, renal colic, appendicitis, diverticulitis, mesenteric ischemia, torsion, aortic pathology, infections, inflammatory bowel disease, bowel obstruction, PUD, biliary pathology, as well as others were entertained. Laboratory Data Result diagrams: 03/26/22 22:40 03/26/22 22:40 Lab Results 03/26/22 03/26/22 Range/Units 22:40 22:40 WBC 11.84 H (4.8-10.8) K/ul RBC 4.98 (4.63-6.08) M/uL Hgb 15.0 (14.0-18.0) g/dl Hct 43.7 (40.1-51.0) % MCV 87.8 (80.0-100.0) fL MCH 30.1 (25.0-34.0) pg MCHC 34.3 (32.0-36.0) g/dL RDW Std Deviation 38.4 (36.4-46.3) fL RDW Coeff of Sheldon 11.9 (11.5-14.5) % Plt Count 212 (130-400) K/uL MPV 9.7 (9.4-12.4) fL Immature Gran % (Auto) 0.5 % Neut % (Auto) 68.7 % Lymph % (Auto) 17.7 % Phillips % (Auto) 8.5 % Eos % (Auto) 4.1 % Baso % (Auto) 0.5 % Neut # (Auto) 8.13 H (1.4-6.5) K/uL Lymph # (Auto) 2.09 (1.2-3.4) K/uL Phillips # (Auto) 1.01 H (0.24-0.82) K/uL Eos # (Auto) 0.49 (0-0.50) K/uL Baso # (Auto) 0.06 (0-0.2) K/uL Immature Gran # (Auto) 0.06 H (0.00-0.02) K/uL Sodium 136 (136-145) mmol/L Potassium 5.0 (3.5-5.1) mmol/L Chloride 102 (98-107) mmol/L Carbon Dioxide 26 (21-32) mmol/L Anion Gap 8 (3-11) BUN 26 H (6-23) mg/dl Creatinine 1.62 H (0.6-1.4) mg/dl Est Cr Clr Drug Dosing Not Reportable Est GFR ( Amer) 56.1 ml/min Est GFR (Non-Af Amer) 48.4 ml/min BUN/Creatinine Ratio 16.0 (10-20) Glucose 167 H (70-99(Fasting)) mg/dl Calcium 9.5 (8.5-10.1) mg/dl Total Bilirubin 0.5 (0.2-1.0) mg/dl AST 15 (13-39) U/L ALT 26 (7-52) U/L Alkaline Phosphatase 55 (34-104) U/L Total Protein 7.6 (6.0-8.3) gm/dl Albumin 4.6 (3.4-5.0) gm/dl Globulin 3.0 (2.5-4.0) gm/dl Albumin/Globulin Ratio 1.5 (0.9-2) Imaging Data Radiologist's Impression: Preliminary Findings Only See Final Report For Complete Findings CT ABDOMEN & PELVIS Without Contrast: Hepatic steatosis. Normal gallbladder, spleen, adrenal glands, and pancreas. Obstructing 6 mm left UPJ calculus. Mild hydronephrosis of the left kidney. Nonobstructing 11 mm right mid pole renal calculus. Normal urinary bladder. Diverticulosis. No bowel obstruction. No acute appendicitis. IMPRESSION: Obstructing 6 mm left UPJ calculus. Mild hydronephrosis of the left kidney. Nonobstructing 11 mm right mid pole renal calculus. Radiologist:Filipe Chaidez MD [facility] Narrative Physical exam and history were performed. Nursing notes, EMR, and Medication List were personally reviewed. Patient appears to have left flank pain bringing him to the ER. The patient arrives during a period of very high ER volume and acuity with extended wait times. Nursing protocol orders have been initiated. The patient's blood work is as above and was reviewed. He does not have a significantly elevated white blood cell count, gross anemia, bandemia, or significant electrolyte imbalance. Transaminases are not diagnostic. He does have a slight elevation of his creatinine at 1.62. He has not yet urinated, and was given additional fluids. His pain is controlled with Toradol, morphine, and Zofran. CT scan was reviewed by myself and radiology and does show a 6 mm left UPJ obstructing kidney stone with hydronephrosis. Over the patient does not appear well for discharge home. He has complicated kidney stones in the past. The case was discussed with the on-call hospitalist team. Please see their dictation for further patient course, plan, disposition. The chart was completed utilizing [employer] Speech Voice Recognition Software. Grammatical errors, random word insertions, pronoun errors, and incomplete sentences are an occasional consequence of this system due to software limitations, ambient noise, and hardware issues. Any formal questions or concerns about the content, text, or information contained within the body of this dictation should be directly addressed to the provider for clarification. . Impression & Plan Calculus of left ureter, Acute flank pain Discharge Plan Visit Data Chief Complaint: Kidney Stone Stated Complaint: KIDNEY STONE, LEFT SIDE ABDOMINAL PAIN ED Provider: Robert Tapia ED Midlevel Provider: Chevy Jerry Discharge Problem: Calculus of left ureter, Acute flank pain Patient Disposition: Admitted As Inpatient Discharge Instructions Interventions: ED Discharge Assessment Last Done: 03/27/22 04:04
--- NOTE | 2022-03-27 00:29 | History & Physical Report ---
Date of Service March 27, 2022 Assessment & Plan (1) Renal stone: Plan: Admit to medical Keep NPO IVF wtih LR at 125mL/hr x 2 liters Toradol, Morphine and Zofran PRN Flomax daily Urology consultation appreciated Ceftriaxone 2gm IV daily - awaiting UA (2) Hypercholesterolemia: Plan: Chronic -Continue Atorvastatin (3) Hypertension: Plan: Blood pressure mildly elevated -Hold Lisinopril for now -Repeat chemistry in AM -Montior BP (4) Type 2 diabetes mellitus: Plan: Chronic. Improving -Lantus 5u BID -ISS History of Present Illness Chief Complaint: left flank pain Primary Care Provider: Charlie Camarillo, ALICIA, KLARISSA Chris Hall is a 51yo male with history of DM, HTN, HLP and prior renal stones presenting with 7+ hours of left flank pain. Pain is intermittent, severe, 8/10 with radiation into the anterior abdomen. Similar to prior renal stones. He had cystoscopy with stent placement in January 2022 No additional complaints. He denies fever, chills, chest pain, cough, SOB. IN the ER he is afebrile, HD stable, non-toxic in appearance. ER Course: Toradol Allergies Allergy/AdvReac Type Severity Reaction Status Date / Time No Known Allergies Allergy Verified 03/13/22 07:38 Home Medications Medication Instructions Recorded Confirmed Type econazole 1 % topical cream 1 applic topical BID PRN ATHLETES 11/10/20 03/13/22 History FOOT metformin 1,000 mg tablet 1,000 mg PO BID #180 tabs 01/24/22 03/13/22 Rx dulaglutide 3 mg/0.5 mL 3 mg subcut Q7D 01/25/22 03/27/22 History subcutaneous pen injector amoxicillin 500 mg capsule 500 mg PO BID #180 caps 01/29/22 03/13/22 Rx atorvastatin 10 mg tablet 10 mg PO HS 02/01/22 03/27/22 History lisinopril 10 mg tablet 10 mg PO DAILY 02/15/22 03/13/22 History amoxicillin 500 mg capsule 500 mg PO BID 03/27/22 03/27/22 History hydrocodone 5 mg-acetaminophen 325 1 - 22 tab PO .EVERY 4-6 HOURS PRN 03/27/22 03/27/22 History mg tablet Pain phenazopyridine 200 mg tablet 200 mg PO Q8 PRN Pain 03/27/22 03/27/22 History Past Med/Surg History Medical History Dysmetabolic syndrome X Fatty liver History of anesthesia reaction "ANESTHESIA NOT WORKING FOR HAND SURGERY, COULD FEEL EVERYTHING" History of asthma as a child History of COVID-19 11/2020, pcr>STILL HAS SOME LOSS OF SMELL. 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) History of tonsillectomy and adenoidectomy History of wisdom tooth extraction Hx of colonoscopy Hx of removal of cyst top of head x2-many years ago Family History Mother Diabetes Valvular heart disease Family history of diabetes mellitus Grandfather Prostate cancer Father Heart disease Metabolic syndrome Thyroid disease Family history of diabetes mellitus Sister Thyroid disease Denies family history of Ovarian cancer Myocardial infarction Breast cancer Colorectal cancer Social History Smoking Status: Never smoker Second Hand Exposure: No; Hx Alcohol Use: Yes Alcohol type: beer Hx Substance Use: No Preferred Language: Djiboutian 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 Ability: Effective Visual Impairment: No Limitations Hearing Ability: Normal Acid Cleaner Required: No Beliefs That Will Affect Care: None marital status: Current Living Situation: Spouse and Family Current Living Situation Comment: Home with spouse, 10 yr old son, cat, and dog current occupational status: employed 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 [employer] Feels Safe at Home: Yes Dental Care, Regularly: Yes Physical Activity Frequency: 1-2 Times per Week Seatbelt Use: always Assistive Devices: Glasses Review of Systems Review of Systems: All systems reviewed & are unremarkable except as noted in HPI & below Physical Exam Physical Exam: General: patient resting comfortably, NAD, non-toxic in appearance, AA&O x 4 Skin: warm, dry, intact, no rashes or lesions HEENT: NC/AT, PERRL, EOMI, anicteric sclera, conjunctiva without injection, external ear normal to inspection and nontender, nares patent, moist mucus membranes, dentition intact, no oropharyngeal lesions, neck supple, trachea midline, no LAD, no thyromegaly, no JVD Heart: +S1/S2, regular, no m/r/g Lungs: equal air entry bilaterally, no rales/rhonchi/wheezes Abd: +BS, soft, NT/ND, no masses/organomegaly/ascites, left flank tenderness Ext: warm, 2+ pulses in UE/LE bilaterally, no clubbing/cyanosis or edema Neuro: nonfocal, patient AA&O x 4, speech intact, no facial droop, moving all extremities on command with equal strength 5/5 Results & Data Results & Data ([facility]) Vital Signs (Past 12 Hours) Vital Signs Temp Pulse Resp BP Pulse Ox 03/26/22 22:38 36.1 C L 101 H 20 149/89 H 96 Laboratory Results Laboratory Results WBC 11.84 K/ul (4.8-10.8) H 03/26/22 22:40 RBC 4.98 M/uL (4.63-6.08) 03/26/22 22:40 Hgb 15.0 g/dl (14.0-18.0) 03/26/22 22:40 Hct 43.7 % (40.1-51.0) 03/26/22 22:40 MCV 87.8 fL (80.0-100.0) 03/26/22 22:40 MCH 30.1 pg (25.0-34.0) 03/26/22 22:40 MCHC 34.3 g/dL (32.0-36.0) 03/26/22 22:40 RDW Std Deviation 38.4 fL (36.4-46.3) 03/26/22 22:40 RDW Coeff of Sheldon 11.9 % (11.5-14.5) 03/26/22 22:40 Plt Count 212 K/uL (130-400) 03/26/22 22:40 MPV 9.7 fL (9.4-12.4) 03/26/22 22:40 Immature Gran % (Auto) 0.5 % 03/26/22 22:40 Neut % (Auto) 68.7 % 03/26/22 22:40 Lymph % (Auto) 17.7 % 03/26/22 22:40 [place] % (Auto) 8.5 % 03/26/22 22:40 Eos % (Auto) 4.1 % 03/26/22 22:40 Baso % (Auto) 0.5 % 03/26/22 22:40 Neut # (Auto) 8.13 K/uL (1.4-6.5) H 03/26/22 22:40 Lymph # (Auto) 2.09 K/uL (1.2-3.4) 03/26/22 22:40 [place] # (Auto) 1.01 K/uL (0.24-0.82) H 03/26/22 22:40 Eos # (Auto) 0.49 K/uL (0-0.50) 03/26/22 22:40 Baso # (Auto) 0.06 K/uL (0-0.2) 03/26/22 22:40 Immature Gran # (Auto) 0.06 K/uL (0.00-0.02) H 03/26/22 22:40 Sodium 136 mmol/L (136-145) 03/26/22 22:40 Potassium 5.0 mmol/L (3.5-5.1) 03/26/22 22:40 Chloride 102 mmol/L (98-107) 03/26/22 22:40 Carbon Dioxide 26 mmol/L (21-32) 03/26/22 22:40 Anion Gap 8 (3-11) 03/26/22 22:40 BUN 26 mg/dl (6-23) H 03/26/22 22:40 Creatinine 1.62 mg/dl (0.6-1.4) H 03/26/22 22:40 Est Cr Clr Drug Dosing Not Reportable 03/26/22 22:40 Est GFR ( Amer) 56.1 ml/min 03/26/22 22:40 Est GFR (Non-Af Amer) 48.4 ml/min 03/26/22 22:40 BUN/Creatinine Ratio 16.0 (10-20) 03/26/22 22:40 Glucose 167 mg/dl (70-99(Fasting)) H 03/26/22 22:40 Calcium 9.5 mg/dl (8.5-10.1) 03/26/22 22:40 Total Bilirubin 0.5 mg/dl (0.2-1.0) 03/26/22 22:40 AST 15 U/L (13-39) 03/26/22 22:40 ALT 26 U/L (7-52) 03/26/22 22:40 Alkaline Phosphatase 55 U/L (34-104) 03/26/22 22:40 Total Protein 7.6 gm/dl (6.0-8.3) 03/26/22 22:40 Albumin 4.6 gm/dl (3.4-5.0) 03/26/22 22:40 Globulin 3.0 gm/dl (2.5-4.0) 03/26/22 22:40 Albumin/Globulin Ratio 1.5 (0.9-2) 03/26/22 22:40 PG Care Time/CCT Total # of Minutes Spent Total Time Spent with Patient: Total time spent is greater than 50% in coordination of care (as documented) at patient's floor/unit and/or counseling patient: Coding Level of Care Code 62460 Initial Inpt Care Lvl 2 Diagnoses Renal stone N20.0 Hypercholesterolemia E78.00 Hypertension I10 Type 2 diabetes mellitus E11.65 Diabetes mellitus fdc insulin use: without terminal gauger use Diabetes mellitus complication status: with hyperglycemia (1) Type 2 diabetes mellitus Diabetes mellitus terminal gauger insulin use: without fdc use Diabetes mellitus complication status: with hyperglycemia Qualified Code(s): E11.65 - Type 2 diabetes mellitus with hyperglycemia
--- NOTE | 2022-03-27 01:04 | Urology Consultation ---
Date of Consultation March 27, 2022 Assessment & Plan (1) Renal stone: I discussed with the treating emergency room physician and the patient is being made on the hospitalist service. We recommend proceeding as follows: Provide analgesics provide antiemetics Provide IV fluid for hydration Follow serial labs Obtain a urine analysis and culture if indicated Initiate Flomax for expulsive therapy Implement n.p.o. status. The patient will be reassessed in the morning to determine if cystoscopy with ureteral stent will be required. At the present time the patient is afebrile with only a slight leukocytosis. Therefore I do not feel patient requires an urgent procedure at this time Additional recommendations be forthcoming based on his clinical course as it unfolds History of Present Illness Reason for Consultation: Nephrolithiasis History of Present Illness This is a 51-year-old male with a known history of nephrolithiasis. The patient most recently underwent cystoscopy with left ureteral stent placement in January of this year. Patient notes that he did not require lithotripsy as when his stent was removed multiple small kidney stones were expelled at the same time. Patient notes that he was doing well since this procedure until approximately 5:00 PM this evening when he developed some left-sided flank pain that radiated to his abdomen. He denies any dysuria or hematuria. He also did not report any nausea or vomiting. He specifically denies any fevers, shakes, or chills. Because of his symptomatology he presented to the emergency department. Since arrival to the hospital the patient has had labs and imaging which independent reviewed. He did have a CT scan of the abdomen and pelvis that showed he had an obstructing 6 mm left ureteropelvic junction kidney stone with mild hydronephrosis. He also had a nonobstructing 11 mm kidney stone at the pole of the right kidney. Labs include a CBC her white blood cell count was 11.8. Hemoglobin, hematocrit, and platelet count were normal. Chemistry profile showed sodium and potassium are both normal. The patient's BUN and creatinine were 26 and 1.6. Review of records show the patient's creatinine runs anywhere from 1.2-1.8. A COVID test is pending. Since arrival to the emergency department the patient has received analgesics in the form of Toradol and morphine. He has received hydration with normal saline solution. At the time of my interview he was resting comfortably in bed in no distress. Allergies Allergy/AdvReac Type Severity Reaction Status Date / Time No Known Allergies Allergy Verified 03/13/22 07:38 Home Medications Medication Instructions Recorded Confirmed Type econazole 1 % topical cream 1 applic topical BID PRN ATHLETES 11/10/20 03/13/22 History FOOT metformin 1,000 mg tablet 1,000 mg PO BID #180 tabs 01/24/22 03/13/22 Rx dulaglutide 3 mg/0.5 mL 3 mg subcut Q7D 01/25/22 03/27/22 History subcutaneous pen injector amoxicillin 500 mg capsule 500 mg PO BID #180 caps 01/29/22 03/13/22 Rx atorvastatin 10 mg tablet 10 mg PO HS 02/01/22 03/27/22 History lisinopril 10 mg tablet 10 mg PO DAILY 02/15/22 03/13/22 History amoxicillin 500 mg capsule 500 mg PO BID 03/27/22 03/27/22 History hydrocodone 5 mg-acetaminophen 325 1 - 22 tab PO .EVERY 4-6 HOURS PRN 03/27/22 03/27/22 History mg tablet Pain phenazopyridine 200 mg tablet 200 mg PO Q8 PRN Pain 03/27/22 03/27/22 History Patient History Medical History Dysmetabolic syndrome X Fatty liver History of anesthesia reaction "ANESTHESIA NOT WORKING FOR HAND SURGERY, COULD FEEL EVERYTHING" History of asthma as a child History of COVID-19 11/2020, pcr>STILL HAS SOME LOSS OF SMELL. 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) History of tonsillectomy and adenoidectomy History of wisdom tooth extraction Hx of colonoscopy Hx of removal of cyst top of head x2-many years ago Family History Mother Diabetes Valvular heart disease Family history of diabetes mellitus Grandfather Prostate cancer Father Heart disease Metabolic syndrome Thyroid disease Family history of diabetes mellitus Sister Thyroid disease Denies family history of Ovarian cancer Myocardial infarction Breast cancer Colorectal cancer Social History Smoking Status: Never smoker Second Hand Exposure: No; Hx Alcohol Use: Yes Alcohol type: beer Hx Substance Use: No Preferred Language: Georgian 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 Ability: Effective Visual Impairment: No Limitations Hearing Ability: Normal 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: No Beliefs That Will Affect Care: None marital status: Current Living Situation: Spouse and Family Current Living Situation Comment: Home with spouse, 10 yr old son, cat, and dog current occupational status: employed 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 [employer] Feels Safe at Home: Yes Dental Care, Regularly: Yes Physical Activity Frequency: 1-2 Times per Week Seatbelt Use: always Assistive Devices: Glasses Review of Systems Constitutional: no fever and no chills Eyes: no eye pain Ear, Nose, Mouth, Throat: no ear pain Respiratory: no cough and no dyspnea Cardiovascular: no chest pain Gastrointestinal: + abdominal pain (Radiating from left flank); no nausea and no vomiting Genitourinary: + as per Subjective / HPI Musculoskeletal: + back pain (Left flank) Integumentary: no rash Neurologic: no localized weakness Physical Exam Constitutional: WD/WN, vitals as above Eyes: no conjunctival abnormality ENMT: Ears: no hearing impairment and no external ear abnormality Mouth: no oropharynx abnormality Neck: trachea midline Respiratory: normal respiratory effort; no respiratory distress and no labored breathing Cardiovascular: Rate/Rhythm: regular rate and regular rhythm Gastrointestinal (Abdomen): Abdomen is soft and nondistended. It is nonrigid. There is no rebound tenderness or guarding. There is minimal pain with palpation on the left side. Musculoskeletal: No calf tenderness Skin: no rashes Neurologic: moves all extremities Psychiatric: A+Ox3, euthymic affect Genitourinary: no CVA tenderness (No CVA tenderness noted at the time of my exam) Results & Data ([facility]) Vital Signs (Past 12 Hours) Vital Signs Temp Pulse Pulse Resp BP BP Pulse Ox 03/27/22 00:09 98 H 16 133/78 96 12/12/22 22:38 36.1 C L 101 H 20 149/89 H 96 PG Care Time/CCT Total # of Minutes Spent Total Time Spent with Patient: Total time spent is greater than 50% in coordination of care (as documented) at patient's floor/unit and/or counseling patient: Coding Level of Care Code 21375 Inpt Consult Level 5 Diagnoses Renal stone N20.0
[2022-03-27] MEDS ORDERED: CARBOHYDRATES FOR HYPOGLYCEMIA PO PRN (04:11)
[2022-03-27] MEDS ORDERED: KETOROLAC 30 MG/ML VIAL IV PRN (04:11)
[2022-03-27] MEDS ORDERED: GLUCAGON FOR INJ 1 MG VIAL SQ PRN (04:11)
[2022-03-27] MEDS ORDERED: GLUCOSE 40% GEL 15 GM TUBE PO PRN (04:11)
[2022-03-27] MEDS ORDERED: ONDANSETRON INJ 2 MG/ML 2 ML VIAL IV PRN ×2 (04:11→10:34)
[2022-03-27] MEDS ORDERED: MoRPHine SULFATE 2 MG/ML CARP IV PRN (04:11)
[2022-03-27] MEDS ORDERED: GLUCOSE 10 TAB/TUBE PO PRN (04:11)
[2022-03-27] MEDS ORDERED: ACETAMINOPHEN 325 MG TAB PO PRN (04:11)
[2022-03-27] MEDS ORDERED: MoRPHine SULFATE 4 MG/ML 1 ML CARP\\VIAL IV PRN (04:11)
[2022-03-27] MEDS ORDERED: DEXTROSE 50% 50 ML SYRINGE IV PRN (04:11)
[2022-03-27 04:46] LABS: Appearance Urine Turbid (Clear); Bacteria Urine Automated Negative (Negative); Bilirubin Urine Negative (Negative); Blood Urine 3+ (Negative); Color Urine Yellow; Epithelial Cell Urine Auto 0-5 /lpf (0-5); Glucose Urine UA Negative (Negative); Ketones Urine Trace (Negative); Leukocyte Esterase Urine Negative (Negative); Nitrite Urine Negative (Negative); Protein Urine Trace (Negative); RBC Urine Automated 0-4 /hpf (0-4); Specific Gravity Urine 1.021 (1.000-1.030); Urobilinogen Urine Negative (Negative)
[2022-03-27] MEDS: INSULIN ASPART PER UNIT SC SCH ×2 (04:48→12:42)
[2022-03-27] MEDS: LACTATED RINGER'S 1,000 ML IV SCH ×2 (04:50→11:50)
[2022-03-27 05:03] LABS: Uric Acid Crystals Urine Present (None Prsent)
--- NOTE | 2022-03-27 07:39 | Hospitalist Progress Note ---
Date of Service March 27, 2022 Assessment & Plan (1) Calculus of left ureter: (2) Acute flank pain: (3) Renal stone: Plan Chris is a 51 y/o male Admission and Anticipated Discharge Date Admission Date: March 27, 2022 Review of Systems Review of Systems: As per HPI Results & Data Results & Data ([facility]) Vital Signs (Past 12 Hours) Vital Signs Temp Pulse Pulse Pulse Resp BP BP 03/27/22 07:24 36.6 C 75 16 99/65 L 03/27/22 05:49 03/27/22 04:24 03/27/22 04:24 36.4 C L 84 20 123/74 03/27/22 04:11 36.4 C L 84 20 123/74 03/27/22 03:00 84 17 134/70 03/27/22 00:09 98 H 16 133/78 03/26/22 22:38 36.1 C L 101 H 20 149/89 H Pulse Ox O2 Del Method 03/27/22 07:24 95 Room Air 03/27/22 05:49 Room Air 03/27/22 04:24 Room Air 03/27/22 04:24 96 Room Air 03/27/22 04:11 96 Room Air 03/27/22 03:00 93 03/27/22 00:09 96 03/26/22 22:38 96 Resident Activity Tracking Resident Involvement: Resident Care Provided Care Provided: Adult Hospital Medicine
--- NOTE | 2022-03-27 08:23 | Urology Progress Note ---
Date of Service March 27, 2022 Assessment & Plan (1) Calculus of left ureter: (2) Acute flank pain: Plan 51yo M admitted with intractable left flank pain and ADRI secondary to an obstructing 6mm left UPJ stone. -Afebrile and hemodynamically stable. -Labs reviewed 03/26- mild leukocytosis, creatinine 1.62. -UA not overly suspicious for infection, on IV Ceftriaxone. -Given his intractable pain and ADRI, will plan to proceed to the OR today for for cystoscopy, left retrograde pyelogram, left ureteral stent placement. -Risks and benefits to be reviewed with patient by Dr. Villegas. OR notified. Covid test negative. Covered with scheduled IV Ceftriaxone. -Keep NPO. -Continue supportive care, tamsulosin, and prn pain management. -Urology will follow. Admission and Anticipated Discharge Date Admission Date: March 27, 2022 Subjective Patient examined at bedside this AM. Asleep on arrival, awakened to name. No acute distress. Denies significant pain at present. Reports pain improved with pain medication around 4 AM. No fevers or chills. Denies nausea or vomiting. Voiding without issue. Denies hematuria or dysuria. Denies any noticeable stone passage. Has been NPO. Review of Systems Constitutional: as per Subjective / HPI Gastrointestinal: as per Subjective / HPI Genitourinary: + as per Subjective / HPI Physical Exam Constitutional: no acute distress Respiratory: no respiratory distress and no labored breathing Neurologic: awake Psychiatric: Orientation: alert and oriented x 3 Results & Data ([facility] [place]) Vital Signs (Past 12 Hours) Vital Signs Temp Pulse Pulse Pulse Resp BP BP 03/27/22 07:24 36.6 C 75 16 99/65 L 03/27/22 05:49 03/27/22 04:24 03/27/22 04:24 36.4 C L 84 20 123/74 03/27/22 04:11 36.4 C L 84 20 123/74 03/27/22 03:00 84 17 134/70 03/27/22 00:09 98 H 16 133/78 03/26/22 22:38 36.1 C L 101 H 20 149/89 H Pulse Ox O2 Del Method 03/27/22 07:24 95 Room Air 03/27/22 05:49 Room Air 03/27/22 04:24 Room Air 03/27/22 04:24 96 Room Air 03/27/22 04:11 96 Room Air 03/27/22 03:00 93 03/27/22 00:09 96 03/26/22 22:38 96 PG Care Time/CCT Total # of Minutes Spent Total Time Spent with Patient: Total time spent is greater than 50% in coordination of care (as documented) at patient's floor/unit and/or counseling patient: Coding Level of Care Code None Diagnoses Calculus of left ureter N20.1 Acute flank pain R10.9
[2022-03-27] MEDS ORDERED: cefTRIAXone SODIUM 2,000 MG in DEXTROSE 5% 50 ML IV SCH (09:00)
[2022-03-27] MEDS ORDERED: TAMSULOSIN HCL 0.4 MG CAP PO SCH (09:00)
[2022-03-27] MEDS ORDERED: LANTUS PER UNIT CHARGE SQ SCH (09:00)
--- NOTE | 2022-03-27 09:48 | CT Scan Report ---
ABDOMEN AND PELVIS CT WITHOUT CONTRAST CT DOSE: 717.52 mGy.cm HISTORY: Left flank pain TECHNIQUE: Multiaxial CT images of the abdomen and pelvis were performed without contrast. A dose lo wering technique was utilized adhering to the principles of ALARA. COMPARISON STUDY: Abdomen and pelvis CT 01/25/2022. FINDINGS: Stable 3 mm subpleural nodule within the right middle lobe on image 1. Otherwise, the lung bases are clear. No pneumoperitoneum. No pneumatosis. 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 No evidence for articular collapse. Small fat-containing umbilical/ supra umbilical hernia again noted. There is a 1.8 cm lipoma within the gastric antrum, unchanged. He patic steatosis. The unenhanced gallbladder, pancreas, and spleen are unremarkable. Normal adrenal gl ands. Stable right-sided nephrolithiasis. Bilateral peripelvic cysts are again noted. There is a stab le 4 cm hypodense lesion within the right kidney likely representing a cyst. There is a 5 mm obstruct ing stone within the left ureteropelvic junction resulting in mild left hydronephrosis. This is simil ar to the prior study. There is left perinephric edema again noted. No retroperitoneal lymphadenopath y. Normal caliber abdominal aorta. 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 No pelvic lymphadenopathy. Normal bladder. Suboptimal evaluation for bowel pathology due to the lack of intravenous and oral con trast. However, there is no definite bowel wall thickening or obstruction. Normal appendix. IMPRESSION: 1. Mild left hydronephrosis secondary to an obstructing 5 mm stone within the left ureteropelvic junc tion. This is similar to the prior study. 2. Stable right-sided nephrolithiasis. 3. Additional findings as described above. ACT 112: Negative or not required by law. Electronically signed by: Angelito Barnett M.D. 03/27/2022 9:46 AM
[2022-03-27] MEDS ORDERED: fentaNYL citrate 100 MCG/2 ML VIAL ONE (09:58)
[2022-03-27] MEDS ORDERED: LIDOCAINE 2% MPF LOCAL 5 ML VIAL INFIL ONE (09:58)
[2022-03-27] MEDS ORDERED: PROPOFOL IV EMULSION 10 MG/ML 20 ML VIAL IV ONE (09:58)
[2022-03-27] MEDS ORDERED: MIDAZOLAM HCL 1 MG/ML 2ML VIAL ONE (09:58)
--- NOTE | 2022-03-27 10:23 | Anesthesiology Consultation ---
Date of Service March 27, 2022 Assessment & Plan (1) Encounter for pre-operative examination: Chart Review Chart Review: Acceptable Risk for Surgery History Surgery Operation Date: 03/27/22 12:45 Proposed Procedures p Cystoscopy Left Retrograde Pyelogram with Stent Placement - Malik Villegas MD Height/Weight Height: 6 ft Weight: 101.2 kg Allergies Allergy/AdvReac Type Severity Reaction Status Date / Time No Known Allergies Allergy Verified 03/13/22 07:38 Medications Home Medications Medication Instructions Recorded Confirmed Last Taken econazole 1 % topical cream 1 applic topical BID PRN ATHLETES 11/10/20 03/13/22 Unknown FOOT metformin 1,000 mg tablet 1,000 mg PO BID #180 tabs 01/24/22 03/13/22 02/04/22 dulaglutide 3 mg/0.5 mL 3 mg subcut Q7D 01/25/22 03/27/22 03/24/22 subcutaneous pen injector amoxicillin 500 mg capsule 500 mg PO BID #180 caps 01/29/22 03/13/22 02/05/22 07:40 atorvastatin 10 mg tablet 10 mg PO HS 02/01/22 03/27/22 03/25/22 lisinopril 10 mg tablet 10 mg PO DAILY 02/15/22 03/13/22 Unknown amoxicillin 500 mg capsule 500 mg PO BID 03/27/22 03/27/22 Unknown hydrocodone 5 mg-acetaminophen 325 1 - 22 tab PO .EVERY 4-6 HOURS PRN 03/27/22 03/27/22 Unknown mg tablet Pain phenazopyridine 200 mg tablet 200 mg PO Q8 PRN Pain 03/27/22 03/27/22 Unknown Active Medications Generic Name Dose Route Start Last Admin Trade Name Viri PRN Reason Stop Dose Admin Lactated Ringer's 1,000 mls @ 125 mls/hr 03/27/22 04:11 03/27/22 04:50 Lr IV 03/27/22 20:10 125 mls/hr .Q8H YAN Administration Ceftriaxone Sodium 2,000 mg/ 70 mls @ 100 mls/hr 03/27/22 09:00 03/27/22 09:28 Dextrose IV 04/06/22 08:59 Infused Q24H YAN Infusion Protocol Insulin Aspart 0 units 03/27/22 06:00 03/27/22 04:48 Insulin Aspart Per Unit SC 04/26/22 05:59 Not Given Q6 YAN Insulin Glargine 5 units 03/27/22 09:00 03/27/22 08:44 Lantus Per Unit Charge SQ 04/26/22 08:59 Not Given BID [facility] Ketorolac Tromethamine 30 mg 03/27/22 04:11 03/27/22 09:30 Ketorolac 30 Mg/Ml Vial IV 04/01/22 04:10 30 mg Q6H PRN Administration Pain & Pre PT Tamsulosin HCl 0.4 mg 03/27/22 09:00 03/27/22 08:34 Tamsulosin Hcl 0.4 Mg Cap PO 04/26/22 08:59 0.4 mg QAM YAN Administration Past Medical History Medical History Dysmetabolic syndrome X Fatty liver History of anesthesia reaction "ANESTHESIA NOT WORKING FOR HAND SURGERY, COULD FEEL EVERYTHING" History of asthma as a child History of COVID-19 11/2020, pcr>STILL HAS SOME LOSS OF SMELL. mid-12/2021, home test>body aches, runny nose>resolved 9 days, "still has loss of smell and some things still don't taste good" History of kidney stones Hypercholesterolemia Hypertension Obese Recurrent cellulitis REASON FOR DAILY AMOXICILLIN-LT LEG Renal cyst pt denies Splenomegaly pt denies Tinea pedis Type 2 diabetes mellitus Uncontrolled type 2 diabetes mellitus Vitiligo Past Family History Family History Mother Diabetes Valvular heart disease Family history of diabetes mellitus Grandfather Prostate cancer Father Heart disease Metabolic syndrome Thyroid disease Family history of diabetes mellitus Sister Thyroid disease Denies family history of Ovarian cancer Myocardial infarction Breast cancer Colorectal cancer Past Surgical History Surgical History H/O umbilical hernia repair History of cystoscopy WITH STONE REMOVAL 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) History of tonsillectomy and adenoidectomy History of wisdom tooth extraction Hx of colonoscopy Hx of removal of cyst top of head x2-many years ago Social History Smoking Status: Never smoker Do You Dip or Chew Tobacco: No Hx Alcohol Use: Yes Alcohol type: beer alcohol intake frequency: a few times a week Hx Substance Use: No substance use type: does not use Physical Exam Vital Signs Last Vital Signs Temp 36.6 C 03/27/22 07:24 Pulse 81 03/27/22 08:57 Resp 16 03/27/22 07:24 BP 110/71 03/27/22 08:57 Pulse Ox 95 03/27/22 08:57 O2 Del Method 03/27/22 08:57 Testing Laboratory Results 03/26/22 22:40 03/26/22 22:40 Urine Color Yellow 03/27/22 Unknown Urine Appearance Turbid (Clear) A 03/27/22 Unknown Urine pH 5.0 (4.5-7.5) 03/27/22 Unknown Ur Specific [place] 1.021 (1.000-1.030) 03/27/22 Unknown Urine Protein Trace (Negative) H 03/27/22 Unknown Urine Glucose (UA) Negative (Negative) 03/27/22 Unknown Urine Ketones Trace (Negative) H 03/27/22 Unknown Urine Nitrite Negative (Negative) 03/27/22 Unknown Ur Leukocyte Esterase Negative (Negative) 03/27/22 Unknown Urine WBC (Auto) 1-5 /hpf (0-5) 03/27/22 Unknown Urine RBC (Auto) 0-4 /hpf (0-4) 03/27/22 Unknown U Hyaline Cast (Auto) 1-5 /lpf (0-5) 03/27/22 Unknown U Epithel Cells (Auto) 0-5 /lpf (0-5) 03/27/22 Unknown Urine Bacteria (Auto) Negative (Negative) 03/27/22 Unknown 03/27/22 03/27/22 10:15 03:57 POC Glucose 113 H 135 H Electrocardiogram Date: 03/27/22 Findings: + NSR @ (83) Echocardiogram Date: 01/25/22 EF: 55-60% LV Function: normal Valvular Disease: + no significant valvular disease
[2022-03-27] MEDS ORDERED: KETAMINE 50 MG/5 ML SYRINGE ONE (10:25)
[2022-03-27] MEDS ORDERED: fentaNYL citrate 100 MCG/2 ML VIAL IV PRN (10:34)
[2022-03-27] MEDS ORDERED: ATROPINE SULFATE 0.1 MG/ML 10ML SYR IV PRN (10:34)
--- NOTE | 2022-03-27 11:17 | Operative Report ---
PG Post Operative Report Pre & Post Diagnosis Operation Date: 03/27/22 12:45 Pre-Op Diagnosis: Calculus of left ureter Post-Op Diagnosis: Calculus of left ureter I identified the patient and participated in the time-out.: Yes Procedure Operation Date: 03/27/22 12:45 Actual Procedures p Cystoscopy with Left Stent Placement(Left) - Malik Villegas MD Surgeon Malik Villegas MD Electric Installer none Estimated Blood Loss 0 Findings Consistent with Post-Op Diagnosis Specimens none Description of Procedure The patient was identified in the preoperative holding area, appropriate informed consents were reviewed and completed and the patient was transferred to the operative suite. Upon arrival, appropriate antibiotics and anesthesia were administered and the patient was placed in dorsal lithotomy position and prepped and draped in sterile fashion. Begin the case a 22 [place] cystoscope was passed per the urethra. Inspection revealed a healthy-appearing urethra with a moderate size prostate. Inspection of the bladder was unremarkable. The left and right ureteral orifices were in orthotopic position. The left UO was cannulated with a sensor wire and a 5 [place] open-ended catheter. The wire advanced the kidney without difficulty. There was a discharge of urine after advancing the wire. A 6 [place] by 26 mm air stent was placed with a good curl in the kidney as well as the bladder. He was reversed of anesthesia and taken to the recovery room in stable condition. There were no complications. I attest to the content of the Intraoperative Record and any orders documented therein. Any exceptions are noted below.
--- NOTE | 2022-03-27 11:27 | Anesthesiology Progress Note ---
Date of Service March 27, 2022 Anesthesia Post Procedure Vital Signs Vital Signs: Temp Pulse Pulse Pulse Resp BP BP 03/27/22 11:25 84 14 108/70 03/27/22 11:15 85 16 111/80 03/27/22 11:08 37.3 C 86 12 108/75 03/27/22 10:16 36.7 C 85 18 111/74 03/27/22 08:57 81 110/71 03/27/22 07:45 03/27/22 07:24 36.6 C 75 16 99/65 L 03/27/22 05:49 03/27/22 04:24 03/27/22 04:24 36.4 C L 84 20 123/74 03/27/22 04:11 36.4 C L 84 20 123/74 03/27/22 03:00 84 17 134/70 03/27/22 00:09 98 H 16 133/78 03/26/22 22:38 36.1 C L 101 H 20 149/89 H Pulse Ox O2 Del Method O2 Flow Rate 03/27/22 11:25 96 Room Air 03/27/22 11:15 98 Nasal Cannula 2 03/27/22 11:08 97 Nasal Cannula 2 03/27/22 10:16 97 Room Air 03/27/22 08:57 95 Room Air 03/27/22 07:45 Room Air 03/27/22 07:24 95 Room Air 03/27/22 05:49 Room Air 03/27/22 04:24 Room Air 03/27/22 04:24 96 Room Air 03/27/22 04:11 96 Room Air 03/27/22 03:00 93 03/27/22 00:09 96 03/26/22 22:38 96 Pain Intensity Left Flank: Pain Intensity: 2 Transfer of Care Handoff Completed per policy Notes Mental Status: alert / awake / arousable Patient Amnestic to Procedure: Yes Nausea / Vomiting: adequately controlled Pain: adequately controlled Airway Patency, RR, SpO2: stable & adequate BP & HR: stable & adequate Hydration State: stable & adequate Anesthetic Complications: no major complications apparent
--- NOTE | 2022-03-27 12:35 | Fluoroscopy Report ---
INTRAOPERATIVE RADIOGRAPH CLINICAL HISTORY: Left ureteral stent placement. Fluoroscopy time: 11 seconds. FINDINGS: A single spot fluoroscopic image of the left upper quadrant is presented. This shows the pr oximal end of a left ureteral stent projecting over the left renal pelvis. No calcifications are mele rly seen and the proximal aspect of the stent. IMPRESSION: Intraoperative image from a left ureteral stent placement procedure as above. Electronically signed by: Derrick Mendoza M.D. 03/27/2022 12:34 PM
--- NOTE | 2022-03-27 17:21 | Discharge Summary ---
Date of Service March 27, 2022 Admission HPI Per Admitting Provider Chris Hall is a 51yo male with history of DM, HTN, HLP and prior renal stones presenting with 7+ hours of left flank pain. Pain is intermittent, severe, 8/10 with radiation into the anterior abdomen. Similar to prior renal stones. He had cystoscopy with stent placement in January 2022 No additional complaints. He denies fever, chills, chest pain, cough, SOB. IN the ER he is afebrile, HD stable, non-toxic in appearance. ER Course: Toradol Admission Exam Per Admitting Provider General: patient resting comfortably, NAD, non-toxic in appearance, AA&O x 4 Skin: warm, dry, intact, no rashes or lesions HEENT: NC/AT, PERRL, EOMI, anicteric sclera, conjunctiva without injection, external ear normal to inspection and nontender, nares patent, moist mucus membranes, dentition intact, no oropharyngeal lesions, neck supple, trachea midline, no LAD, no thyromegaly, no JVD Heart: +S1/S2, regular, no m/r/g Lungs: equal air entry bilaterally, no rales/rhonchi/wheezes Abd: +BS, soft, NT/ND, no masses/organomegaly/ascites, left flank tenderness Ext: warm, 2+ pulses in UE/LE bilaterally, no clubbing/cyanosis or edema Neuro: nonfocal, patient AA&O x 4, speech intact, no facial droop, moving all extremities on command with equal strength 5/5 Principal Diagnosis Renal Stone Discharge Exam Constitutional WD/WN, vitals as above Neck trachea midline, no thyromegaly Respiratory normal respiratory effort, lungs clear to auscultation Cardiovascular RRR, no murmur, no edema Gastrointestinal (Abdomen) normal bowel sounds, soft, nontender, no hepatosplenomegaly Skin no rashes, warm and dry Psychiatric A+Ox3, euthymic affect Discharge Data Allergies Allergy/AdvReac Type Severity Reaction Status Date / Time No Known Allergies Allergy Verified 03/13/22 07:38 Consultations 03/27/22 00:12 ED Decision to Admit Stat 03/27/22 04:11 Consult Urology Routine Procedures Performed Operation Date: 03/27/22 12:45 Actual Procedures p Cystoscopy with Left Stent Placement(Left) - Malik Villegas MD Ordered Studies 03/26/22 22:55 CT abd pelvis wo con Stat 03/27/22 FL KUB Routine Hospital Course (1) Calculus of left ureter: (2) Acute flank pain: (3) Renal stone: Plan Chris is a 51 y/o male admitted with intractable left flank pain and ADRI secondary to an obstructing 6mm left UPJ stone identified via CT. He has a history of renal stones and had prior stent placed in January 2022. He presented with intense pain and was given toradol in ER. Was admitted and urology consult ed, initially NPO and given dose of IV Ceftriaxone (mild leukocytosis, not overly suspicious for infection). Given lack of improvement in pain and had not passed stone, urology decided to proceed with cystoscopy. Cystoscopy and left stent placement successfully completed. After procedure, patient noted decrease in pain and tolerated regulat diet. Per urology, patient will have additional outpatient procedure on Saturday. Patient discharged on several days of Bactrim to cover until outpatient procedure for this coming Saturday, also sent Flomax per urology. Prescription of hydrocodone given for 10 tablets. Patient should continue to follow up with urology and schedule hospital f/u with PCP within 1-2 weeks. Total Time Total Time Spent Total Time Spent (In Minutes): . Discharge Plan Discharge Items Patient Disposition: Home - Self-Care Reason For Visit: FLANK PAIN Discharge Diagnosis: Renal stone, s/p stent placement Activity: Per Instructions section Non-emergency contact: Primary Care Provider and Urologist Call non-emergency contact if: your pain is not controlled, your pain is worsening and your temperature is above 101.5 Follow-up/Referrals: Charlie Camarillo III, CRNP [Primary Care Provider] - 04/03/22 9:20 am Malik Villegas MD [Physician] - Diet: Regular Addtl Attending Provider Instructions: kel Perez presented to the ER yesterday with intense left flank pain in the setting of previous kidney stones. After a CT scan, you were found to have a 5mm obstructing stone. Urology was consulted and evaluated you, due to ongoing pain and not passing the stone overnight- urology completed a cystoscopy procedure and placed a ureter stent. After successful placement of the stent, you noted improvement in your pain and tolerated food and liquids. You are being discharged today with plan for urology follow up/additional treatment of stone on 03/30. You will also be sent home with pain medication to be taken for ongoing pain. We are also sending an antibiotic (Bactrim) that you will take two times per day until your procedure on Saturday. You will also be sent home on Flomax and Pyridium for discomfort from the stent. Please read below for additional information. * Please call your primary care doctor to make a follow up appointment to be seen in the next 1-2 weeks following your discharge. Addtl Residential Real Estate Appraiser Provider Instructions: Please call the urology office at [phone] with any questions, concerns or n eed to reschedule appointments for any reason. We are happy to assist you. You are scheduled for stone treatment on Friday 03/[address] Villegas at [facility]. Please call [phone] on 03/29 between 1PM3PM to get your arrival time. While you have a ureteral stent in place: Some discomfort is normal. Certain movements may trigger pain or a feeling that you need to urinate. You may also feel mild soreness or pressure before or during urination. These symptoms should go away a few days after the stent is removed. Your urine may be slightly pink or red. This is due to bleeding caused by minor irritation from the stent. This may happen on and off while you have the stent, it is not harmful and is to be expected. Medication to help minimize discomfort or bladder spasms, or to prevent infection may be prescribed. Take this as directed. Drink plenty of fluids to help flush out your urinary tract. When to call [facility] at [phone]: Your urine contains heavy blood clots or you are unable to urinate Fever of 101F or higher, chills, nausea, or vomiting Your pain is not relieved with medication The end of the stent comes out of your urethra Pending Studies at Discharge: No Stand-Alone Forms: My [facility], Pain - Opioid Pain Management, Smoking Cessation Medications and DC Order Prescriptions: New tamsulosin 0.4 mg Capsule 0.4 mg PO QAM Qty: 4 0RF sulfamethoxazole-trimethoprim [Bactrim DS] 800-160 mg tablet 1 tab PO BID 4 Days Qty: 8 0RF Continued metformin 1,000 mg tablet 1,000 mg PO BID Qty: 180 3RF amoxicillin 500 mg capsule 500 mg PO BID Qty: 180 3RF Label Comments: TAKES CHRONIC FOR CELLULITUS IN LEGS econazole 1 % cream 1 applic topical BID PRN (Reason: ATHLETES FOOT) Rx Instructions: Apply sparingly to both feet lisinopril 10 mg tablet 10 mg PO DAILY dulaglutide 3 mg/0.5 mL pen injector 3 mg SQ Q7D Rx Instructions: TAKES ON SATURDAYS atorvastatin 10 mg tablet 10 mg PO HS phenazopyridine 200 mg tablet 200 mg PO Q8 PRN (Reason: Pain) Changed hydrocodone-acetaminophen 5-325 mg tablet 1 tab PO .EVERY 4-6 HOURS PRN (Reason: Pain) Qty: 10 0RF Discontinued amoxicillin 500 mg capsule 500 mg PO BID Discharge Orders: Discharge Order (Routine); Ordered 03/27/22 Ordered By: Kanchan Nickerson Admission Data Admit Date/Time: 03/27/22 00:28 Attending Provider: Luma Michelle Admit Provider: Shannan Parker Primary Care Provider: Charlie Camarillo III Other Providers: Shannan Parker ; Alejandro Rodriguez. Other Interventions: Discharge Summary Assessment (RN) Last Done: 03/27/22 16:43 Supervising Physician Co-Signing Physician Notes Resident Physician Supervision Note: I independently interviewed and examined the patient and verified the sharpe history and physical, reviewed labs and image studies and agree with resident findings and care plan.
[2022-03-27] MEDS ORDERED: ATORVASTATIN 10 MG TAB PO SCH (21:00)
== END 2022-03-27 17:31 | disposition home or self-care (01) ==
LOC: ED 22:35 → SUATTDRO 03-27 00:28 → 3W 03-27 00:28 → INTOOBSV 03-27 00:28 → 3W 03-27 04:04

== ENCOUNTER 2022-08-07 08:15 | Inpatient (IN) ==
[2022-08-07] MEDS ORDERED: SODIUM CHLORIDE 0.9% 1000ML 1,000 ML IV STA (08:31)
[2022-08-07] MEDS ORDERED: KETOROLAC TROMETHAMINE 15 MG/ML VIAL IV STA (08:31)
[2022-08-07] MEDS ORDERED: HYDROmorphone INJ 0.5 MG/0.5 ML SYR IV STA (08:31)
[2022-08-07] MEDS ORDERED: ONDANSETRON INJ 2 MG/ML 2 ML VIAL IV STA (08:31)
[2022-08-07 09:06] LABS: Basophils # (auto) 0.04 K/uL (0-0.2); Basophils % (auto) 0.5 %; Eosinophils # (auto) 0.26 K/uL (0-0.50); Eosinophils % (auto) 3.2 %; Hematocrit (blood only) 39.5 % (42.0-52.0); Hemoglobin 14.2 g/dl (14.0-18.0); Immature Granulocytes # (auto) 0.04 K/uL (0.01-0.20); Immature Granulocytes % (auto) 0.5 %; Lymphocytes # (auto) 1.16 K/uL (1.2-3.4); Lymphocytes % (auto) 14.2 %; Mean Corpuscular Hemoglobin 31.3 pg (25.0-34.0); Mean Corpuscular Hgb Conc 35.9 g/dL (32.0-36.0); Mean Corpuscular Volume 87.2 fL (80.0-100.0); Mean Platelet Volume 10.1 fL (9.4-12.4); Monocytes # (auto) 0.65 K/uL (0.11-0.59); Neutrophils % (auto) 73.6 %; Platelet Count 211 K/uL (130-400); RDW Coefficient of Variation 12.2 % (11.5-14.5); RDW Standard Deviation 39.1 fL (36.4-46.3); Red Blood Count 4.53 M/uL (4.70-6.10); White Blood Count 8.15 K/ul (4.8-10.8)
[2022-08-07 09:19] LABS: Albumin Globulin Ratio 1.6 (0.9-2); Albumin Level 4.6 gm/dl (3.4-5.0); BUN Creatinine Ratio 15.8 (10-20); Bilirubin,Total 0.7 mg/dl (0.2-1.0); Calcium 9.8 mg/dl (8.6-10.3); Creatinine Clr Calc Pharmacy 69.8 ml/min; Est GFR (African American) 60.2 ml/min; Est GFR (Non-African American) 51.9 ml/min; Globulin 2.9 gm/dl (2.5-4.0); Potassium 4.5 mmol/L (3.5-5.1); Total Protein 7.5 gm/dl (6.0-8.3)
--- NOTE | 2022-08-07 09:35 | XRay Report ---
XR KUB/Abdomen 1 view CLINICAL HISTORY: R flank pain, kidney stone TECHNIQUE: 1 view of the abdomen was obtained. Comparison: None available at the time of this dictation. FINDINGS: Right calcific densities are seen compatible with stone. The osseous structures are grossly unremarka ble. The bowel gas pattern is nonobstructive. A moderate amount of stool is noted within the large julio wel. IMPRESSION: Possible right renal stones. No ureteral or pelvic stones. ACT 112: Negative or not required by law. Electronically signed by: Justino Galan M.D. 08/07/2022 9:34 AM
[2022-08-07 10:38] LABS: Appearance Urine Clear (Clear); Bilirubin Urine Negative (Negative); Blood Urine Negative (Negative); Color Urine Yellow; Glucose Urine UA Negative (Negative); Ketones Urine 1+ (Negative); Leukocyte Esterase Urine Negative (Negative); Nitrite Urine Negative (Negative); Protein Urine Negative (Negative); Specific Gravity Urine 1.021 (1.000-1.030); Urobilinogen Urine Negative (Negative)
--- NOTE | 2022-08-07 11:04 | CT Scan Report ---
CT abd pelvis wo con CLINICAL HISTORY: R renal colic TECHNIQUE: Helical axial images of the abdomen and pelvis were obtained. Automated dose lowering tech niques and/or adjustment according to patient size were utilized for this exam. This exam was perfor med without intravenous contrast. CT DOSE: 693.98 mGy.cm COMPARISON: Comparison is made to CT abdomen pelvis 03/26/2022 FINDINGS: Lower chest: Bibasilar atelectasis versus scarring is seen. Liver: Hepatic steatosis is noted. Gallbladder and biliary tree: No calcified gallstones. Normal caliber wall. No intra- or extrahepatic biliary ductal dilation. Pancreas: Unremarkable, no focal lesions. Spleen: Unremarkable. Adrenals: Unremarkable. Kidneys and ureters: Right proximal ureteral stone measures 11 mm in diameter with associated hydrone phrosis. There is a right renal cyst measuring 33 mm. Bladder: Limited evaluation due to underdistention. Reproductive organs: Unremarkable. Bowel: Unremarkable. 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 The appendix is normal. Lymph nodes Retroperitoneal: Unremarkable. Pelvic: Unremarkable. Mesenteric: Unremarkable. Peritoneum: Normal. Vessels: Unremarkable. Abdominal wall: A fat-containing umbilical hernia is seen. Bones: Degenerative changes in the visualized spine. 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 IMPRESSION: 1. Obstructive right ureteral stone with associated hydronephrosis. 2. Additional findings as above. ACT 112: Negative or not required by law. Electronically signed by: Justino Galan M.D. 08/07/2022 11:02 AM
[2022-08-07] MEDS ORDERED: HYDROmorphone INJ 0.5 MG/0.5 ML SYR IV PRN (12:00)
--- NOTE | 2022-08-07 12:51 | History & Physical Report ---
Date of Service August 07, 2022 Assessment & Plan (1) Ureterolithiasis: Plan: NPO, NSS @ 150ml/hr Start tamsulosin not necessarily for current stone but would help with expulsion following lithotripsy Pain medications with Toradol 1st line, Morphine 2-4mg IV second line Consult urology (2) Hydronephrosis of right kidney: Plan: No ADRI (3) Uncontrolled type 2 diabetes mellitus: Plan: HbA1C 8.5 in May Takes metformin and Trulicity (last took 6 days ago) - will hold home meds Novolog: --Goal BSG Range: Low 110 mg/dL, High 140 mg/dL --Correction Factor: 45 mg/dL/unit No carb ratio --BSGs ACHS if eating, q6h if npo (4) Hypertension: Plan: Hold antihypertensives in setting of acute ureterolithiasis (5) Hypercholesterolemia: Plan: Continue atorvastatin Plan VTE Prophylaxis - low risk Diet - NPO Disposition - admit to med/surg Admission and Anticipated Discharge Date Admission Date: August 07, 2022 History of Present Illness Chief Complaint: Right abdominal pain Primary Care Provider: Charlie Camarillo III, KLARISSA Chris Hall is a 52 year old male with multiple kidney stones in the past who presents to the ER with right abdominal pain that started at 4:30am. Severity 9/10 at worse, currently 5/10. No radiation. No fever or chills. No dysuria. Known stone on right side in renal pelvis but monitoring conservatively with imaging per prior urology note. Allergies Allergy/AdvReac Type Severity Reaction Status Date / Time No Known Allergies Allergy Verified 06/11/22 12:04 Home Medications Medication Instructions Recorded Confirmed Type econazole 1 % topical cream 1 applic topical BID PRN ATHLETES 11/10/20 06/11/22 History FOOT metformin 1,000 mg tablet 1,000 mg PO BID #180 tabs 01/24/22 08/07/22 Rx amoxicillin 500 mg capsule 500 mg PO BID #180 caps 01/29/22 08/07/22 Rx atorvastatin 10 mg tablet 10 mg PO QAM 05/30/22 08/07/22 History dulaglutide 4.5 mg/0.5 mL 4.5 mg subcut Q7D 05/30/22 08/07/22 History subcutaneous pen injector hydrocodone 5 mg-acetaminophen 325 1 tab PO Q6H PRN Pain 05/30/22 08/07/22 History mg tablet lisinopril 10 mg tablet 10 mg PO DAILY 08/07/22 08/07/22 History Past Med/Surg History Medical History (Updated 08/07/22 @ 23:38 by Taqueria Ernandez MD) Fatty liver History of anesthesia reaction "ANESTHESIA NOT WORKING FOR HAND SURGERY, COULD FEEL EVERYTHING" History of asthma as a child History of colon polyps History of COVID-19 11/2020, pcr>STILL HAS SOME LOSS OF SMELL. mid-12/2021, home test>body aches, runny nose>resolved 9 days, "still has loss of smell and some things still don't taste good" 05/30/22 - TASTE & SMELL HAS MIDLY IMPROVED, STILL ALTERED MOST RECENT HX COVID 01 JAN 2022 History of kidney stones Hypercholesterolemia Hypertension Kidney stones MAR 2022 - HX SX INTERVENTION KIDNEY STONE REMAINS, NO CURRENT PROBLEMSWITH, FOLLOWING DR ARMAS Obese Recurrent cellulitis AMOXICILLIN PROPHYLACTIC DAILY Renal cyst pt denies Splenomegaly pt denies Type 2 diabetes mellitus Surgical History H/O umbilical hernia repair History of cystoscopy WITH STONE REMOVAL 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) History of left cataract surgery History of tonsillectomy and adenoidectomy History of urologic surgery FOR KIDNEY STONES ABOUT 2 YR AGO History of wisdom tooth extraction Hx of colonoscopy Hx of removal of cyst top of head x2-many years ago S/P cystoscopy with ureteral stent placement (03/27/22) Family History Mother Diabetes Valvular heart disease Family history of diabetes mellitus Grandfather Prostate cancer Father Heart disease Metabolic syndrome Thyroid disease Family history of diabetes mellitus Sister Thyroid disease Denies family history of Ovarian cancer Myocardial infarction Breast cancer Colorectal cancer Social History Smoking Status: Never smoker Second Hand Exposure: No; Hx Alcohol Use: No Hx Substance Use: No Preferred Language: Finnish 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 Ability: Effective Visual Impairment: No Limitations Hearing Ability: Normal 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 Motor Vehicle Assembly Required: No Beliefs That Will Affect Care: None marital status: Current Living Situation: Family Current Living Situation Comment: , son-10yrs old, pets current occupational status: employed 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 Seatbelt Use: always Sunscreen Use: Yes Assistive Devices: None Review of Systems Review of Systems: All systems reviewed & are unremarkable except as noted in HPI & below Physical Exam Constitutional: WD/WN, vitals as above Respiratory: normal respiratory effort, lungs clear to auscultation Cardiovascular: RRR, no murmur, no edema Gastrointestinal (Abdomen): Inspection/Auscultation: abdomen normal to inspection; abdomen not distended Percussion/Palpation: + abdomen tender (right sided) and abdomen soft; no guarding and abdomen not rigid Musculoskeletal: no cyanosis or clubbing, extremities motor strength 5/5 Skin: no rashes, warm and dry Neurologic: moves all extremities and awake; not confused Psychiatric: A+Ox3, euthymic affect Genitourinary: + CVA tenderness (right) Results & Data Results & Data Vital Signs (Past 12 Hours) Vital Signs Temp Pulse Pulse Resp BP BP Pulse Ox 08/07/22 12:23 81 08/07/22 11:17 36 C L 77 18 119/70 97 08/07/22 08:31 16 92 08/07/22 08:16 85 18 134/89 96 08/07/22 08:17 36.0 C L 79 20 151/88 H 97 O2 Del Method 08/07/22 12:23 08/07/22 11:17 Room Air 08/07/22 08:31 08/07/22 08:16 08/07/22 08:17 Room Air Laboratory Results Abnormal lab results 08/07/22 08/07/22 08/07/22 Range/Units 08:44 08:44 08:44 RBC 4.53 L (4.70-6.10) M/uL Hct 39.5 L (42.0-52.0) % Lymph # (Auto) 1.16 L (1.2-3.4) K/uL [place] # (Auto) 0.65 H (0.11-0.59) K/uL BUN 24 H (6-23) mg/dl Creatinine 1.52 H (0.6-1.4) mg/dl Glucose 150 H (70-99(Fasting)) mg/dl Urine Ketones 1+ H (Negative) Diagnostic Findings CT abd pelvis wo con CLINICAL HISTORY: R renal colic TECHNIQUE: Helical axial images of the abdomen and pelvis were obtained. Automated dose lowering techniques and/or adjustment according to patient size were utilized for this exam. This exam was performed without intravenous contrast. CT DOSE: 693.98 mGy.cm COMPARISON: Comparison is made to CT abdomen pelvis 03/26/2022 FINDINGS: Lower chest: Bibasilar atelectasis versus scarring is seen. Liver: Hepatic steatosis is noted. Gallbladder and biliary tree: No calcified gallstones. Normal caliber wall. No intra- or extrahepatic biliary ductal dilation. Pancreas: Unremarkable, no focal lesions. Spleen: Unremarkable. Adrenals: Unremarkable. Kidneys and ureters: Right proximal ureteral stone measures 11 mm in diameter with associated hydronephrosis. There is a right renal cyst measuring 33 mm. Bladder: Limited evaluation due to underdistention. Reproductive organs: Unremarkable. Bowel: Unremarkable. 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 The appendix is normal. Lymph nodes Retroperitoneal: Unremarkable. Pelvic: Unremarkable. Mesenteric: Unremarkable. Peritoneum: Normal. Vessels: Unremarkable. Abdominal wall: A fat-containing umbilical hernia is seen. Bones: Degenerative changes in the visualized spine. 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 IMPRESSION: 1. Obstructive right ureteral stone with associated hydronephrosis. 2. Additional findings as above. XR KUB/Abdomen 1 view CLINICAL HISTORY: R flank pain, kidney stone TECHNIQUE: 1 view of the abdomen was obtained. Comparison: None available at the time of this dictation. FINDINGS: Right calcific densities are seen compatible with stone. The osseous structures are grossly unremarkable. The bowel gas pattern is nonobstructive. A moderate amount of stool is noted within the large bowel. IMPRESSION: Possible right renal stones. No ureteral or pelvic stones. Medications Administered ER Medications Given: NSS 1L bolus Dilaudid 0.5mg IV Toradol 10mg IV Ondansetron 4mg IV Dilaudid 0.5mg IV Code Status & VTE Plan Code Status Full VTE Prophylaxis Plan VTE Prophylaxis will be ordered: Yes PG Care Time/CCT Total # of Minutes Spent Total Time Spent with Patient: Total time spent is greater than 50% in coordination of care (as documented) at patient's floor/unit and/or counseling patient: Coding Level of Care Code 32309 INT INP/OBS CARE 2MIN Diagnoses Ureterolithiasis N20.1 Hydronephrosis of right kidney N13.30 Uncontrolled type 2 diabetes mellitus E11.65 Hypertension I10 Hypercholesterolemia E78.00
[2022-08-07] MEDS ORDERED: SODIUM CHLORIDE 0.9% 1000ML 1,000 ML IV SCH (13:00)
[2022-08-07] MEDS ORDERED: GLUCAGON FOR INJ 1 MG VIAL SQ PRN (13:41)
[2022-08-07] MEDS ORDERED: DEXTROSE 50% 50 ML SYRINGE IV PRN (13:41)
[2022-08-07] MEDS ORDERED: GLUCOSE 10 TAB/TUBE PO PRN (13:41)
[2022-08-07] MEDS ORDERED: ACETAMINOPHEN 325 MG TAB PO PRN (13:41)
[2022-08-07] MEDS ORDERED: ONDANSETRON INJ 2 MG/ML 2 ML VIAL IV PRN (13:41)
[2022-08-07] MEDS ORDERED: KETOROLAC TROMETHAMINE 15 MG/ML VIAL IV PRN (13:41)
[2022-08-07] MEDS ORDERED: GLUCOSE 40% GEL 15 GM TUBE PO PRN (13:41)
[2022-08-07] MEDS ORDERED: MoRPHine SULFATE 2 MG/ML CARP IV PRN (13:41)
[2022-08-07] MEDS ORDERED: CARBOHYDRATES FOR HYPOGLYCEMIA PO PRN (13:41)
[2022-08-07] MEDS: MoRPHine SULFATE 4 MG/ML 1 ML CARP\\VIAL IV PRN ×2 (14:22→17:51)
--- NOTE | 2022-08-07 15:27 | Emergency Department Note ---
Impression & Plan Calculus of left ureter ED Provider Note CHIEF COMPLAINT: Kidney stone HISTORY OF PRESENT ILLNESS: This 52-year-old male with a history of nephrolithiasis, diabetes, hypercholesterolemia presents to the emergency department with complaints of right flank pain. Patient states he woke out of bed suddenly at approximately 430 this morning with pain and thought he needed to use the bathroom. He was successful at having a bowel movement but it did not alleviate the pain. Patient is nauseous but has not vomited. He was told after prior ultrasound that the stone is approximately 12 mm. He has passed stones in the past but does not think he will be able to pass the stone. Patient did not take any medications prior to arrival. He denies any fevers or blood in the urine REVIEW OF SYSTEMS: A review of systems was performed with positives and pertinent negatives listed in the history of present illness. 10 systems were reviewed and are otherwise negative. ALLERGIES: see below MEDICATIONS: see below PMH: see below SOCIAL HISTORY: see below DDx: Renal colic, UTI, appendicitis, diverticulitis, mesenteric ischemia, aortic pathology, infections, inflammatory bowel disease, PUD, biliary pathology, as well as other pathologies. PHYSICAL EXAM: Vital signs reviewed. General: Well-appearing 52-year-old male, in no significant distress. HEENT: No scleral icterus, PERRLA, neck supple. Atraumatic. Cardiovascular: Regular rate and rhythm, no extra sounds. Pulmonary: Clear to auscultation bilaterally, normal work of breathing. Abdomen: Soft, nontender, nondistended, positive bowel sounds. Positive right CVA tenderness, negative left CVA tenderness Musculoskeletal: Atraumatic, no peripheral edema. Neurologic: Patient awake alert and oriented x 3 Skin: Warm, dry, no rash EMERGENCY DEPARTMENT COURSE/MDM: This patient was evaluated and appeared to be in no significant distress. IV access was obtained and laboratory work was drawn. External medical records were reviewed. The patient was medicated with IV Dilaudid, Toradol and Zofran for his discomfort. Patient's laboratory work is fairly reassuring. He is noted to have a mild ADRI. UA is negative for inf ection. Abdominal x-ray reveals a possible calculus, CT imaging of the abdomen pelvis was performed in follow-up and is consistent with an 11 mm proximal right ureteral stone. Hydronephrosis is noted. Patient required additional pain management and was given a second dose of Dilaudid. Case was discussed with urology. Patient will be evaluated by the hospitalist service for admission and stent placement later today. MONITORING: An order for cardiac monitoring was placed and the patient is noted to be in a normal sinus rhythm at 79 beats per minute. RADIOLOGY: KUB to my interpretation reveals no evidence of obstruction or free air, possible right ureteral stone. Otherwise defer to radiology. CT imaging of the abdomen pelvis per my review and radiology reveals a 12 mm proximal right ureteral stone with hydronephrosis. DISPOSITION: Admission Past Med/Surg History Medical History Fatty liver History of anesthesia reaction "ANESTHESIA NOT WORKING FOR HAND SURGERY, COULD FEEL EVERYTHING" History of asthma as a child History of colon polyps History of COVID-19 11/2020, pcr>STILL HAS SOME LOSS OF SMELL. mid-12/2021, home test>body aches, runny nose>resolved 9 days, "still has loss of smell and some things still don't taste good" 05/30/22 - TASTE & SMELL HAS MIDLY IMPROVED, STILL ALTERED MOST RECENT HX COVID 01 JAN 2022 History of kidney stones Hypercholesterolemia Hypertension Kidney stones MAR 2022 - HX SX INTERVENTION KIDNEY STONE REMAINS, NO CURRENT PROBLEMSWITH, FOLLOWING DR ARMAS Obese Recurrent cellulitis AMOXICILLIN PROPHYLACTIC DAILY Renal cyst pt denies Splenomegaly pt denies Type 2 diabetes mellitus Surgical History H/O umbilical hernia repair History of cystoscopy WITH STONE REMOVAL 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) History of left cataract surgery History of tonsillectomy and adenoidectomy History of urologic surgery FOR KIDNEY STONES ABOUT 2 YR AGO History of wisdom tooth extraction Hx of colonoscopy Hx of removal of cyst top of head x2-many years ago S/P cystoscopy with ureteral stent placement (03/27/22) Family History Mother Diabetes Valvular heart disease Family history of diabetes mellitus Grandfather Prostate cancer Father Heart disease Metabolic syndrome Thyroid disease Family history of diabetes mellitus Sister Thyroid disease Denies family history of Ovarian cancer Myocardial infarction Breast cancer Colorectal cancer Social History Smoking Status: Never smoker Second Hand Exposure: No; Do You Dip or Chew Tobacco: No; Hx Alcohol Use: No Hx Substance Use: No Preferred Language: Lebanese 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 Ability: Effective Visual Impairment: No Limitations Hearing Ability: Normal 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 Seatbelt Use: always Sunscreen Use: Yes Assistive Devices: None Allergies Allergies Allergy/AdvReac Type Severity Reaction Status Date / Time No Known Allergies Allergy Verified 08/09/22 11:44 Home Meds Home Medications Medication Instructions Recorded Confirmed atorvastatin 10 mg tablet 10 mg PO QAM 05/30/22 08/09/22 dulaglutide 4.5 mg/0.5 mL 4.5 mg subcut Q7D 05/30/22 08/09/22 subcutaneous pen injector hydrocodone 5 mg-acetaminophen 325 1 tab PO Q6H PRN Pain 05/30/22 08/09/22 mg tablet lisinopril 10 mg tablet 10 mg PO DAILY 08/07/22 08/09/22 Previous Rx's Medication Instructions Recorded metformin 1,000 mg tablet 1,000 mg PO BID #180 tabs 01/24/22 amoxicillin 500 mg capsule 500 mg PO BID #180 caps 01/29/22 oxybutynin chloride 5 mg 5 mg PO DAILY #30 tabs 08/08/22 tablet,extended release 24 hr (Ditropan XL) tamsulosin 0.4 mg capsule (Flomax) 0.4 mg PO DAILY #30 caps 08/08/22 Results & Data (ED) Vital Signs Vital Signs - 24 hr 08/07/22 08:17 08/07/22 08:16 08/07/22 08:31 Temperature 36.0 C L Temperature Source Temporal Artery Scan Pulse Rate 79 Pulse Rate [Apical] 85 Pulse Rhythm [Apical] Pulse Strength [Apical] Respiratory Rate 20 18 16 Respiratory Effort / Characteristics Non-Labored Spontaneous Respiratory Depth Normal Respiratory Pattern Blood Pressure 151/88 H Blood Pressure [Left Arm] 134/89 Blood Pressure Mean 109 Blood Pressure Mean [Left Arm] 104 Pulse Oximetry 97 96 92 Oxygen Delivery Method Room Air Sepsis New/Unexplained Change in Mental Status N/A Sepsis Action Taken by Nursing No Action Required 08/07/22 11:17 08/07/22 12:23 Temperature 36 C L Temperature Source Oral Pulse Rate 81 Pulse Rate [Apical] 77 Pulse Rhythm [Apical] Regular Pulse Strength [Apical] Normal Respiratory Rate 18 Respiratory Effort / Characteristics Non-Labored Spontaneous Respiratory Depth Normal Respiratory Pattern Regular Blood Pressure Blood Pressure [Left Arm] 119/70 Blood Pressure Mean Blood Pressure Mean [Left Arm] 86 Pulse Oximetry 97 Oxygen Delivery Method Room Air Sepsis New/Unexplained Change in Mental Status Sepsis Action Taken by Prison Medications Current Medication List: was personally reviewed by me Laboratory Data Attestation: I reviewed the patient's lab results. 08/07/22 08:44 08/07/22 08:44 Lab Results 08/07/22 08/07/22 08/07/22 Range/Units 08:44 08:44 08:44 WBC 8.15 (4.8-10.8) K/ul RBC 4.53 L (4.70-6.10) M/uL Hgb 14.2 (14.0-18.0) g/dl Hct 39.5 L (42.0-52.0) % MCV 87.2 (80.0-100.0) fL MCH 31.3 (25.0-34.0) pg MCHC 35.9 (32.0-36.0) g/dL RDW Std Deviation 39.1 (36.4-46.3) fL RDW Coeff of Sheldon 12.2 (11.5-14.5) % Plt Count 211 (130-400) K/uL MPV 10.1 (9.4-12.4) fL Immature Gran % (Auto) 0.5 % Neut % (Auto) 73.6 % Lymph % (Auto) 14.2 % Meade % (Auto) 8.0 % Eos % (Auto) 3.2 % Baso % (Auto) 0.5 % Neut # (Auto) 6.00 (1.40-6.50) K/uL Lymph # (Auto) 1.16 L (1.2-3.4) K/uL Meade # (Auto) 0.65 H (0.11-0.59) K/uL Eos # (Auto) 0.26 (0-0.50) K/uL Baso # (Auto) 0.04 (0-0.2) K/uL Immature Gran # (Auto) 0.04 (0.01-0.20) K/uL Sodium 139 (136-145) mmol/L Potassium 4.5 (3.5-5.1) mmol/L Chloride 103 (98-107) mmol/L Carbon Dioxide 26 (21-32) mmol/L Anion Gap 10 (3-11) BUN 24 H (6-23) mg/dl Creatinine 1.52 H (0.6-1.4) mg/dl Est Cr Clr Drug Dosing 69.8 ml/min Est GFR ( Amer) 60.2 ml/min Est GFR (Non-Af Amer) 51.9 ml/min BUN/Creatinine Ratio 15.8 (10-20) Glucose 150 H (70-99(Fasting)) mg/dl Calcium 9.8 (8.6-10.3) mg/dl Total Bilirubin 0.7 (0.2-1.0) mg/dl AST 19 (13-39) U/L ALT 23 (7-52) U/L Alkaline Phosphatase 61 (34-104) U/L Total Protein 7.5 (6.0-8.3) gm/dl Albumin 4.6 (3.4-5.0) gm/dl Globulin 2.9 (2.5-4.0) gm/dl Albumin/Globulin Ratio 1.6 (0.9-2) Lipase 19 (11-82) U/L Urine Color Urine Appearance (Clear) Urine pH (4.5-7.5) Ur Specific Kelly (1.000-1.030) Urine Protein (Negative) Urine Glucose (UA) (Negative) Urine Ketones (Negative) Urine Blood (Negative) Urine Nitrite (Negative) Urine Bilirubin (Negative) Urine Urobilinogen (Negative) Ur Leukocyte Esterase (Negative) SARS-CoV-2, RNA, NAAT NEGATIVE (NEGATIVE) 08/07/22 Range/Units 08:44 WBC (4.8-10.8) K/ul RBC (4.70-6.10) M/uL Hgb (14.0-18.0) g/dl Hct (42.0-52.0) % MCV (80.0-100.0) fL MCH (25.0-34.0) pg MCHC (32.0-36.0) g/dL RDW Std Deviation (36.4-46.3) fL RDW Coeff of Sheldon (11.5-14.5) % Plt Count (130-400) K/uL MPV (9.4-12.4) fL Immature Gran % (Auto) % Neut % (Auto) % Lymph % (Auto) % Meade % (Auto) % Eos % (Auto) % Baso % (Auto) % Neut # (Auto) (1.40-6.50) K/uL Lymph # (Auto) (1.2-3.4) K/uL Meade # (Auto) (0.11-0.59) K/uL Eos # (Auto) (0-0.50) K/uL Baso # (Auto) (0-0.2) K/uL Immature Gran # (Auto) (0.01-0.20) K/uL Sodium (136-145) mmol/L Potassium (3.5-5.1) mmol/L Chloride (98-107) mmol/L Carbon Dioxide (21-32) mmol/L Anion Gap (3-11) BUN (6-23) mg/dl Creatinine (0.6-1.4) mg/dl Est Cr Clr Drug Dosing ml/min Est GFR ( Amer) ml/min Est GFR (Non-Af Amer) ml/min BUN/Creatinine Ratio (10-20) Glucose (70-99(Fasting)) mg/dl Calcium (8.6-10.3) mg/dl Total Bilirubin (0.2-1.0) mg/dl AST (13-39) U/L ALT (7-52) U/L Alkaline Phosphatase (34-104) U/L Total Protein (6.0-8.3) gm/dl Albumin (3.4-5.0) gm/dl Globulin (2.5-4.0) gm/dl Albumin/Globulin Ratio (0.9-2) Lipase (11-82) U/L Urine Color Yellow Urine Appearance Clear (Clear) Urine pH 5.0 (4.5-7.5) Ur Specific Kelly 1.021 (1.000-1.030) Urine Protein Negative (Negative) Urine Glucose (UA) Negative (Negative) Urine Ketones 1+ H (Negative) Urine Blood Negative (Negative) Urine Nitrite Negative (Negative) Urine Bilirubin Negative (Negative) Urine Urobilinogen Negative (Negative) Ur Leukocyte Esterase Negative (Negative) SARS-CoV-2, RNA, NAAT (NEGATIVE) Administered Medications Discontinued Medications Atorvastatin Calcium (Atorvastatin 10 Mg Tab) 10 mg PO QAM YAN Stop: 09/07/22 08:59 Last Admin: 08/08/22 08:15 Dose: 10 mg Documented By: YASIR Diatrizoate Meglumine (Diatrizoate Meglumine 30% 100ml Vial) 24 ml INSTIL ONCE ONE Stop: 08/08/22 11:44 Last Admin: 08/08/22 11:20 Dose: 24 ml Documented By: [id number] Hydromorphone HCl (Hydromorphone Inj 0.5 Mg/0.5 Ml Syr) 0.5 mg IV NOW STA Stop: 08/07/22 08:32 Last Admin: 08/07/22 08:45 Dose: 0.5 mg Documented By: FLORECITA Hydromorphone HCl (Hydromorphone Inj 0.5 Mg/0.5 Ml Syr) 0.5 mg IV Q1H PRN PRN Reason: Pain Stop: 08/21/22 11:59 Last Admin: 08/07/22 12:07 Dose: 0.5 mg Documented By: JOSEPHINE Sodium Chloride (Nss 1000ml) 1,000 mls @ 999 mls/hr IV .Q1H1M STA Stop: 08/07/22 09:31 Last Infusion: 08/07/22 10:35 Dose: 0 mls/hr Documented By: Admin: 08/07/22 08:48 Dose: 999 mls/hr Documented By: FLORECITA Sodium Chloride (Nss 1000ml) 1,000 mls @ 150 mls/hr IV .Q6H40M YAN Stop: 09/06/22 12:59 Last Infusion: 08/07/22 18:25 Dose: 0 mls/hr Documented By: Admin: 08/07/22 13:47 Dose: 150 mls/hr Documented By: JOSEPHINE Dextrose/Sodium Chloride (D5w And Nss) 1,000 mls @ 125 mls/hr IV .Q8H YAN Stop: 09/06/22 18:14 Last Admin: 08/08/22 10:21 Dose: 125 mls/hr Documented By: Infusion: 08/08/22 10:15 Dose: 125 mls/hr Documented By: Admin: 08/08/22 02:15 Dose: 125 mls/hr Documented By: Infusion: 08/08/22 02:14 Dose: 0 mls/hr Documented By: Admin: 08/07/22 18:21 Dose: 125 mls/hr Documented By: YASIR Cefazolin Sodium (Ancef 2000mg) 2,000 mg in 15 mls @ 3.75 mls/min IV ONCE ONE; Protocol Stop: 08/08/22 11:47 Last Admin: 08/08/22 11:17 Dose: 3.75 mls/min Documented By: DAVID Insulin Aspart (Insulin Aspart Per Unit Charge) 0 units SC ACHS YAN Stop: 09/06/22 16:29 Last Admin: 08/07/22 17:06 Dose: Not Given Documented By: YASIR Insulin Aspart (Insulin Aspart Per Unit Charge) 0 units SC Q6 YAN Stop: 09/06/22 16:29 Last Admin: 08/08/22 12:38 Dose: Not Given Documented By: Admin: 08/08/22 06:13 Dose: Not Given Documented By: Admin: 08/07/22 23:46 Dose: 1 units Documented By: ERNESTO Co-signed By: RADHA Admin: 08/07/22 18:06 Dose: Not Given Documented By: YASIR Insulin Aspart (Insulin Aspart Per Unit Charge) 0 units SC ACHS YAN Stop: 09/07/22 12:44 Last Admin: 08/08/22 13:30 Dose: Not Given Documented By: YASIR Ketorolac Tromethamine (Ketorolac Tromethamine 15 Mg/Ml Vial) 10 mg IV NOW STA Stop: 08/07/22 08:32 Last Admin: 08/07/22 08:48 Dose: 10 mg Documented By: FLORECITA Ketorolac Tromethamine (Ketorolac Tromethamine 15 Mg/Ml Vial) 15 mg IV Q6H PRN PRN Reason: Pain & Pre PT Stop: 08/12/22 13:40 Last Admin: 08/08/22 04:47 Dose: 15 mg Documented By: ERNESTO Morphine Sulfate (Morphine Sulfate 4 Mg/Ml 1 Ml Carp\\Vial) 4 mg IV Q3H PRN PRN Reason: Pain (6,7,8,9,10) Stop: 08/21/22 13:40 Last Admin: 08/07/22 17:51 Dose: 4 mg Documented By: Admin: 08/07/22 14:22 Dose: 4 mg Documented By: JOSEPHINE Ondansetron HCl (Ondansetron Inj 2 Mg/Ml 2 Ml Vial) 4 mg IV NOW STA Stop: 08/07/22 08:32 Last Admin: 08/07/22 08:48 Dose: 4 mg Documented By: FLORECITA Tamsulosin HCl (Tamsulosin Hcl 0.4 Mg Cap) 0.4 mg PO HS YAN Stop: 09/06/22 20:59 Last Admin: 08/07/22 20:36 Dose: 0.4 mg Documented By: ERNESTO Imaging Data Radiologist's Impression: KUB X-Ray 08/07/22 08:31 XR KUB/Abdomen 1 view CLINICAL HISTORY: R flank pain, kidney stone TECHNIQUE: 1 view of the abdomen was obtained. Comparison: None available at the time of this dictation. FINDINGS: Right calcific densities are seen compatible with stone. The osseous structures are grossly unremarkable. The bowel gas pattern is nonobstructive. A moderate amount of stool is noted within the large bowel. IMPRESSION: Possible right renal stones. No ureteral or pelvic stones. ACT 112: Negative or not required by law. Electronically signed by: Justino Galan M.D. 08/07/2022 9:34 AM Abdomen/Pelvis CT 08/07/22 10:02 CT abd pelvis wo con CLINICAL HISTORY: R renal colic TECHNIQUE: Helical axial images of the abdomen and pelvis were obtained. Automated dose lowering techniques and/or adjustment according to patient size were utilized for this exam. This exam was performed without intravenous contrast. CT DOSE: 693.98 mGy.cm COMPARISON: Comparison is made to CT abdomen pelvis 03/26/2022 FINDINGS: Lower chest: Bibasilar atelectasis versus scarring is seen. Liver: Hepatic steatosis is noted. Gallbladder and biliary tree: No calcified gallstones. Normal caliber wall. No intra- or extrahepatic biliary ductal dilation. Pancreas: Unremarkable, no focal lesions. Spleen: Unremarkable. Adrenals: Unremarkable. Kidneys and ureters: Right proximal ureteral stone measures 11 mm in diameter with associated hydronephrosis. There is a right renal cyst measuring 33 mm. Bladder: Limited evaluation due to underdistention. Reproductive organs: Unremarkable. Bowel: Unremarkable. 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 The appendix is normal. Lymph nodes Retroperitoneal: Unremarkable. Pelvic: Unremarkable. Mesenteric: Unremarkable. Peritoneum: Normal. Vessels: Unremarkable. Abdominal wall: A fat-containing umbilical hernia is seen. Bones: Degenerative changes in the visualized spine. 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 IMPRESSION: 1. Obstructive right ureteral stone with associated hydronephrosis. 2. Additional findings as above. ACT 112: Negative or not required by law. Electronically signed by: Justino Galan M.D. 08/07/2022 11:02 AM Discharge Plan Visit Data Chief Complaint: Kidney Stone Stated Complaint: KIDNEY STONES, RIGHT SIDE ABDOMINAL PAIN ED Provider: Moriah Quintanilla Discharge Problem: Calculus of left ureter Patient Disposition: Admitted As Inpatient Discharge Instructions Interventions: ED Discharge Assessment Last Done: 08/07/22 13:15
[2022-08-07] MEDS ORDERED: INSULIN ASPART PER UNIT CHARGE SC SCH (16:30)
[2022-08-07] MEDS ORDERED: Nursing to Pharmacy Communication SCH (17:15)
[2022-08-07] MEDS: INSULIN ASPART PER UNIT CHARGE SC SCH ×2 (18:06→23:46)
[2022-08-07] MEDS: D5W AND NSS 1,000 ML IV SCH (18:21)
[2022-08-07] MEDS ORDERED: TAMSULOSIN HCL 0.4 MG CAP PO SCH (21:00)
--- NOTE | 2022-08-07 21:02 | Urology Consultation ---
Date of Consultation August 07, 2022 Assessment & Plan (1) Ureterolithiasis: (2) Dysmetabolic syndrome X: (3) Nephrolithiasis: (4) Elevated serum creatinine: Plan Known patient of Dr. Villegas's has history of stone disease. Had known large stone on the right side. Developed sudden onset of pain into flank down into groin. Found to have obstruction secondary to 11 mm stone within the proximal ureter. Patient was admitted with hydration and close monitoring. Is currently tolerating the stone with occasional episodes of more significant pain. Has been utilizing medication with mixed results. Has not had a major increase in fever chills or nausea. Patient does have history of stone disease and had left-sided stones treated in the past. Had undergone ureteroscopy and laser lithotripsy of the left-sided stones. Extensively reviewed options patient's imaging has been reviewed interpreted by myself. Does have obstructing stone on the right side. Patient's white count is 8.15. Hemoglobin has been stable. Patient underwent COVID examination and was found to be negative. Did have an increase in his creatinine. Patient's complicated medical and surgical history has been reviewed and summarized above most pacifically his recent treatment of the left-sided stone. Extensively reviewed options. At this point we will continue with maximum expulsion therapy. We will plan to monitor. We will set up patient for possible intervention if stone becomes significant or more severe. Could also consider stent placement in order to facilitate possible ESWL. If possible consider possible stone treatment. We will plan to monitor patient. Is currently admitted to the hospitalist team appreciate the consultation we will plan to continue to monitor patient. We will make n.p.o. at midnight with plans for possible intervention tomorrow if patient significantly worsens or if possible to set patient up for stone intervention. History of Present Illness Attending Physician: Taqueria Ernandez MD History of Present Illness New consultation for patient with stone, discomfort, obstruction, and ill feelings. Patient developed sudden onset of pain into flank going down and radiating into groin and back in waves comes and goes. Can be severe at times. Discussed and reviewed patient's family history for any history of stone d isease. Also, discussed patient's medical surgery history especially related to any history of urinary issues or stone disease. Patient had undergone stone treatment on the contralateral side. He has the known larger stone on the right side. Developed sudden onset of pain discomfort found to have obstruction secondary to that stone. Had mild increase in creatinine had gone up to 1.52. Had previously undergone laser lithotripsy of the stone on the left side. Has been following with Dr. Villegas. Patient has been n.p.o. with plans for possible intervention. Pain was being controlled with medication. The medication had improved. Has been undergoing expulsion therapy with hydration and close monitoring. Had been placed on antibiotics for possible development of infection. Patient was admitted and is undergoing observation. Allergies Allergy/AdvReac Type Severity Reaction Status Date / Time No Known Allergies Allergy Verified 06/11/22 12:04 Home Medications Medication Instructions Recorded Confirmed Type econazole 1 % topical cream 1 applic topical BID PRN ATHLETES 11/10/20 06/11/22 History FOOT metformin 1,000 mg tablet 1,000 mg PO BID #180 tabs 01/24/22 08/07/22 Rx amoxicillin 500 mg capsule 500 mg PO BID #180 caps 01/29/22 08/07/22 Rx atorvastatin 10 mg tablet 10 mg PO QAM 05/30/22 08/07/22 History dulaglutide 4.5 mg/0.5 mL 4.5 mg subcut Q7D 05/30/22 08/07/22 History subcutaneous pen injector hydrocodone 5 mg-acetaminophen 325 1 tab PO Q6H PRN Pain 05/30/22 08/07/22 History mg tablet lisinopril 10 mg tablet 10 mg PO DAILY 08/07/22 08/07/22 History Patient History Medical History Fatty liver History of anesthesia reaction "ANESTHESIA NOT WORKING FOR HAND SURGERY, COULD FEEL EVERYTHING" History of asthma as a child History of colon polyps History of COVID-19 11/2020, pcr>STILL HAS SOME LOSS OF SMELL. mid-12/2021, home test>body aches, runny nose>resolved 9 days, "still has loss of smell and some things still don't taste good" 05/30/22 - TASTE & SMELL HAS MIDLY IMPROVED, STILL ALTERED MOST RECENT HX COVID 01 JAN 2022 History of kidney stones Hypercholesterolemia Hypertension Kidney stones MAR 2022 - HX SX INTERVENTION KIDNEY STONE REMAINS, NO CURRENT PROBLEMSWITH, FOLLOWING DR VILLEGAS Obese Recurrent cellulitis AMOXICILLIN PROPHYLACTIC DAILY Renal cyst pt denies Splenomegaly pt denies Type 2 diabetes mellitus Surgical History H/O umbilical hernia repair History of cystoscopy WITH STONE REMOVAL 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) History of left cataract surgery History of tonsillectomy and adenoidectomy History of urologic surgery FOR KIDNEY STONES ABOUT 2 YR AGO History of wisdom tooth extraction Hx of colonoscopy Hx of removal of cyst top of head x2-many years ago S/P cystoscopy with ureteral stent placement (03/27/22) Family History Mother Diabetes Valvular heart disease Family history of diabetes mellitus Grandfather Prostate cancer Father Heart disease Metabolic syndrome Thyroid disease Family history of diabetes mellitus Sister Thyroid disease Denies family history of Ovarian cancer Myocardial infarction Breast cancer Colorectal cancer Social History Smoking Status: Never smoker Second Hand Exposure: No; Hx Alcohol Use: No Hx Substance Use: No Preferred Language: British 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 Ability: Effective Visual Impairment: No Limitations Hearing Ability: Normal Utilization Review Coordinator Required: No Beliefs That Will Affect Care: None marital status: Current Living Situation: Family Current Living Situation Comment: , son-10yrs old, pets current occupational status: employed 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 Seatbelt Use: always Sunscreen Use: Yes Assistive Devices: None Review of Systems Review of Systems: All systems reviewed & are unremarkable except as noted in HPI & below Physical Exam Physical Exam: General: Alert and oriented x 3 in no acute distress. Patient is well nourished and well kept. HEENT: Normocephalic Atraumatic. Inspection normal. Cranial Nerves 2-12 Grossly intact. Nares are clear. Neck is supple. Normal inspection of face. Normal inspection of neck. Neurologic: No deficits on inspection. Baseline for motor function and sensory. Psychologic: Normal affect. Respiratory: Nonlabored. No use of accessory muscles. No tachypnea or dyspnea. Cardiovascular: No tachycardia Skin: [place] and Dry. No rashes or visible lesions. Extremities: Moving without issues. No motor deficits on inspection Lymphatics: No edema Abdomen: Soft Non-distended. No rebound or guarding. Results & Data Vital Signs (Past 12 Hours) Vital Signs Temp Pulse Pulse Resp BP BP Pulse Ox 08/07/22 16:41 36.8 C 70 18 131/82 98 08/07/22 16:29 71 19 121/72 97 08/07/22 12:23 81 08/07/22 11:17 36 C L 77 18 119/70 97 O2 Del Method 08/07/22 16:41 Room Air 08/07/22 16:29 Room Air 08/07/22 12:23 08/07/22 11:17 Room Air PG Care Time/CCT Total # of Minutes Spent Total Time Spent with Patient: Total time spent is greater than 50% in coordination of care (as documented) at patient's floor/unit and/or counseling patient: Coding Level of Care Code 71339 IN/OBS CONSULT LVL 5,80M Diagnoses Ureterolithiasis N20.1 Dysmetabolic syndrome X E88.81 Nephrolithiasis N20.0 Elevated serum creatinine R79.89
[2022-08-08] MEDS: D5W AND NSS 1,000 ML IV SCH ×2 (02:15→10:21)
[2022-08-08] MEDS: INSULIN ASPART PER UNIT CHARGE SC SCH ×2 (06:13→12:38)
--- NOTE | 2022-08-08 06:54 | Urology Progress Note ---
Date of Service August 08, 2022 Assessment & Plan (1) Ureterolithiasis: Plan 52-year-old male with a roughly 1 cm right proximal obstructing ureteral calculus Discussed stent placement with patient and his today. Unlikely to treat stone based on location and size. Stone is too big to pass on its own. Risks and benefits discussed and consent obtained. Patient marked N.p.o. until procedure. Suspect patient can go home following stent placement Admission and Anticipated Discharge Date Admission Date: August 07, 2022 Subjective No acute issues overnight. Pain well controlled. Afebrile with stable vitals. Patient n.p.o. in anticipation of stent placement today. Review of Systems Review of Systems: 14 point review of systems negative outside of what is listed above in HPI Physical Exam 2 Physical Exam: General: Alert and oriented, no acute distress HEENT: Normocephalic, mucous membranes moist Pulmonary: Nonlabored respirations Abdomen: Nondistended Extremities: Moves all 4 spontaneously Neuro: No gross deficits Skin: Warm, dry, no rashes noted Results & Data Vital Signs (Past 12 Hours) Vital Signs Temp Pulse Resp BP Pulse Ox O2 Del Method 08/07/22 21:59 36.8 C 83 16 122/74 95 Room Air PG Care Time/CCT Total # of Minutes Spent Total Time Spent with Patient: Total time spent is greater than 50% in coordination of care (as documented) at patient's floor/unit and/or counseling patient: Coding Level of Care Code 26552 SUB INP/OBS CARE 2/35MIN Diagnoses Ureterolithiasis N20.1
[2022-08-08] MEDS ORDERED: ATORVASTATIN 10 MG TAB PO SCH (09:00)
[2022-08-08] MEDS ORDERED: MIDAZOLAM HCL 1 MG/ML 2ML VIAL ONE (10:47)
[2022-08-08] MEDS ORDERED: LIDOCAINE 2% MPF LOCAL 5 ML VIAL ONE (10:47)
[2022-08-08] MEDS ORDERED: fentaNYL citrate PF 100 MCG/2 ML VIAL ONE (10:47)
[2022-08-08] MEDS ORDERED: fentaNYL citrate PF 100 MCG/2 ML VIAL IV PRN (10:59)
[2022-08-08] MEDS ORDERED: ONDANSETRON INJ 2 MG/ML 2 ML VIAL IV PRN (10:59)
[2022-08-08] MEDS ORDERED: ATROPINE SULFATE 0.1 MG/ML 10ML SYR IV PRN (10:59)
[2022-08-08] MEDS ORDERED: ePHEDrine sulfate 50 MG/ML AMP IV PRN (10:59)
--- NOTE | 2022-08-08 10:59 | Anesthesiology Consultation ---
Date of Service August 08, 2022 Assessment & Plan Chart Review Chart Review: Acceptable Risk for Surgery Consults Requested none ASA ASA2 Proposed Anesthesia Anesthesia Type: MAC Risk / Benefits Reviewed With: PT / POA / Parent / Guardian, Accepts Plan and Informed Consent Obtained History Surgery Operation Date: 08/08/22 08:10 Proposed Procedures p Cystoscopy Retrograde Pyelogram, Right Stent Placement - Blue Pennington MD Height/Weight Height: 6 ft Weight: 100 kg Allergies Allergy/AdvReac Type Severity Reaction Status Date / Time No Known Allergies Allergy Verified 06/11/22 12:04 Medications Home Medications Medication Instructions Recorded Confirmed Last Taken metformin 1,000 mg tablet 1,000 mg PO BID #180 tabs 01/24/22 08/07/22 06/10/22 amoxicillin 500 mg capsule 500 mg PO BID #180 caps 01/29/22 08/07/22 06/04/22 05:00 atorvastatin 10 mg tablet 10 mg PO QAM 05/30/22 08/07/22 06/11/22 08:00 dulaglutide 4.5 mg/0.5 mL 4.5 mg subcut Q7D 05/30/22 08/07/22 Unknown subcutaneous pen injector hydrocodone 5 mg-acetaminophen 325 1 tab PO Q6H PRN Pain 05/30/22 08/07/22 Unknown mg tablet lisinopril 10 mg tablet 10 mg PO DAILY 08/07/22 08/07/22 Unknown Active Medications Generic Name Dose Route Start Last Admin Trade Name Freq PRN Reason Stop Dose Admin Atorvastatin Calcium 10 mg 08/08/22 09:00 08/08/22 08:15 Atorvastatin 10 Mg Tab PO 09/07/22 08:59 10 mg QAM YAN Administration Dextrose/Sodium Chloride 1,000 mls @ 125 mls/hr 08/07/22 18:15 08/08/22 10:21 D5w And Nss IV 09/06/22 18:14 125 mls/hr .Q8H YAN Administration Insulin Aspart 0 units 08/07/22 18:00 08/08/22 06:13 Insulin Aspart Per Unit Charge SC 09/06/22 16:29 Not Given Q6 YAN Ketorolac Tromethamine 15 mg 08/07/22 13:41 08/08/22 04:47 Ketorolac Tromethamine 15 Mg/Ml Vial IV 08/12/22 13:40 15 mg Q6H PRN Administration Pain & Pre PT Morphine Sulfate 4 mg 08/07/22 13:41 08/07/22 17:51 Morphine Sulfate 4 Mg/Ml 1 Ml Carp\\Vial IV 08/21/22 13:40 4 mg Q3H PRN Administration Pain (6,7,8,9,10) Tamsulosin HCl 0.4 mg 08/07/22 21:00 08/07/22 20:36 Tamsulosin Hcl 0.4 Mg Cap PO 09/06/22 20:59 0.4 mg HS YAN Administration NPO Date Last Intake of Fluids: 08/07/22 Time Last Intake of Fluids: 23:55 Last Intake of Fluids Comment: sip of water to take meds today Date Last Intake of Solids: 08/07/22 Time Last Intake of Solids: 22:00 Past Medical History Medical History Fatty liver History of anesthesia reaction "ANESTHESIA NOT WORKING FOR HAND SURGERY, COULD FEEL EVERYTHING" History of asthma as a child History of colon polyps History of COVID-19 11/2020, pcr>STILL HAS SOME LOSS OF SMELL. mid-12/2021, home test>body aches, runny nose>resolved 9 days, "still has loss of smell and some things still don't taste good" 05/30/22 - TASTE & SMELL HAS MIDLY IMPROVED, STILL ALTERED MOST RECENT HX COVID 01 JAN 2022 History of kidney stones Hypercholesterolemia Hypertension Kidney stones MAR 2022 - HX SX INTERVENTION KIDNEY STONE REMAINS, NO CURRENT PROBLEMSWITH, FOLLOWING DR ARMAS Obese Recurrent cellulitis AMOXICILLIN PROPHYLACTIC DAILY Renal cyst pt denies Splenomegaly pt denies Type 2 diabetes mellitus Exercise / Class Metabolic Activity II 4-5 Yardwork/Stairs/Walk up hill Past Family History Family History Mother Diabetes Valvular heart disease Family history of diabetes mellitus Grandfather Prostate cancer Father Heart disease Metabolic syndrome Thyroid disease Family history of diabetes mellitus Sister Thyroid disease Denies family history of Ovarian cancer Myocardial infarction Breast cancer Colorectal cancer Past Surgical History Surgical History H/O umbilical hernia repair History of cystoscopy WITH STONE REMOVAL 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) History of left cataract surgery History of tonsillectomy and adenoidectomy History of urologic surgery FOR KIDNEY STONES ABOUT 2 YR AGO History of wisdom tooth extraction Hx of colonoscopy Hx of removal of cyst top of head x2-many years ago S/P cystoscopy with ureteral stent placement (03/27/22) Past Anesthesia History No Hx of Anesthesia Complications and No Family Hx of Anesthesia Complications History of PONV No Hx of PONV and No Hx of Motion Sickness Social History Smoking Status: Never smoker Hx Alcohol Use: No Alcohol type: beer alcohol intake frequency: other Hx Substance Use: No substance use type: does not use Physical Exam Vital Signs Last Vital Signs Temp 97.3 F L 08/08/22 10:47 Pulse 73 08/08/22 10:47 Resp 20 08/08/22 10:47 BP 110/63 08/08/22 10:47 Pulse Ox 97 08/08/22 10:47 O2 Del Method Room Air 08/08/22 10:47 ENMT Mouth: no dentition abnormality Thyromental Distance: > or= 3.5 Finger Breadths Mallampati Class: II Neck normal visual inspection Respiratory normal respiratory effort Auscultation: lungs clear to auscultation bilaterally Cardiovascular Rate/Rhythm: regular rate and regular rhythm Testing Laboratory Results 08/07/22 08:44 08/07/22 08:44 Urine Color Yellow 08/07/22 08:44 Urine Appearance Clear (Clear) 08/07/22 08:44 Urine pH 5.0 (4.5-7.5) 08/07/22 08:44 Ur Specific [place] 1.021 (1.000-1.030) 08/07/22 08:44 Urine Protein Negative (Negative) 08/07/22 08:44 Urine Glucose (UA) Negative (Negative) 08/07/22 08:44 Urine Ketones 1+ (Negative) H 08/07/22 08:44 Urine Nitrite Negative (Negative) 08/07/22 08:44 Ur Leukocyte Esterase Negative (Negative) 08/07/22 08:44 08/08/22 08/07/22 06:07 23:41 POC Glucose 126 H 162 H
[2022-08-08] MEDS ORDERED: ceFAZolin 330 MG/ML 1 GM VIAL ONE (11:18)
[2022-08-08] MEDS ORDERED: PROPOFOL IV EMULSION 10 MG/ML 20 ML VIAL IV ONE (11:28)
[2022-08-08] MEDS ORDERED: ONDANSETRON INJ 2 MG/ML 2 ML VIAL ONE (11:28)
--- NOTE | 2022-08-08 11:28 | Post Operative Brief Note ---
PG Immediate Post Op with CF Date of Surgery August 08, 2022 Pre & Post Diagnosis Right ureteral calculus Operation Date: 08/08/22 08:10 <No data on this case meets the specified criteria> Right ureteral calculus I identified the patient and participated in the time-out.: Yes Procedure Cystoscopy, right retrograde pyelogram with radiographic interpretation, right ureteral stent placement Operation Date: 08/08/22 08:10 <No data on this case meets the specified criteria> Surgeon Blue Pennington MD Appraiser None Estimated Blood Loss 0 Findings See Below Mild to moderate right hydronephrosis. Stent in appropriate position. Drains Other (6 Indonesian by 26 cm right ureteral stent) Anesthesia Type MAC Complications none
--- NOTE | 2022-08-08 11:28 | Operative Report ---
PG Post Operative Report Pre & Post Diagnosis Right ureteral calculus Operation Date: 08/08/22 08:10 <No data on this case meets the specified criteria> Right ureteral calculus I identified the patient and participated in the time-out.: Yes Procedure Cystoscopy, right retrograde pyelogram with radiographic interpretation, right ureteral stent placement Operation Date: 08/08/22 08:10 <No data on this case meets the specified criteria> Surgeon Blue Pennington MD Shrimper None Estimated Blood Loss 0 Findings See Below Moderate right hydronephrosis. Stent in appropriate position Specimens None Drains 6 [place] Island[place] by 26 cm right ureteral stent Anesthesia Type MAC Complications none Indications 52-year-old male with a roughly 1 cm right proximal ureteral calculus. Description of Procedure After informed consent was obtained, the patient was transported operative suite. MAC anesthesia was induced. The patient was placed in dorsolithotomy position prepped and draped in a sterile fashion. They received preoperative Ancef for antibiotic prophylaxis. An appropriate surgical timeout was performed. A 22 [place] rigid scope was inserted per urethra into the bladder. Richard cystoscopy revealed no stones or lesions. I turned my attention the right ureteral orifice and intubated this with a 5 [place] open-ended catheter. A right retrograde pyelogram was shot which showed mild to moderate hydronephrosis. A sensor wire was advanced into the kidney and confirmed fluoroscopically. A 6 [place] by 26 cm right ureteral stent was deployed with a good proximal coil in the renal pelvis and a good distal coil noted in the bladder, confirmed fluoroscopically and under direct visualization, respectively. The bladder was emptied and the scope was removed. This concluded the end of the case. All counts were correct at the end of the case. I was present, scrubbed, and actively participated for the entirety of the procedure. I attest to the content of the Intraoperative Record and any orders documented therein. Any exceptions are noted below.
[2022-08-08] MEDS ORDERED: DIATRIZOATE MEGLUMINE 30% 100ML VIAL INSTIL ONE (11:43)
[2022-08-08] MEDS ORDERED: ceFAZolin 2000MG 2,000 MG/15 ML SYR IV ONE (11:44)
[2022-08-08] MEDS ORDERED: Nursing to Pharmacy Communication SCH (12:15)
[2022-08-08] MEDS ORDERED: INSULIN ASPART PER UNIT CHARGE SC SCH (12:45)
--- NOTE | 2022-08-08 13:14 | Anesthesiology Progress Note ---
Date of Service August 08, 2022 Anesthesia Post Procedure Vital Signs Vital Signs: Temp Pulse Pulse Resp BP BP Pulse Ox 08/08/22 12:35 98.2 F 70 18 95/59 L 95 08/08/22 12:05 97.7 F 74 16 107/66 97 08/08/22 11:55 97.9 F 74 16 102/61 96 08/08/22 11:45 78 18 101/62 96 08/08/22 11:35 98.1 F 80 17 106/59 L 99 08/08/22 10:47 97.3 F L 73 20 110/63 97 08/08/22 07:43 98.1 F 74 18 103/65 96 08/07/22 21:59 98.2 F 83 16 122/74 95 08/07/22 16:41 98.2 F 70 18 131/82 98 08/07/22 16:29 71 19 121/72 97 O2 Del Method O2 Flow Rate 08/08/22 12:35 Room Air 08/08/22 12:05 Room Air 08/08/22 11:55 Room Air 08/08/22 11:45 Room Air 08/08/22 11:35 Oxymask 4 08/08/22 10:47 Room Air 08/08/22 07:43 Room Air 08/07/22 21:59 Room Air 08/07/22 16:41 Room Air 08/07/22 16:29 Room Air Pain Intensity Right Flank: Pain Intensity: 7 Transfer of Care Handoff Completed per policy Notes Mental Status: alert / awake / arousable and participated in evaluation Patient Amnestic to Procedure: Yes Nausea / Vomiting: adequately controlled Pain: adequately controlled Airway Patency, RR, SpO2: stable & adequate BP & HR: stable & adequate Hydration State: stable & adequate Anesthetic Complications: no major complications apparent and Pt Satisfied with anesthetic care
--- NOTE | 2022-08-08 14:45 | Discharge Summary ---
Date of Service August 08, 2022 Admission HPI Per Admitting Provider Chris Hall is a 52 year old male with multiple kidney stones in the past who presents to the ER with right abdominal pain that started at 4:30am. Severity 9/10 at worse, currently 5/10. No radiation. No fever or chills. No dysuria. Known stone on right side in renal pelvis but monitoring conservatively with imaging per prior urology note. Discharge Data Allergies Allergy/AdvReac Type Severity Reaction Status Date / Time No Known Allergies Allergy Verified 06/11/22 12:04 Consultations 08/07/22 12:02 ED Decision to Admit Stat 08/07/22 12:20 Consult Urology Stat Procedures Performed Operation Date: 08/08/22 08:10 Actual Procedures p Cystoscopy, Right Retrograde Pyelogram, Right Stent Placement(Right) - Blue Pennington MD Ordered Studies 08/07/22 10:02 CT abd pelvis wo con Stat 08/08/22 FL retrograde includes kub Routine Hospital Course (1) Ureterolithiasis: NPO, NSS @ 150ml/hr Start tamsulosin not necessarily for current stone but would help with expulsion following lithotripsy Pain medications with Toradol 1st line, Morphine 2-4mg IV second line Consult urology (2) Hydronephrosis of right kidney: No ADRI (3) Uncontrolled type 2 diabetes mellitus: HbA1C 8.5 in May Takes metformin and Trulicity (last took 6 days ago) - will hold home meds Novolog: --Goal BSG Range: Low 110 mg/dL, High 140 mg/dL --Correction Factor: 45 mg/dL/unit No carb ratio --BSGs ACHS if eating, q6h if npo (4) Hypertension: Hold antihypertensives in setting of acute ureterolithiasis (5) Hypercholesterolemia: Continue atorvastatin Plan VTE Prophylaxis - low risk Diet - NPO Disposition - admit to med/surg Discharge Plan Discharge Items Reason For Visit: OBSTRUCTING URETEROLITHIASIS Discharge Diagnosis: obstructing ureterolithiasis Activity: Resume your previous activity Non-emergency contact: Primary Care Provider Call non-emergency contact if: you have any medication questions Follow-up/Referrals: Charlie Camarillo III, CRNP [Primary Care Provider] - Diet: Regular Addtl Attending Provider Instructions: Take Tylenol and ibuprofen as needed for pain. For additional pain medi cation, you can call our office and we can prescribe narcotics. Continue taking Flomax as this can help with stent discomfort. Oxybutynin as needed, however this can cause dry mouth, constipation and difficulty urinating so only use when necessary. It is normal to have blood in his urine while the stent is in place. The more activity perform, the bloody or your urine will be. This is okay as long as you are able to urinate. You will be called regarding a follow-up appointment to determine stone treatment. Call the office earlier with fevers or uncontrolled pain. 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- lifelong prophylaxis per infectious disease atorvastatin 10 mg tablet 10 mg PO QAM hydrocodone-acetaminophen 5-325 mg tablet 1 tab PO Q6H PRN (Reason: Pain) Rx Instructions: Last filled 03/27/2022 dulaglutide 4.5 mg/0.5 mL pen injector 4.5 mg SQ Q7D Patient Comments: CURRENT DOSE IS 3.0 Rx Instructions: Wednesdays lisinopril 10 mg Tablet 10 mg PO DAILY Admission Data Admit Date/Time: 08/07/22 12:43 Attending Provider: Ramsey Wiley Admit Provider: Taqueria Ernandez Primary Care Provider: Charlie Camarillo III Other Providers: Taqueria Ernandez ; Alejandro Rodriguez Coding Diagnoses Ureterolithiasis N20.1 Hydronephrosis of right kidney N13.30 Uncontrolled type 2 diabetes mellitus E11.65 Hypertension I10 Hypercholesterolemia E78.00
--- NOTE | 2022-08-08 14:47 | Fluoroscopy Report ---
INTRAOPERATIVE RADIOGRAPHS CLINICAL HISTORY: Right ureteral stent placement. Fluoro time: 11 seconds Ka,r: 3.10 mGy FINDINGS: 3 spot fluoroscopic views of the right abdomen are correlated with abdominal CT dated 2022. The initial image shows contrast within the right ureter. Contrast injected into the right kyle l collecting system shows at least mild right hydronephrosis. The final image shows the proximal end of a right ureteral stent in place. IMPRESSION: Intraoperative images from a right ureteral stent placement procedure as above. Electronically signed by: Derrick Mendoza M.D. 08/08/2022 2:45 PM
== END 2022-08-08 16:42 | disposition home or self-care (01) | DRG 661 ==
LOC: ED 08:15 → SUATTDRO 12:43 → EDINP 12:43 → 3N 13:15